=== PATIENT | male | born 1940 | race Caucasian/White ===

== ENCOUNTER 2016-11-13 12:13 | Inpatient (IN) | payer OTHER ==
[~2016-11-13] VITALS: Ht 175.3 cm; Wt 136.1 kg
[~2016-11-13 12:13] MED LIST: <VITAMIN> A + D1 APP TOP; ACETAMINOPHEN500 M4 PO; ACETAMINOPHEN650 M2 PO; ACIDOPHILU PO; ALLOPURINOL100 MG PO; ALLOPURINOL300 MG PO; AMIODARONE HCL200 MG PO; AMOX-CLAV 875-1 EACH PO; ANTIVERT 25 MG25 MG PO; ARICEPT10 MG PO; ASPIR 8181 MG PO; AZITHROMYCIN250 M1 PO; BACTRIM DS 8001 TAB PO; BELLADONNA/OPIU1 SU1 PR; BENTYL 10 MG CA10 MG PO; BISACODYL10 MG PR; CALCIUM500 MG PO; CIPRO 500MG TA500 MG PO; CIPRO500 M1 PO; CLOTRIMAZOLE AN TOP; DICYCLOMINE HYD10 MG PO; DIFLUCAN150 MG PO; DIOVAN 160 MG160 MG PO; DIVALPROEX SOD125 M1 PO; DONEPEZIL HYDROC5 MG PO; Ditropan PO; ESCITALOPRAM20 MG PO; Ecotrin PO; FLEET ENEMA 131 UNIT RC; FLORASTOR250 MG PO; GABAPENTIN100 M2 PO; GABAPENTIN100 MG PO; K-DUR 20MEQ TA20 MEQ PO; KEFLEX500 M1 PO; KEFLEX500 MG PO; LASIX20 MG PO; MASON NATURAL325 MG PO; MECLIZINE HCL25 M1 PO; MILK OF MAGNESI30 ML PO; MIRALAX17 GM PO; MIRTAZAPINE15 MG PO; MORPHINE SULFAT15 M1 PO; MORPHINE SULFAT15 MG PO; MORPHINE SULFAT30 M2 PO; MORPHINE SULFAT30 M6 PO; MS CONTIN15 MG PO; MS CONTIN30 MG PO; MSIR PO; MYCOSTATIN POWD15 GM TOP; NEURONTIN100 M1 PO; NORVASC 5MG TAB5 MG PO; NYSTATIN100000 U/2 TOP; NYSTATIN15 G1 TOP; OMEPRAZOLE40 MG PO; OXYBUTYNIN5 MG PO; PANTOPRAZOLE SO40 MG PO; PHOSLO667 M1 PO; SENNA8.6 M1 PO; SENOKOT8.6 MG PO; TRAMADOL HCL50 M1 PO; VIBRAMYCIN 100100 MG PO; VITAMIN D50000 IU PO
[2016-11-13 13:17] LABS: ABSOLUTE BASOPHIL COUNT 0 /CUMM (0.0-0.2); ABSOLUTE EOSINOPHIL COUNT 0.2 /CUMM (0.0-0.7); ABSOLUTE GRANULOCYTE CT 5.3 /CUMM (1.4-6.5); ABSOLUTE LYMPH COUNT 0.8 /CUMM (1.2-3.4); ABSOLUTE MONOCYTE COUNT 0.4 /CUMM (0.10-0.60); BASOPHIL % 0.2 % (0.0-2.0); EOSINOPHIL % 2.5 % (0-5); GRANULOCYTE % 78.3 % (42.2-75.2); MEAN CORPUSCULAR HGB 26.8 PG (27.0-31.0); MEAN CORPUSCULAR VOLUME 83.6 FL (80.0-94.0); MEAN PLATELET VOLUME 9.2 FL (7.4-10.4); PLATELET COUNT 205 /CUMM (130-400); RBC DISTRIBUTION WIDTH 17.1 % (11.5-14.5); RED BLOOD CELL CT 4.43 /CUMM (4.70-6.10); WHITE BLOOD CELL COUNT 6.7 /CUMM (4.8-10.8)
--- NOTE | 2016-11-13 13:20 | ED DYSPNEA/ASTHMA COMPLAINT ---
History of Present Illness General Chief Complaint: Dyspnea (COPD, CHF, Other) Stated Complaint: DIFFICULTY BREATHING Source: patient Exam Limitations: no limitations Vital Signs & Intake/Output Vital Signs & Intake/Output Vital Signs Date Time Temp Pulse Resp B/P Pulse O2 O2 Flow FiO2 Ox Delivery Rate 11/15 0802 97.7 90 20 154/90 96 11/15 0018 98.6 83 20 140/88 91 Room Air 11/14 1616 98.4 90 16 119/67 94 Nasal Cannula 11/14 1010 98 122/84 ED Intake and Output 11/15 0000 11/14 1200 Intake Total 500 420 Output Total 550 850 Balance -50 -430 Intake, IV 300 Intake, Oral 500 120 Number 1 Bowel Movements Output, Urine 550 850 Allergies Coded Allergies: NO KNOWN ALLERGIES (12/26/15) Triage Note: PT BIBA FROM HOME FOR DYSPNEA. PT WAS BEING SEEN BY OCCUPATIONAL THERAPY WHO SAID O2 SAT WAS IN 70'S. PT ARRIVES WITH NORMAL COLORING, NO ACUTE RESP DISTRESS NOTED, O2 SAT 90-94% ON RA. EMS PUT PT ON NRB AT 25% OXYGEN, HOWEVER, PT REFUSED AFTER COUPLE OF MINUTES. Triage Nurses Notes Reviewed? yes HPI: This patient is a 76-year-old female past medical history including atrial fibrillation, COPD, myocardial infarction, hearing loss presented to the emergency department today for evaluation of low oxygen saturation. The patient was brought in by ambulance from home at the request of his occupational therapist was visiting him and reported the patient to have an oxygen saturation in the 70s. The patient is a poor historian due to his hearing loss. When asked if the patient had any pain, he pointed to his chest. He was unable to qualify or quantify this pain. He denied any difficulty breathing. (NASIR ROSA,ROSALVA) Reconcile Medications Acetaminophen 500 MG TABLET 1,000 MG PO TID back pain Allopurinol 100 MG TABLET 1 TAB PO DAILY Gout (Reported) Amiodarone HCl 200 MG TABLET 1 TAB PO DAILY afib (Reported) Amlodipine Besylate 5 MG TABLET 1 TAB PO DAILY HTN (Reported) Betamethasone Dipropionate/C (Clotrimazole and Betamethasone Dipropionate 0) 1 CRE CRE 1 YOCASTA TOP UNKNOWN (Reported) Calcium Acetate 667 MG CAPSULE 1 CAP PO TID CALCIUM SUPPLEMENT (Reported) Donepezil HCl 10 MG TABLET 1 TAB PO DAILY DEMENTIA (Reported) Ergocalciferol (Vitamin D2) (Vitamin D2) 50,000 UNIT CAPSULE 1 CAP PO EVERY Calcium Supplementation (Reported) Furosemide (Lasix) 20 MG TABLET 1 TAB PO DAILY edema (Reported) Gabapentin (Neurontin) 100 MG CAPSULE 1 CAP PO TID neuropathy (Reported) Gabapentin 100 MG CAPSULE 200 MG PO TID neuropathy Nystatin 15 GM CREAM..G. 1 YOCASTA TOP TID PRN rash Tramadol HCl 50 MG TABLET 50 MG PO Q4 PRN PAIN SCALE 7-10 (SEVERE) (EMMANUEL TEAGUE,ORTIZ Llamas) Past History Travel History Traveled to [place] past 21 day No Medical History Any Pertinent Medical History? see below for history Neurological: migraine EENT: hearing loss Cardiovascular: AFIB, CHF (diastolic dysfunction), myocardial infarction Respiratory: COPD Gastrointestinal: GERD, C DIFF Hepatic: NONE Renal: benign prost hyperplasia, chronic kidney disease (h/o CARISA), RENAL FAILURE CKD ARF CHRONIC INDWELLING GARZA hematuria UTI (h/o CARISA episodes) Musculoskeletal: gout Psychiatric: anxiety Endocrine: obesity Blood Disorders: anemia Cancer(s): NONE APPLICATIONS SYSTEM ANALYST/Reproductive: UTI CHRONIC GARZA Other Medical Hx: shingles Paroxysmal atrial fibrillation, GI bleed, diastolic dysfunction, coronary artery disease, hypertension, labyrinthitis, chronic kidney disease, chronic indwelling Garza catheter, BPH, renal calculi, gout, arthritis, DJD, chronic bilateral lower extremity edema, anxiety, depression, iron deficiency anemia. History of MRSA: Yes History of VRE: Yes History of CDIFF: No Surgical History Surgical History: none, . Psychosocial History Who do you live with Spouse Services at Home Nursing What is your primary language Stateless Tobacco Use: Current Not Daily Daily Tobacco Use Amount/Type: Smokeless tobacco daily ETOH Use: 6 Illicit Drug Use: UTD Family History Family History, If Any: BROTHER (Brain tumor). FATHER Relation not specified for: FH: hypertension Hx Contributory? No (ROSALVA BEST PA-C) Review of Systems Review of Systems Constitutional: Reports: no symptoms. Respiratory: Reports: see HPI. Cardiovascular: Reports: see HPI. Comments Unable to obtain full review of systems due to this patient being a poor historian (ROSALVA BEST PA-C) Physical Exam Physical Exam Respiratory: chest non-tender, no respiratory distress, SCATTERED WHEEZES HEARD THROUGHOUT ALL LUNG GARCIA. nO RALES OR RHONCHI APPRECIATED. Comments: Well-developed well-nourished person in no acute distress HEENT: Normal EENT exam, head normocephalic, moist mucous membranes PERRLA bilaterally Pharynx normal. No swelling or edema. Neck: Supple, no lymphadenopathy Back: Normal inspection Cardiovascular: Regular rate and rhythm with no murmurs, rubs, or gallops Respiratory: Chest nontender. No respiratory distress. Breath sounds clear to auscultation bilaterally Abdomen: Obese. Soft. Nontender and nondistended Extremity: Normal and equal pulses. Bilateral, 1+ pitting edema with no weeping , erythema, or ecchymosis Neuro: Alert oriented x3, Cranial nerves II through XII grossly intact. Skin: No appreciable rash on exposed skin, skin is warm and dry. Psych: Mood and affect is normal Core Measures ACS in differential dx? Yes Severe Sepsis Present: No Septic Shock Present: No (NASIR ROSA,ROSALVA) Progress Differential Diagnosis: asthma, AMI, bronchitis, costochondritis, CHF, COPD, musculoskeletal pain, pericarditis, pulmonary embolism, pneumonia, pneumothorax, rib fracture, unstable angina Plan of Care: Orders Procedure Date/time Status BASIC ELECTROLYTES PLUS BUN&CR 11/15 0600 Complete MISSING MEDICATION FORM 11/15 UNK Active Garza, Insertion/Removal/Asses 11/14 1838 Active CULTURE,URINE 11/14 1833 Active BLOOD CULTURE 11/14 1833 Active Transfer patient to 11/14 UNK Active Current Medications Sig/Frandy Start time Last Medication Dose Stop Time Status Admin Ergocalciferol 50,000 IU We 11/19 1800 AC (Drisdol) Nystatin 1 YOCASTA TID PRN 11/13 2200 AC (Mycostatin) Acetaminophen 650 MG Q6P PRN 11/13 2100 AC (Tylenol) Laboratory Tests 11/15/16 0659: Anion Gap 13, Estimated GFR 26 L, BUN/Creatinine Ratio 22.9 Microbiology 11/145 URINE ROUT: Urine Culture - RES 11/14 2054 BLOOD: Blood Culture - RECD 11/14 2034 BLOOD: Blood Culture - RECD Diagnostic Imaging: Viewed by Me: Radiology Read. Discussed w/RAD: Radiology Read. CXR Impression: PATIENT: MARCY LOMELI PRESENT AGE: 76 PATIENT ACCOUNT NO: [id number] : 40 LOCATION: [facility] ORDERING PHYSICIAN: ROSALVA BEST PA-C SERVICE DATE: 11/13/16-8 EXAM TYPE: RAD - XRY- PORTABLE CHEST XRAY EXAMINATION: XR PORTABLE CHEST CLINICAL INFORMATION: Shortness of breath. COMPARISON: 07/03/2016. TECHNIQUE: Portable AP view of the chest was obtained. FINDINGS: The heart appears mildly enlarged. Increased density in the mediastinum inferiorly is likely previously identified tortuous thoracic aorta. Lung volumes are diminished. No focal infiltrate is identified although penetration at the left lung base is somewhat limited due to patient body habitus. There is elevation of the right hemidiaphragm with a moderately to markedly dilated air filled loop of bowel likely the hepatic flexure of the colon which was seen interposed between the liver and anterior abdominal wall interposed on previous CT. Clinical correlation for abdominal symptoms is recommended and follow-up abdominal imaging if indicated. IMPRESSION: Heart is mildly enlarged. Low lung volumes without definite infiltrate or pulmonary edema. There is a moderately to markedly dilated air-filled loop of probable colon under the right hemidiaphragm. Abdominal x-ray should be considered. DICTATED BY: MARY HOLLINGSWORTH MD DATE/TIME DICTATED:11/13/161310 INFORMATION SECURITY RISK ANALYST:EFREM DATE/TIME TRANSCRIBED:11/13/161310 CONFIDENTIAL, DO NOT COPY WITHOUT APPROPRIATE AUTHORIZATION. <Electronically signed in Other Vendor System> SIGNED BY: MARY HOLLINGSWORTH MD 11/13/16 1322 Initial ED EKG: AFIB, RBBB, nonspecific ST T wave chg, 106 BPM Comments: 11/13/2016 1:57:30 PM: I discussed this patient and his workup so far with Dr. Lr. He will be in to evaluate the patient momentarily. 11/13/2016 2:00:42 PM: Dr. Lr is currently at the patient's bedside for face-to -face evaluation. 11/13/2016 2:34:53 PM: This patient was signed out to Dr. Lr for telemetry admission. He will be speaking with on-call director of financial reporting and hospitalist for telemetry admission. (NASIR ROSA,ROSALVA) Comments: I've discussed this patient's case with Dr. Yi. (EMMANUEL TEAGUE,ORTIZ Llamas) Departure Departure Disposition: STILL A PATIENT Condition: Stable Clinical Impression Primary Impression: Elevated d-dimer Secondary Impressions: Acute kidney injury Chest pain Qualifiers: Chest pain type: unspecified Qualified Code: R07.9 - Chest pain, unspecified Hypoxia Referrals: TOMMIE TEAGUE,CARLOS A Andersen (PCP/Family) Departure Forms: Customer Survey General Discharge Information Admission Note Spoke With: JENI YI M.D Documentation of Exam: Documentation of any treatments & extenuating circumstances including Concerns Regarding Discharge (functional status, medication knowledge or non-compliance, living conditions, etc.) that warrant an admission rather than observation: [ This patient is a 76-year-old male with past medical history including chronic kidney disease, acute myocardial infarction, hypertension, and COPD who presented to the emergency department today for evaluation of low oxygen saturations at home. D-dimer is elevated. Troponin 0.06. Atrial fibrillation on EKG which was sinus on prior EKG. This patient is satting between 85 and 92% on room air. He will need to be admitted to telemetry for serial EKGs, serial troponin levels, cardiology consultation, VQ scan to rule out DVT, possible echocardiogram, trend labs, and close monitoring. Given this patient's significant cardiac medical history and history of the present illness, he is a poor candidate for outpatient treatment. Premature discharge could prove medically harmful.] (ROSALVA BEST PA-C) PA/WIDTH STRIPPER Co-Sign Statement Statement: ED Attending supervision documentation- [X] I saw and evaluated the patient. I have also reviewed all the pertinent lab results and diagnostic results. I agree with the findings and the plan of care as documented in the PA's/WIDTH STRIPPER's documentation. [] I have reviewed the ED Record and agree with the PA's/WIDTH STRIPPER's documentation. [] Additions or exceptions (if any) to the PAs/WIDTH STRIPPER's note and plan are summarized below: [] (EMMANUEL TEAGUE,ORTIZ Llamas) Critical Care Note Critical Care Note Critical Care Time: non-applicable (ROSALVA BEST PA-C) Current Medications Sig/Frandy Start time Last Medication Dose Stop Time Status Admin Ergocalciferol 50,000 IU We 11/19 1800 AC (Drisdol) Allopurinol 100 MG DAILY 11/14 1000 AC (Zyloprim) Amiodarone HCl 200 MG DAILY 11/14 1000 AC (Cordarone) Amlodipine Besylate 5 MG DAILY 11/14 1000 AC (Norvasc) Donepezil HCl 10 MG DAILY 11/14 1000 AC (Aricept) Nystatin 1 YOCASTA TID PRN 11/13 2200 AC (Mycostatin) Acetaminophen 650 MG Q6P PRN 11/13 2099 AC (Tylenol) Acetaminophen 1,000 MG Q6P PRN 11/13 2100 AC (Ofirmev) Laboratory Tests 11/14/16 0649: Anion Gap 13, Estimated GFR 21 L, BUN/Creatinine Ratio 21.0, CBC w Diff NO MAN DIFF REQ, RBC 3.80 L, MCV 83.0, MCH 26.9 L, RDW 17.6 H, MPV 9.2, Gran % 85.2 H, Lymphocytes % 10.3 L, Monocytes % 4.1, Eosinophils % 0.1, Basophils % 0.3, Absolute Granulocytes 4.1, Absolute Lymphocytes 0.5 L, Absolute Monocytes 0.2, Absolute Eosinophils 0, Absolute Basophils 0, PUBS MCHC 32.5 L 11/14/16 0250: Troponin I 0.05 11/13/16 2150: Urinalysis LIGHT H, Urine Color YEL, Urine Clarity CLEAR, Urine pH 6.0, Ur Specific [place] 1.025, Urine Protein 100 H, Urine Ketones NEG, Urine Nitrite NEG, Urine Bilirubin NEG, Urine Urobilinogen 0.2, Ur Leukocyte Esterase TRACE H , Ur Microscopic SEDIMENT EXAMINED, Urine RBC 1-3, Urine WBC 5-10 H, Ur Epithelial Cells FEW, Urine Mucus FEW, Urine Hemoglobin MOD H, Urine Glucose NEG 11/13/16 2035: Troponin I 0.05 11/13/16 1345: Anion Gap 16, Estimated GFR 17 L, BUN/Creatinine Ratio 19.1, Glucose 93, Calcium 7.8 L, Magnesium 2.3, Total Bilirubin 0.4, AST 23, ALT 25, Alkaline Phosphatase 91, Troponin I 0.06, Dpi-T-Khxuaqsplzn Pept 1460 H, Total Protein 6.9, Albumin 3.7, Globulin 3.2, Albumin/Globulin Ratio 1.2, D-Dimer 1026 H 11/13/16 1255: pH 7.31 L, pCO2 42, pO2 72 L, HCO3 20 L, ABG O2 Sat (Measured) 92.0 L, P-50 (Temp Corrected) N, Carboxyhemoglobin 1.1 L, O2 Concentration % .21, O2 Delivery Method RA, CBC w Diff NO MAN DIFF REQ, RBC 4.43 L, MCV 83.6, MCH 26.8 L, RDW 17.1 H, MPV 9.2, Gran % 78.3 H, Lymphocytes % 12.5 L, Monocytes % 6.5, Eosinophils % 2.5, Basophils % 0.2, Absolute Granulocytes 5.3, Absolute Lymphocytes 0.8 L, Absolute Monocytes 0.4, Absolute Eosinophils 0.2, Absolute Basophils 0, PUBS MCHC 32.0 L, Phlebotomy Draw Site RIGHT RADIAL Comments: I've discussed this patient's case with Dr. Yi. (EMMANUEL TEAGUE,ORTIZ Llamas) Departure Departure Disposition: STILL A PATIENT Condition: Stable Clinical Impression Primary Impression: Elevated d-dimer Secondary Impressions: Acute kidney injury Chest pain Qualifiers: Chest pain type: unspecified Qualified Code: R07.9 - Chest pain, unspecified Hypoxia Referrals: TOMMIE TEAGUE,CARLOS A Andersen (PCP/Family) Departure Forms: Customer Survey General Discharge Information Admission Note Spoke With: JENI YI M.D Documentation of Exam: Documentation of any treatments & extenuating circumstances including Concerns Regarding Discharge (functional status, medication knowledge or non-compliance, living conditions, etc.) that warrant an admission rather than observation: [ This patient is a 76-year-old male with past medical history including chronic kidney disease, acute myocardial infarction, hypertension, and COPD who presented to the emergency department today for evaluation of low oxygen saturations at home. D-dimer is elevated. Troponin 0.06. Atrial fibrillation on EKG which was sinus on prior EKG. This patient is satting between 85 and 92% on room air. He will need to be admitted to telemetry for serial EKGs, serial troponin levels, cardiology consultation, VQ scan to rule out DVT, possible echocardiogram, trend labs, and close monitoring. Given this patient's significant cardiac medical history and history of the present illness, he is a poor candidate for outpatient treatment. Premature discharge could prove medically harmful.] (NASIR ROSA,ROSALVA) PA/WIDTH STRIPPER Co-Sign Statement Statement: ED Attending supervision documentation- [X] I saw and evaluated the patient. I have also reviewed all the pertinent lab results and diagnostic results. I agree with the findings and the plan of care as documented in the PA's/WIDTH STRIPPER's documentation. [] I have reviewed the ED Record and agree with the PA's/WIDTH STRIPPER's documentation. [] Additions or exceptions (if any) to the PAs/WIDTH STRIPPER's note and plan are summarized below: [] (EMMANUEL TEAGUE,ORTIZ Llamas) Critical Care Note Critical Care Note Critical Care Time: non-applicable (NASIR ROSA,ROSALVA)
--- NOTE | 2016-11-13 16:14 | History & Physical ---
DELFINOMIGELMICHELLE VERDIN 11/13/16 1614: General Information and HPI MD Statement: I have seen and personally examined MARCY LOMELI and documented this H&P. The patient is a 76 year old M who presented with a patient stated chief complaint of Shortness of breath Source of Information: patient, old records Exam Limitations: unable to give history, clinical condition, confusion History of Present Illness: 76 year old morbidly obese gentleman with past medical history of Dementia, COPD not on oxygen, CKD, Paroxymal A.fib not on anticoagulation, BPH with chronic indwelling garza,changed about 2 months ago with past urine cultures growing Escherichia coli, ESBL, chronic anemia, gout, anxiety and depression, BIBA for low Oxygen saturation. On interview patient was not answering questions appropriately and history was taken from his who was at bedside. About a month ago he was admitted to [facility] for a nose bleed for which he was admitted for about 3 days and discharged to [facility] for three weeks. He has been home since the past two weeks. Two days prior to admission, stated that he slept all day and night. Yesterday the visiting nurse found him to have low O2 sats, pt refused to come to ED. Today stated that he was unusally talkative and acting out more and not himself. The O2 sat was again found to be low today. Per he did not complain of chest pain,shortness of breath, leg swelling, fever, abdominal pain or decreased PO intake. He has been have chronic diarrhea since the past 8 months and hisl lexapro was thought to be the culprit and was discontinued two months ago. Allergies/Medications Allergies: Coded Allergies: NO KNOWN ALLERGIES (12/26/15) Compliance With Home Meds: GOOD Past History Travel History Traveled to [place] past 21 day No Medical History Neurological: migraine EENT: hearing loss Cardiovascular: AFIB, CHF (diastolic dysfunction), myocardial infarction Respiratory: COPD Gastrointestinal: GERD, C DIFF Hepatic: NONE Renal: benign prost hyperplasia, chronic kidney disease (h/o CARISA), RENAL FAILURE CKD ARF CHRONIC INDWELLING GARZA hematuria UTI (h/o CARISA episodes) Musculoskeletal: gout Psychiatric: anxiety Endocrine: obesity Blood Disorders: anemia Cancer(s): NONE PUBLIC HEALTH STAFF NURSE/Reproductive: UTI CHRONIC GARZA Other Medical Hx: shingles Paroxysmal atrial fibrillation, GI bleed, diastolic dysfunction, coronary artery disease, hypertension, labyrinthitis, chronic kidney disease, chronic indwelling Garza catheter, BPH, renal calculi, gout, arthritis, DJD, chronic bilateral lower extremity edema, anxiety, depression, iron deficiency anemia. History of MRSA: Yes History of VRE: Yes History of CDIFF: No Surgical History Surgical History: none, . Past Family/Social History Family History Relations & Conditions if any BROTHER (Brain tumor). FATHER Relation not specified for: FH: hypertension Psychosocial History Who Do You Live With? spouse Services at Home: Nursing ETOH Use: 6 Illicit Drug Use: UTD Functional Ability ADLs Needs Assist: dressing, eating, toileting, bathing. Ambulation: OFTEN USES WHEELCHAIR Review of Systems Review of Systems Constitutional: Reports: see HPI. Exam & Diagnostic Data Last 24 Hrs of Vital Signs/I&O Vital Signs Date Time Temp Pulse Resp B/P Pulse O2 O2 Flow FiO2 Ox Delivery Rate 11/13 1915 98.7 92 22 150/87 92 Room Air 11/13 1825 99.9 92 20 97 Room Air Room Air 11/13 1623 99.6 84 20 118/76 100 Nasal 2.0L Cannula 11/13 1459 98.6 84 18 136/94 91 Room Air 11/13 1327 92 11/13 1315 93 Room Air Room Air 11/13 1225 99.1 101 20 136/91 93 Room Air Room Air Intake & Output 11/13 1600 11/13 0800 11/13 0000 Intake Total 0 Output Total Balance 0 Intake, Oral 0 Patient 300 lb Weight Physical Exam General Appearance orient to place, beligerent and tangent speech HEENT PERRLA, dry mucous membranes Cardiovascular Normal S1, Normal S2 Lungs b/l decreased breath sounds Abdomen No Tenderness, distended Extremities venous skin stasis changes Last 24 Hrs of Labs/Aurelio: Laboratory Tests 11/13/16 2035: Troponin I Pending 11/13/16 1345: Anion Gap 16, Estimated GFR 17 L, BUN/Creatinine Ratio 19.1, Glucose 93, Calcium 7.8 L, Magnesium 2.3, Total Bilirubin 0.4, AST 23, ALT 25, Alkaline Phosphatase 91, Troponin I 0.06, Wyd-F-Bbhcxdvnmwf Pept 1460 H, Total Protein 6.9, Albumin 3.7, Globulin 3.2, Albumin/Globulin Ratio 1.2, D-Dimer 1026 H 11/13/16 1255: pH 7.31 L, pCO2 42, pO2 72 L, HCO3 20 L, ABG O2 Sat (Measured) 92.0 L, P-50 (Temp Corrected) N, Carboxyhemoglobin 1.1 L, O2 Concentration % .21, O2 Delivery Method RA, CBC w Diff NO MAN DIFF REQ, RBC 4.43 L, MCV 83.6, MCH 26.8 L, RDW 17.1 H, MPV 9.2, Gran % 78.3 H, Lymphocytes % 12.5 L, Monocytes % 6.5, Eosinophils % 2.5, Basophils % 0.2, Absolute Granulocytes 5.3, Absolute Lymphocytes 0.8 L, Absolute Monocytes 0.4, Absolute Eosinophils 0.2, Absolute Basophils 0, PUBS MCHC 32.0 L, Phlebotomy Draw Site RIGHT RADIAL Diagnostic Data EKG Results afib/aflutter, rate 102 CXR Results IMPRESSION: Heart is mildly enlarged. Low lung volumes without definite infiltrate or pulmonary edema. There is a moderately to markedly dilated air-filled loop of probable colon under the right hemidiaphragm. Abdominal x-ray should be considered. Other Results FINDINGS: The supervisor warping department view demonstrates increasing gaseous distention of the transverse colon. This was noted on the previous exam. In addition, there is interposition of the colon between the liver and anterior abdominal wall, also unchanged. The burden of formed stool is less than before. LUNG BASES: There is mild subsegmental dependent atelectasis of both lower lobes. The heart is enlarged. Coronary artery calcifications are seen. LIVER, GALLBLADDER, AND BILIARY TREE: The liver is normal in size and attenuation. Bile ducts are normal. Numerous small gallstones are present within the otherwise normal-appearing gallbladder. PANCREAS: Normal for age. SPLEEN: Unremarkable. ADRENAL GLANDS: Unremarkable. KIDNEYS AND URETERS: Both kidneys measure 10 cm in length. However, there is cortical atrophy as was previously noted. The renal sinus fat is increased. The small exophytic nodule arises from the upper pole of the right kidney is stable in size when compared to a study done in 2011. BLADDER: Empty via a Garza catheter. GASTROINTESTINAL TRACT: The stomach and small bowel are normal. There is a moderate burden of formed stool in the right colon and left colon. There is mild stool impaction rectosigmoid colon. The transverse colon is partially interposed between the liver and anterior abdominal wall and is gas filled and distended. No obstruction is suspected. No pericecal inflammatory reaction. No free fluid. ABDOMINAL WALL: Small fat-containing right inguinal hernia is seen. LYMPH NODES: Normal. VASCULAR: Unremarkable. PELVIC VISCERA: The prostate gland is small. OSSEOUS STRUCTURES: All visualized discs from the lower cervical spine and throughout the LS-spine show degeneration. Vertebral height is preserved. Again there is Paget's disease involving the left hemipelvis. Heterotopic bone formation is seen in the soft tissues anterior to the proximal right femur. IMPRESSION: 1. Chilaiditi's syndrome. Dilated transverse colon. No intestinal obstruction. 2. Cholelithiasis without cholecystitis. (Gallstones too numerous to count). CT HEAD WO IV CONTRAST FINDINGS: There is no evidence of acute intracranial hemorrhage or territorial infarction. No abnormal mass effect or midline shift is seen. Betts to white matter differentiation is well preserved. No extra-axial fluid collections are identified. There is atrophy with prominence of the ventricles and the sulci and hypodensity of the periventricular white matter due to chronic small vessel ischemic disease. There is vascular calcifications of the internal carotid arteries bilaterally.. The osseous structures and soft tissues are normal. 2.4 cm retention cyst at the left maxillary sinus. Underpneumatized mastoid air cells. Normal aeration of the middle ear cavities. IMPRESSION: No acute intracranial pathology. Assessment/Plan Assessment: 76 year old morbidly obese gentleman with past medical history of Dementia, COPD not on oxygen, CKD, Paroxymal A.fib not on anticoagulation, BPH with chronic indwelling garza,changed about 2 months ago with past urine cultures growing Escherichia coli, ESBL, chronic anemia, gout, anxiety and depression, BIBA for low Oxygen saturation. In ED O2 sats were in low 90's, labs signficant for increased bun/cr, elevated d-dimier and ABG showed mild respiratory acidosis. As Ranked By This Provider Problem List: 1. Altered mental status Assessment/Plan CT scan r/o acute pathology possible delirum triggers: hypoxia vs UTI vs dehydration will montor and if no improvement after management noted will involve psych. 2. Elevated d-dimer Assessment/Plan will obtain V/Q scan to r/o PE 3. Paroxysmal atrial fibrillation Assessment/Plan continue amiodarone, norvasc 4. Acute on CKD Assessment/Plan most likely pre-renal azotemia will give a bolus of 500 ml, followed by maintence fluids 5. DVT prophylaxis Assessment/Plan sc heparin 6. Full code status Core Measures/Miscellaneous Acute Coronary Syndrome ACS Diagnosis: No Cerebrovascular Accident CVA/TIA Diagnosis: No Congestive Heart Failure CHF Diagnosis: No Venous Thromboembolism VTE Risk Factors: Age > 40, Obesity VTE Prophylaxis Ordered Inpt: Pharm- Heparin No Mech VTE prophylaxis d/t: LE Edema No VTE Pharm Prophylaxis d/t: No contraindications VTE Diagnosis: No VTE Type: NONE VTE Confirmed by (Test): NONE Severe Sepsis Severe Sepsis Present: No Septic Shock Septic Shock Present: No Miscellaneous Documentation Attending Case Discussed With: JENI HENDRICKS M.D, JAMES 11/13/16 1615: General Information and HPI Allergies/Medications Home Med list Acetaminophen 500 MG TABLET 1,000 MG PO TID back pain Allopurinol 100 MG TABLET 1 TAB PO DAILY Gout (Reported) Amiodarone HCl 200 MG TABLET 1 TAB PO DAILY afib (Reported) Amlodipine Besylate 5 MG TABLET 1 TAB PO DAILY HTN (Reported) Betamethasone Dipropionate/C (Clotrimazole and Betamethasone Dipropionate 0) 1 CRE CRE 1 YOCASTA TOP UNKNOWN (Reported) Calcium Acetate 667 MG CAPSULE 1 CAP PO TID CALCIUM SUPPLEMENT (Reported) Donepezil HCl 10 MG TABLET 1 TAB PO DAILY DEMENTIA (Reported) Ergocalciferol (Vitamin D2) (Vitamin D2) 50,000 UNIT CAPSULE 1 CAP PO EVERY Calcium Supplementation (Reported) Furosemide (Lasix) 20 MG TABLET 1 TAB PO DAILY edema (Reported) Gabapentin (Neurontin) 100 MG CAPSULE 1 CAP PO TID neuropathy (Reported) Gabapentin 100 MG CAPSULE 200 MG PO TID neuropathy Nystatin 15 GM CREAM..G. 1 YOCASTA TOP TID PRN rash Tramadol HCl 50 MG TABLET 50 MG PO Q4 PRN PAIN SCALE 7-10 (SEVERE) Core Measures/Miscellaneous Miscellaneous Documentation Primary Care Physician: TOMMIE TEAGUE,CARLOS A Andersen Patient sees these Specialists Perianesthesia Rn Level of Patient Care: Telemetry Resident Review Statement Resident Statement: examined this patient, discussed with legal summer intern, agreed with legal summer intern, discussed with family, reviewed EMR data (avail), reviewed images Other Findings: 76 YO man with past medical history of Dementia, COPD not on oxygen, CKD, A.fib not on anticoagulation, BPH with chronic indwelling garza, chronic anemia, gout, anxiety, depression who was last admitted to [facility] in June 2016 and presenting with one-day history of altered mental status predominantly excessive talking and an incidence of hypoxia by visiting nurse with oxygen saturation of 85%. The patient was by bedside and volunteers most of the history as the patient himself is very hard of hearing. He has no history of cough, runny nose, shortness of breath and also denies chest pain though he reported the symptoms to the ER physician. Per the patient has been in his normal state of health with normal appetite no nausea or vomiting he has a chronic indwelling catheter for which she follows with Dr. Chatman and has been on schedule for his catheter changes. He has not had any fevers or chills. On arrival the patient was afebrile MAXIMUM TEMPERATURE 99.1, tachycardic heart rate of 101 respiration of 20 blood pressure 136/91 and saturating 93% on room air, during examination the patient was not on oxygen and was saturating at 94- 96%. Physical examination: obese gentleman not in acute distress, oriented to person and place patient is very vocal strongly insisting to get water to drink before talking or being examined. He has dry mucous membranes with thick mucoid saliva HEENT: no distended neck vessels Respiratory system: decreased breath sounds bilaterally no crackles or crepitations. Abdomen: obese abdomen uniform no palpable mass nor tenderness elicited Extremities: venous stasis skin changes but no any open wounds no edema or cyanosis. Labs: patient has anemia with H&H of 11.8 and 37.5, normal lymphocytes 6700, but area nitrogen of 67 with creatinine of 3.5 and GFR of 17 this is significant deterioration from September 12 when he had creatinine of 1.9 and a GFR of 55 ABG: pH of 7.1 and by mouth oxygen of 72 Imaging: CXR: Low lung volumes without definite infiltrate or pulmonary edema Abdominal CT: Chilaiditi's syndrome. Dilated transverse colon. No intestinal obstruction. Cholelithiasis without cholecystitis. (Gallstones too numerous to count). Assessment and plan: This is a 76 years old gentleman presenting with one-day history of after mental status mainly hyperactivity was found in the field to be hypoxic but on presentation patient had normal oxygen saturation and is saturating well on room air. On examination the patient appears dry with very dry mucous membrane and mucoid saliva, he has ranged renal function with significant increasing creatinine and blood urea nitrogen. Problem list CARISA on CKD Altered mental status A. fib COPD Dementia We will admit the patient to the telemetry floor, keep the patient on auto body repair teacher continue to monitor vital signs every shift and manage different conditions as outlined below. CARISA on CKD Patient appears dry and has a significant change in renal parameters. Will give the patient 500 mL of half normal saline and then continue with half normal saline at 100 mL/h. Repeat renal function tomorrow and if there is no improvement consider nephrology consult. Patient started on heart health diet encourage fluid intake and monitor I and O's. will hold Lasix and consider restarting pending improvement of renal function. Altered mental status Patient reported to be hypoactive more than usual, can be a manifestation of hyperuricemia. Will get a stat head CT scan to rule out any acute brain insult. Chest discomfort Patient reported chest discomfort but in questioning during admission denies any chest pain or palpitations. He has history of coronary artery disease in the past. Will do serial troponin and EKG to rule out ACS. Paroxysmal A. fib Shunt has history of A. fib and is on amiodarone 200 mg daily. Not on anticoagulation February 27 GI bleeding and patient not following up with Coumadin clinic. I have restarted his amiodarone. We'll continue to monitor closely. Dementia Patient has history of dementia and is on Aricept 10 mg daily. Will continue the medication and avoid delirium inducing medications. Hypertension: Continue with home antihypertensive medication amlodipine 5 mg daily, continue to monitor blood pressure. JNEI HENDRICKS MD 11/13/16 9655: Attending MD Review Statement Attending Statement Attending Statement: examined this patient, discuss w/resident/PA/AGRICULTURAL TECHNICAL OFFICER, agreed w/resident/PA/AGRICULTURAL TECHNICAL OFFICER, reviewed EMR data (avail), discussed with nursing, discussed with case mgmt, amended to note Attending Assessment/Plan: Patient seen and examined. I have reviewed and agree with resident's notes. He is a 76-year-old male with history of known oxygen-dependent COPD and atrial fibrillation not on Coumadin. He was brought to the emergency room after visiting nurses reported the patient was hypoxic. He reported similar findings yesterday outpatient mechanical ER. Upon arrival emergency room she was hemodynamically stable. Initially pulse oximetry could not be obtained due to cold extremities entry was saturating 96 room air. Patient is a poor historian responsibly very talkative which his reports is new for him. He however was coherent and oriented 3. He had no focal deficits on examination. He had dry oral mucosa. Lungs are clear bilaterally he has no peripheral edema. Laboratory workup revealed acute on chronic kidney disease and markedly elevated d-dimer. Chest x-ray showed no infectious process. Dilated loops of bowel noted on the x-ray and CT abdomen was obtained pressure dilated loops of bowel patient appeared to be chronic for the patient. Head CT was also obtained which showed no acute intracranial process. Patient offers no respiratory complaints. denies any respiratory complaints at home. ER reports that initially mention patient be dyspneic and complained of chest pain are patient and deny this. Plan: -Monitor on telemetry service for 24 hours to rule out arrhythmia and trend troponins. -VQ scan in to rule out pulmonary embolism although this appears less likely given his lack of pulmonary symptoms and the fact that he is actually not hypoxic. -His acute kidney injury appears to be prerenal. No evidence of obstructive disease noted on abdominal CT. We'll hydrate with IV fluids overnight. Hold his lasix. -Continue patient on his routine home regimen.
--- NOTE | 2016-11-13 16:23 | CT SCAN REPORT ---
EXAMINATION: CT ABDOMEN AND PELVIS WITHOUT CONTRAST CLINICAL INFORMATION: Air-filled dilated hepatic flexure of the colon beneath the right hemidiaphragm on a chest x-ray done today. COMPARISON: Chest x-ray done earlier this afternoon. CT of the abdomen and pelvis on 12/26/2015. TECHNIQUE: Multidetector volumetric imaging was performed from the superior aspect of the liver through the pubic symphysis. Sagittal and coronal reformatted images were obtained on the technologist's workstation. DLP: 2075 mGy-cm FINDINGS: The hydraulic hammer operator view demonstrates increasing gaseous distention of the transverse colon. This was noted on the previous exam. In addition, there is interposition of the colon between the liver and anterior abdominal wall, also unchanged. The burden of formed stool is less than before. LUNG BASES: There is mild subsegmental dependent atelectasis of both lower lobes. The heart is enlarged. Coronary artery calcifications are seen. LIVER, GALLBLADDER, AND BILIARY TREE: The liver is normal in size and attenuation. Bile ducts are normal. Numerous small gallstones are present within the otherwise normal-appearing gallbladder. PANCREAS: Normal for age. SPLEEN: Unremarkable. ADRENAL GLANDS: Unremarkable. KIDNEYS AND URETERS: Both kidneys measure 10 cm in length. However, there is cortical atrophy as was previously noted. The renal sinus fat is increased. The small exophytic nodule arises from the upper pole of the right kidney is stable in size when compared to a study done in 2011. BLADDER: Empty via a Fleming catheter. GASTROINTESTINAL TRACT: The stomach and small bowel are normal. There is a moderate burden of formed stool in the right colon and left colon. There is mild stool impaction rectosigmoid colon. The transverse colon is partially interposed between the liver and anterior abdominal wall and is gas filled and distended. No obstruction is suspected. No pericecal inflammatory reaction. No free fluid. ABDOMINAL WALL: Small fat-containing right inguinal hernia is seen. LYMPH NODES: Normal. VASCULAR: Unremarkable. PELVIC VISCERA: The prostate gland is small. OSSEOUS STRUCTURES: All visualized discs from the lower cervical spine and throughout the LS-spine show degeneration. Vertebral height is preserved. Again there is Paget's disease involving the left hemipelvis. Heterotopic bone formation is seen in the soft tissues anterior to the proximal right femur. IMPRESSION: 1. Chilaiditi's syndrome. Dilated transverse colon. No intestinal obstruction. 2. Cholelithiasis without cholecystitis. (Gallstones too numerous to count).
--- NOTE | 2016-11-13 18:27 | CT SCAN REPORT ---
EXAMINATION: CT HEAD WITHOUT CONTRAST CLINICAL INFORMATION: Acute agitation. COMPARISON: CT head 12/26/2015 TECHNIQUE: Contiguous axial imaging was performed from the skull base to vertex without intravenous administration of contrast. DLP: 1201.41 mGy-cm FINDINGS: There is no evidence of acute intracranial hemorrhage or territorial infarction. No abnormal mass effect or midline shift is seen. Betts to white matter differentiation is well preserved. No extra-axial fluid collections are identified. There is atrophy with prominence of the ventricles and the sulci and hypodensity of the periventricular white matter due to chronic small vessel ischemic disease. There is vascular calcifications of the internal carotid arteries bilaterally.. The osseous structures and soft tissues are normal. 2.4 cm retention cyst at the left maxillary sinus. Underpneumatized mastoid air cells. Normal aeration of the middle ear cavities. IMPRESSION: No acute intracranial pathology.
[2016-11-13 19:15] VITALS: BP 150/87
[2016-11-13 23:35] VITALS: BP 148/86
[2016-11-14 07:48] LABS: ABSOLUTE BASOPHIL COUNT 0 /CUMM (0.0-0.2); ABSOLUTE EOSINOPHIL COUNT 0 /CUMM (0.0-0.7); ABSOLUTE GRANULOCYTE CT 4.1 /CUMM (1.4-6.5); ABSOLUTE LYMPH COUNT 0.5 /CUMM (1.2-3.4); ABSOLUTE MONOCYTE COUNT 0.2 /CUMM (0.10-0.60); MEAN CORPUSCULAR HGB CONC 32.5 G/DL (33.0-37.0)
[2016-11-14 08:16] LABS: BASOPHIL % 0.3 % (0.0-2.0); EOSINOPHIL % 0.1 % (0-5); MEAN CORPUSCULAR HGB 26.9 PG (27.0-31.0); MEAN PLATELET VOLUME 9.2 FL (7.4-10.4); PLATELET COUNT 182 /CUMM (130-400); RBC DISTRIBUTION WIDTH 17.6 % (11.5-14.5); WHITE BLOOD CELL COUNT 4.9 /CUMM (4.8-10.8)
[2016-11-14 08:19] LABS: HEMATOCRIT 31.5 % (42-52)
[2016-11-14 08:20] VITALS: BP 136/60
[2016-11-14 08:39] LABS: GRANULOCYTE % 85.2 % (42.2-75.2)
[2016-11-14] MEDS ORDERED: AMIODARONE HCL200 M1 PO (11:34)
[2016-11-14] MEDS ORDERED: ALLOPURINOL100 M1 PO (11:34)
[2016-11-14] MEDS ORDERED: AMLODIPINE BESYL5 M1 PO (11:35)
[2016-11-14] MEDS ORDERED: CALCIUM ACETAT667 M3 PO (11:36)
[2016-11-14] MEDS ORDERED: DONEPEZIL HCL10 M1 PO (11:36)
[2016-11-14] MEDS ORDERED: VITAMIN D250000 UNIT PO (11:39)
[2016-11-14] MEDS ORDERED: LASIX20 M1 PO (11:40)
--- NOTE | 2016-11-14 13:05 | PN- Housestaff ---
See Addendum Subjective Follow-up For: Mental status CARISA on CKD Tele-Events Since Last Visit: Sinus rhythm first-degree heart block SC interval 0.2 to heart rate 88-93 Subjective: Seen and examined patient, sitting in bed eating breakfast. Did not seem to be in any distress, denied difficulty breathing, chest pain Review of Systems Constitutional: Denies: chills, diaphoresis, fever, malaise, weakness, unexplained weight loss. Cardiovascular: Denies: chest pain, edema, orthopena, palpitations, peripheral edema, syncope. Respiratory: Denies: cough, hemoptysis, orthopnea, short of breath, sputum production, stridor, wheezing. Objective Last 24 Hrs of Vital Signs/I&O Vital Signs Date Time Temp Pulse Resp B/P Pulse O2 O2 Flow FiO2 Ox Delivery Rate 11/14 1010 98 122/84 11/14 0820 98.2 72 17 136/60 95 Nasal Cannula 11/14 0000 Room Air 11/13 2335 98.4 90 22 148/86 92 11/13 2313 Room Air Room Air 11/13 1915 98.7 92 22 150/87 92 Room Air 11/13 1900 94 Room Air 11/13 1825 99.9 92 20 97 Room Air Room Air 11/13 1623 99.6 84 20 118/76 100 Nasal 2.0L Cannula 11/13 1459 98.6 84 18 136/94 91 Room Air Intake & Output 11/14 1600 11/14 0800 11/14 0000 Intake Total 420 600 Output Total 850 540 Balance -430 60 Intake, IV 300 Intake, Oral 120 600 Number 1 Bowel Movements Output, Urine 850 540 Physical Exam General Appearance: Alert, No Acute Distress Cardiovascular: Normal S1, Normal S2 Lungs: Normal Air Movement Current Medications: Current Medications Sig/Frandy Start time Last Medication Dose Route Stop Time Status Admin Acetaminophen 650 MG Q6P PRN 11/13 2100 AC PO Acetaminophen 1,000 MG Q6P PRN 11/13 2100 AC 11/14 IV 1010 Allopurinol 100 MG DAILY 11/14 1000 AC 11/14 PO 1009 Amiodarone HCl 200 MG DAILY 11/14 1000 AC 11/14 PO 1010 Amlodipine Besylate 5 MG DAILY 11/14 1000 AC 11/14 PO 1010 Calcium Acetate 667 MG TID 11/13 2200 AC 11/14 PO 1009 Donepezil HCl 10 MG DAILY 11/14 1000 AC 11/14 PO 1010 Ergocalciferol 50,000 IU We 11/19 1800 AC PO Gabapentin 100 MG TID 11/13 220 AC 11/14 PO 1010 Heparin Sodium 5,000 UNIT Q8 11/13 220 AC 11/14 (Porcine) SC 0518 Nystatin 1 YOCASTA TID PRN 11/13 2200 AC TOP Sodium Chloride 1,000 ML .Q10H 11/13 1830 DC 11/14 IV 11/14 1000 0518 Sodium Chloride 500 ML .Q1H 11/13 1745 DC 11/13 IV 11/13 1844 1756 Tramadol HCl 50 MG Q6 PRN 11/13 2100 AC 11/14 PO 1302 Last 24 Hrs of Lab/Aurelio Results Last 24 Hrs of Labs/Mics: Laboratory Tests 11/14/16 0649: Anion Gap 13, Estimated GFR 21 L, BUN/Creatinine Ratio 21.0, CBC w Diff NO MAN DIFF REQ, RBC 3.80 L, MCV 83.0, MCH 26.9 L, RDW 17.6 H, MPV 9.2, Gran % 85.2 H, Lymphocytes % 10.3 L, Monocytes % 4.1, Eosinophils % 0.1, Basophils % 0.3, Absolute Granulocytes 4.1, Absolute Lymphocytes 0.5 L, Absolute Monocytes 0.2, Absolute Eosinophils 0, Absolute Basophils 0, PUBS MCHC 32.5 L 11/14/16 0250: Troponin I 0.05 11/13/16 2150: Urinalysis LIGHT H, Urine Color YEL, Urine Clarity CLEAR, Urine pH 6.0, Ur Specific [place] 1.025, Urine Protein 100 H, Urine Ketones NEG, Urine Nitrite NEG, Urine Bilirubin NEG, Urine Urobilinogen 0.2, Ur Leukocyte Esterase TRACE H , Ur Microscopic SEDIMENT EXAMINED, Urine RBC 1-3, Urine WBC 5-10 H, Ur Epithelial Cells FEW, Urine Mucus FEW, Urine Hemoglobin MOD H, Urine Glucose NEG 11/13/16 2035: Troponin I 0.05 11/13/16 1345: Anion Gap 16, Estimated GFR 17 L, BUN/Creatinine Ratio 19.1, Glucose 93, Calcium 7.8 L, Magnesium 2.3, Total Bilirubin 0.4, AST 23, ALT 25, Alkaline Phosphatase 91, Troponin I 0.06, Jzd-A-Anxiyqlimzv Pept 1460 H, Total Protein 6.9, Albumin 3.7, Globulin 3.2, Albumin/Globulin Ratio 1.2, D-Dimer 1026 H Assessment/Plan Assessment: 76 year old morbidly obese gentleman with past medical history of Dementia, COPD not on oxygen, CKD, Paroxymal A.fib not on anticoagulation, BPH with chronic indwelling hoang,changed about 2 months ago with past urine cultures growing Escherichia coli, ESBL, chronic anemia, gout, anxiety and depression, BIBA for low Oxygen saturation. Currently saturating low 90s on room air. No overnight events noted on telemetry. Continues to be easily agitated. 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 Dilated transverse colon, no intestinal obstruction and Cholelithiasis without cholecystitis. Problem list: Hypoxia-resolved COPD Hypertension Acute on chronic kidney disease Indwelling Hoang catheter Chronic anemia Dementia Gout Chilaiditi's syndrome Plan: -Will discontinue telemetry monitoring and transfer to [facility] floor when bed available -Patient declined VQ scan after being taken down for it. -Creatinine improved with IV hydration to 2.9, he most likely has underlying chronic renal insufficiency secondary to hypertension, nephrology consult requested. -Continue home meds of Aricept, Norvasc, amiodarone, allopurinol, gabapentin -On heart healthy diet DVT prophylaxis with subcutaneous heparin Patient is full code Problem List: 1. Acute on CKD 2. Benign hypertension 3. Depression 4. Hoang catheter half-way use Pain Ratin Pain Location: na Pain Goal: Pain 4 or less Pain Plan: current regimen Tomorrow's Labs & Rationales: carisa= bep
--- NOTE | 2016-11-14 15:32 | Cons- Nephrology ---
General Information and HPI Consulting Request Date of Consult: 11/14/16 Requested By: JENI HENDRICKS M.D Reason for Consult: CKD/CARISA Source of Information: patient, old records History of Present Illness: The patient is a 76-year-old man with a multitude of comorbidities including CKD stage III with serum creatinine levels have generally been abnormal for the past 7 or 8 years with creatinine levels that have generally been in the mid 1's to mid 2's, occasionally as high as the low-mid 4's in October and December of 2015. His underlying kidney disease is thought to be related to long-standing hypertension, perhaps with an element of obstructive disease (he has a chronic Garza), and perhaps also related to renal damage from several bouts of acute tubular necrosis in the setting of sepsis. In addition to hypertension, CKD stage III, urosepsis with bouts of acute tubular necrosis, and the need for chronic Garza drainage, there is also a history of morbid obesity, dementia, coronary artery disease with history of VA, COPD, gout, anemia, recurrent UTIs and depression. He is now admitted because of mild alteration in mental status and low O2 saturation. According to his , there were no complaints of chest pain, shortness of breath, cough, fever, nausea, vomiting or abdominal pain. He has had chronic diarrhea over the past 6-8 months. On admission yesterday his serum creatinine was 3.5 falling to 2.9 today. His most recent baseline creatinine was 1.9 on 09/12/16. He has been no recent exposure to NSAIDs, aminoglycosides or parenteral contrast. Past medical history is as noted above Medications: See below Allergies: No known drug allergies Family history: Brother with brain tumor; positive family history for hypertension but negative for kidney disease Social history lives with spouse, no history of alcohol or drug abuse and no history of cigarette smoking. Allergies/Medications Allergies: Coded Allergies: NO KNOWN ALLERGIES (12/26/15) Home Med List: Acetaminophen 500 MG TABLET 1,000 MG PO TID back pain Allopurinol 100 MG TABLET 1 TAB PO DAILY Gout (Reported) Amiodarone HCl 200 MG TABLET 1 TAB PO DAILY afib (Reported) Amlodipine Besylate 5 MG TABLET 1 TAB PO DAILY HTN (Reported) Betamethasone Dipropionate/C (Clotrimazole and Betamethasone Dipropionate 0) 1 CRE CRE 1 YOCASTA TOP UNKNOWN (Reported) Calcium Acetate 667 MG CAPSULE 1 CAP PO TID CALCIUM SUPPLEMENT (Reported) Donepezil HCl 10 MG TABLET 1 TAB PO DAILY DEMENTIA (Reported) Ergocalciferol (Vitamin D2) (Vitamin D2) 50,000 UNIT CAPSULE 1 CAP PO EVERY WED Calcium Supplementation (Reported) Furosemide (Lasix) 20 MG TABLET 1 TAB PO DAILY edema (Reported) Gabapentin (Neurontin) 100 MG CAPSULE 1 CAP PO TID neuropathy (Reported) Gabapentin 100 MG CAPSULE 200 MG PO TID neuropathy Nystatin 15 GM CREAM..G. 1 YOCASTA TOP TID PRN rash Tramadol HCl 50 MG TABLET 50 MG PO Q4 PRN PAIN SCALE 7-10 (SEVERE) Review of Systems Review of Systems: Review of Systems: Gen: negfever/chills. +confusion Skin: neg rash, pruritus Eye: neg visual changes, diplopia ENT: poor hearing changes, no rhinitus CV: neg CP, SOB, LOZANO, PND, orthopnea Pulm: neg cough, sputum, hemoptysis GI: neg nausea, vomiting, diarrhea, abdominal pain, hematemesis, BRBPR : chronic garza cath b/c urethral stricture Musculoskeletal: neg myalgias, arthralgias Neuro: neg weakness, numbness Psych: +confusion/mental status changes Heme: neg bruising, easy bleeding, clots Past History Travel History Traveled to [place] past 21 day No Medical History Blood Transfusion Hx: No Neurological: migraine EENT: hearing loss Cardiovascular: AFIB, CHF (diastolic dysfunction), myocardial infarction Respiratory: COPD Gastrointestinal: GERD, C DIFF Hepatic: NONE Renal: benign prost hyperplasia, chronic kidney disease (h/o CARISA), RENAL FAILURE CKD ARF CHRONIC INDWELLING GARZA hematuria UTI (h/o CARISA episodes) Musculoskeletal: gout Psychiatric: anxiety Endocrine: obesity Blood Disorders: anemia Cancer(s): NONE EHS ENGINEER/Reproductive: UTI CHRONIC GARZA Other Medical Hx: shingles Paroxysmal atrial fibrillation, GI bleed, diastolic dysfunction, coronary artery disease, hypertension, labyrinthitis, chronic kidney disease, chronic indwelling Garza catheter, BPH, renal calculi, gout, arthritis, DJD, chronic bilateral lower extremity edema, anxiety, depression, iron deficiency anemia. Surgical History Surgical History: 1 . Family History Relations & Conditions If Any: BROTHER (Brain tumor). FATHER Relation not specified for: FH: hypertension Psychosocial History Where Do You Live? Home Who Do You Live With? spouse Services at Home: Nursing Smoking Status: Former Smoker ETOH Use: 6 Illicit Drug Use: UTD Functional Ability ADLs Needs Assist: dressing, eating, toileting, bathing. Ambulation: OFTEN USES WHEELCHAIR Exam & Diagnostic Data Vital Signs and I&O Vital Signs Date Time Temp Pulse Resp B/P Pulse O2 O2 Flow FiO2 Ox Delivery Rate 11/14 1010 98 122/84 11/14 0820 98.2 72 17 136/60 95 Nasal Cannula 11/14 0000 Room Air 11/13 2335 98.4 90 22 148/86 92 11/13 2313 Room Air Room Air 11/13 1915 98.7 92 22 150/87 92 Room Air 11/13 1900 94 Room Air 11/13 1825 99.9 92 20 97 Room Air Room Air 11/13 1623 99.6 84 20 118/76 100 Nasal 2.0L Cannula Intake & Output 11/14 1600 11/14 0400 11/13 1600 11/13 0400 11/12 1600 11/12 0400 Intake Total 420 600 0 Output Total 850 540 Balance -430 60 0 Intake, IV 300 Intake, Oral 120 600 0 Number 1 Bowel Movements Output, Urine 850 540 Patient 300 lb Weight Physical Exam: General: Morbidly obese, pleasant but confused white male in NAD Skin: No rash or jaundice HEENT: Conjunctivae pink, sclerae anicteric, mucous membranes moist, hearing poor bilaterally Neck: Without masses or thyromegaly, no supraclavicular or cervical adenopathy Chest: No rales or rhonchi, decreased breath sounds at bases Heart: Regular rate and rhythm without S3 or rub Abdomen: Morbidly obese, soft and nontender without palpable masses or organomegaly Extremities: Without cyanosis or edema Neuro: Pleasantly confused ,no focal findings, no asterixis or myoclonus Assessment/Plan Assessment/Recommendations Assessment: 76-year-old man with a multitude of comorbidities as detailed above including chronic kidney disease stage III secondary to hypertension, recurrent bouts of acute tubular necrosis due to sepsis and possibly an element of previous obstructive disease with a chronic Garza catheter in place, now comes in with mild alteration in mental status and decreased O2 sat. Renal function worsened from recent baseline but already improving, perhaps related to IV fluid administration. Chest x-ray does not show any evidence for CHF or pneumonia and imaging studies of the head and abdomen are unrevealing. There is no hydronephrosis. Nevertheless, given his history and infectious process needs to be considered. Recommendations: 1. Cultures of blood and urine 2. Gentle hydration with IV normal saline at 50 mL per hour 1-2 L 3. Monitor intake and output, chemistries daily Thank you. We will follow up.
[2016-11-14 16:16] VITALS: BP 119/67
[2016-11-15 00:18] VITALS: BP 140/88
[2016-11-15 08:02] VITALS: BP 154/90
--- NOTE | 2016-11-15 15:58 | PN- Att Addend ---
Attending Addendum Attending Brief Note 76M PMH Dementia, COPD not on oxygen, CKD, Paroxymal A.fib not on anticoagulation, BPH with chronic indwelling hoang admitted with altered mental status, dehydration, and CARISA. Reports of hypoxia as outpatient but has had normal saturation here. Patient is awake and alert x3, oriented, but sometimes engages in inappropriate or tangential speech. Neurological exam grossly normal. AFVSS NAD NCAT Supple RRR CTAB Soft, NTND No c/c/e Pulses intact A&Ox3 no focal deficits Current Medications Sig/Frandy Start time Last Medication Dose Route Stop Time Status Admin Acetaminophen 650 MG Q6P PRN 11/13 2100 AC PO Acetaminophen 1,000 MG Q6P PRN 11/13 2100 AC 11/14 IV 1010 Allopurinol 100 MG DAILY 11/14 1000 AC 11/15 PO 1115 Amiodarone HCl 200 MG DAILY 11/14 1000 AC 11/15 PO 1117 Amlodipine Besylate 5 MG DAILY 11/14 1000 AC 11/15 PO 1116 Calcium Acetate 667 MG TID 11/13 2200 AC 11/15 PO 1114 Donepezil HCl 10 MG DAILY 11/14 1000 AC 11/15 PO 1115 Ergocalciferol 50,000 IU We 11/19 1800 AC PO Gabapentin 100 MG TID 11/13 2200 AC 11/15 PO 1115 Heparin Sodium 5,000 UNIT Q8 11/13 2200 AC 11/15 (Porcine) SC 0532 Nystatin 1 YOCASTA TID PRN 11/13 2200 AC TOP Sodium Chloride 1,000 ML Q20H 11/14 1845 AC 11/14 IV 11/16 1044 2052 Tramadol HCl 50 MG Q6 PRN 11/13 2100 AC 11/15 PO 1115 Laboratory Tests 11/15 0659 Chemistry Sodium (137 - 145 mmol/L) 142 Potassium (3.5 - 5.1 mmol/L) 4.2 Chloride (98 - 107 mmol/L) 107 Carbon Dioxide (22 - 30 mmol/L) 21 L Anion Gap (5 - 16) 13 BUN (9 - 20 mg/dL) 55 H Creatinine (0.7 - 1.2 mg/dL) 2.4 H Estimated GFR (>60 ml/min) 26 L BUN/Creatinine Ratio (7 - 25 %) 22.9 Vital Signs Date Time Temp Pulse Resp B/P Pulse O2 O2 Flow FiO2 Ox Delivery Rate 02/18 1116 74 148/90 11/15 0802 97.7 90 20 154/90 96 11/15 0018 98.6 83 20 140/88 91 Room Air 11/14 1616 98.4 90 16 119/67 94 Nasal Cannula Intake & Output 11/15 1600 11/15 0800 11/15 0000 Intake Total 900 500 Output Total 650 300 Balance 250 200 Intake, Oral 900 500 Output, Urine 650 300 Plan - IV hydration - Nephrology consult - Urinalysis, blood and urine cultures - Continuehome medications - Daily BEP - DVT PPx
[2016-11-15 16:36] VITALS: BP 104/75
[2016-11-16 08:04] VITALS: BP 124/70
--- NOTE | 2016-11-16 08:12 | PN- Housestaff ---
Subjective Follow-up For: - CARISA on CKD Review of Systems Constitutional: Reports: see HPI. Objective Last 24 Hrs of Vital Signs/I&O Vital Signs Date Time Temp Pulse Resp B/P Pulse O2 O2 Flow FiO2 Ox Delivery Rate 11/16 0804 97.8 75 18 124/70 96 Room Air 11/16 0000 Room Air 11/15 1636 98.7 84 17 104/75 01 Room Air 11/15 1116 74 148/90 Intake & Output 11/16 1600 11/16 0800 11/16 0000 Intake Total 200 100 Output Total 900 Balance -700 100 Intake, Oral 200 100 Number 2 1 Bowel Movements Output, Urine 900 Physical Exam General Appearance: No Acute Distress Current Medications: Current Medications Sig/Frandy Start time Last Medication Dose Route Stop Time Status Admin Acetaminophen 650 MG Q6P PRN 11/13 2100 AC PO Acetaminophen 1,000 MG Q6P PRN 11/13 2100 AC 11/16 IV 0241 Allopurinol 100 MG DAILY 11/14 1000 AC 11/15 PO 1115 Amiodarone HCl 200 MG DAILY 11/14 1000 AC 11/15 PO 1117 Amlodipine Besylate 5 MG DAILY 11/14 1000 AC 11/15 PO 1116 Calcium Acetate 667 MG TID 11/13 2200 AC 11/15 PO 2238 Donepezil HCl 10 MG DAILY 11/14 1000 AC 11/15 PO 1115 Ergocalciferol 50,000 IU We 11/19 1800 AC PO Gabapentin 100 MG TID 11/13 2200 AC 11/15 PO 2240 Heparin Sodium 5,000 UNIT Q8 11/13 2200 AC 11/16 (Porcine) SC 0530 Nystatin 1 YOCASTA TID PRN 11/13 2200 AC TOP Sodium Chloride 1,000 ML Q20H 11/14 1845 AC 11/14 IV 11/16 1044 2052 Tramadol HCl 50 MG Q6 PRN 11/13 2100 AC 11/16 PO 0230 Last 24 Hrs of Lab/Aurelio Results Last 24 Hrs of Labs/Mics: Laboratory Tests 11/16/16 0710: Sodium Pending, Potassium Pending, Chloride Pending, Carbon Dioxide Pending, Anion Gap Pending, BUN Pending, Creatinine Pending, BUN/Creatinine Ratio Pending , CBC w Diff Pending, WBC Pending, RBC Pending, Hgb Pending, Hct Pending, MCV Pending, MCH Pending, RDW Pending, Plt Count Pending, MPV Pending, PUBS MCHC Pending Assessment/Plan Assessment: 76 year old morbidly obese gentleman with past medical history of Dementia, COPD not on oxygen, CKD, Paroxymal A.fib not on anticoagulation, BPH with chronic indwelling hoang,changed about 2 months ago with past urine cultures growing Escherichia coli, ESBL, chronic anemia, gout, anxiety and depression, BIBA for low Oxygen saturation. Currently saturating low 90s on room air. No overnight events noted on telemetry. Continues to be easily agitated. 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 Dilated transverse colon, no intestinal obstruction and Cholelithiasis without cholecystitis. Problem list: Hypoxia-resolved COPD Hypertension Acute on chronic kidney disease Indwelling Hoang catheter Chronic anemia Dementia Gout Chilaiditi's syndrome Plan: -Will discontinue telemetry monitoring and transfer to [facility] floor when bed available -Patient declined VQ scan after being taken down for it. -Creatinine improved with IV hydration to 2.9, he most likely has underlying chronic renal insufficiency secondary to hypertension, nephrology consult requested. -Continue home meds of Aricept, Norvasc, amiodarone, allopurinol, gabapentin -On heart healthy diet DVT prophylaxis with subcutaneous heparin Patient is full code
[2016-11-16 08:43] LABS: ABSOLUTE BASOPHIL COUNT 0 /CUMM (0.0-0.2); ABSOLUTE EOSINOPHIL COUNT 0.2 /CUMM (0.0-0.7); ABSOLUTE GRANULOCYTE CT 3.5 /CUMM (1.4-6.5); ABSOLUTE LYMPH COUNT 1.1 /CUMM (1.2-3.4); ABSOLUTE MONOCYTE COUNT 0.4 /CUMM (0.10-0.60); BASOPHIL % 0.6 % (0.0-2.0); EOSINOPHIL % 4.2 % (0-5); GRANULOCYTE % 66.5 % (42.2-75.2); HEMATOCRIT 31.5 % (42-52); MEAN CORPUSCULAR HGB 26.7 PG (27.0-31.0); MEAN CORPUSCULAR HGB CONC 32.3 G/DL (33.0-37.0); MEAN CORPUSCULAR VOLUME 82.7 FL (80.0-94.0); MEAN PLATELET VOLUME 8.9 FL (7.4-10.4); PLATELET COUNT 174 /CUMM (130-400); RBC DISTRIBUTION WIDTH 17.4 % (11.5-14.5); RED BLOOD CELL CT 3.82 /CUMM (4.70-6.10); WHITE BLOOD CELL COUNT 5.2 /CUMM (4.8-10.8)
--- NOTE | 2016-11-16 13:22 | PN- Att Addend ---
Attending Addendum Attending Brief Note 76M PMH Dementia, COPD not on oxygen, CKD, Paroxymal A.fib not on anticoagulation, BPH with chronic indwelling hoang admitted with altered mental status, dehydration, and CARISA. Reports of hypoxia as outpatient but has had normal saturation here. Neurological exam grossly normal. Patient more sleepy today. He is less conversant. Still A&Ox3. Appears to be mildly delirious. Stable vitals, creatinine improving, no acute events. AFVSS NAD NCAT Supple RRR CTAB Soft, NTND No c/c/e Pulses intact A&Ox3 no focal deficits Current Medications Sig/Frandy Start time Last Medication Dose Route Stop Time Status Admin Acetaminophen 1,000 MG .STK-MED ONE 11/16 0238 DC IV 11/16 0239 Acetaminophen 650 MG Q6P PRN 11/13 2100 AC PO Acetaminophen 1,000 MG Q6P PRN 11/13 2100 AC 11/16 IV 1020 Allopurinol 100 MG DAILY 11/14 1000 AC 11/16 PO 1020 Amiodarone HCl 200 MG DAILY 11/14 1000 AC 11/16 PO 1020 Amlodipine Besylate 5 MG DAILY 11/14 1000 AC 11/16 PO 1020 Calcium Acetate 667 MG TID 11/13 2200 AC 11/16 PO 1020 Donepezil HCl 10 MG DAILY 11/14 1000 AC 11/16 PO 1020 Ergocalciferol 50,000 IU We 11/19 1800 AC PO Gabapentin 100 MG TID 11/13 2200 AC 11/16 PO 1020 Heparin Sodium 5,000 UNIT Q8 11/13 2200 AC 11/16 (Porcine) SC 1235 Nystatin 1 YOCASTA TID PRN 11/13 2200 AC TOP Sodium Chloride 1,000 ML Q20H 11/14 1845 DC 11/14 IV 11/16 1044 2052 Tramadol HCl 50 MG Q6 PRN 11/13 2100 AC 11/16 PO 1239 Laboratory Tests 11/16 0710 Chemistry Sodium (137 - 145 mmol/L) 140 Potassium (3.5 - 5.1 mmol/L) 4.3 Chloride (98 - 107 mmol/L) 108 H Carbon Dioxide (22 - 30 mmol/L) 21 L Anion Gap (5 - 16) 12 BUN (9 - 20 mg/dL) 47 H Creatinine (0.7 - 1.2 mg/dL) 2.2 H Estimated GFR (>60 ml/min) 29 L BUN/Creatinine Ratio (7 - 25 %) 21.4 Hematology CBC w Diff NO MAN DIFF REQ WBC (4.8 - 10.8 /CUMM) 5.2 RBC (4.70 - 6.10 /CUMM) 3.82 L Hgb (14.0 - 18.0 G/DL) 10.2 L Hct (42 - 52 %) 31.5 L MCV (80.0 - 94.0 FL) 82.7 MCH (27.0 - 31.0 PG) 26.7 L RDW (11.5 - 14.5 %) 17.4 H Plt Count (130 - 400 /CUMM) 174 MPV (7.4 - 10.4 FL) 8.9 Gran % (42.2 - 75.2 %) 66.5 Lymphocytes % (20.5 - 51.1 %) 21.0 Monocytes % (1.7 - 9.3 %) 7.7 Eosinophils % (0 - 5 %) 4.2 Basophils % (0.0 - 2.0 %) 0.6 Absolute Granulocytes (1.4 - 6.5 /CUMM) 3.5 Absolute Lymphocytes (1.2 - 3.4 /CUMM) 1.1 L Absolute Monocytes (0.10 - 0.60 /CUMM) 0.4 Absolute Eosinophils (0.0 - 0.7 /CUMM) 0.2 Absolute Basophils (0.0 - 0.2 /CUMM) 0 PUBS MCHC (33.0 - 37.0 G/DL) 32.3 L 1. Delirium 2. CARISA 3. Dehydration Plan - IV hydration - Nephrology consult - Urinalysis, blood and urine cultures - Continuehome medications - Daily BEP - DVT PPx - Check B12, TSH - Consider neurology consult if no improvement by tomorrow
[2016-11-16 15:46] VITALS: BP 170/108
[2016-11-16 15:49] VITALS: BP 152/100
[2016-11-16 17:10] VITALS: BP 110/70
[2016-11-16 23:33] VITALS: BP 118/68
[2016-11-17 08:17] VITALS: BP 120/70
--- NOTE | 2016-11-17 10:44 | PN- Nephrology ---
Assessment/Plan Assessment: 1. CARISA: improved 2. CKD: mod, stage 3B; back to baseline Suggestion: OK for discharge from renal perspective Will follow prn Subjective Subjective: Awake C/o back pain No SOB Nonoliguric Objective Vital Signs and I&Os Vital Signs Date Time Temp Pulse Resp B/P Pulse O2 O2 Flow FiO2 Ox Delivery Rate 11/17 0817 98.1 84 20 120/70 94 Room Air 11/17 0000 Room Air 11/16 2333 97.8 80 20 118/68 95 11/16 1710 110/70 11/16 1600 96 Room Air 11/16 1549 152/100 11/16 1546 98.3 88 22 170/108 96 Intake & Output 11/17 1600 11/17 0400 11/16 1600 11/16 0400 11/15 1600 11/15 0400 Intake Total 300 1100 1100 100 900 500 Output Total 950 1125 1750 950 300 Balance -650 -25 -650 100 -50 200 Intake, IV 300 300 Intake, Oral 300 800 800 100 900 500 Number 1 2 1 Bowel Movements Output, Urine 950 1125 1750 950 300 Physical Exam General Appearance: no apparent distress, obese Head: atraumatic Ears, Nose, Throat: hearing aids Neck: normal inspection Respiratory: normal breath sounds, lungs clear Cardiovascular: regular rate/rhythm Abdomen: soft Extremities: no edema Neurologic/Psychiatric: awake, oriented x 3 Current Medications: Current Medications Sig/Frandy Start time Last Medication Dose Route Stop Time Status Admin Acetaminophen 650 MG Q6P PRN 11/13 2100 AC PO Acetaminophen 1,000 MG Q6P PRN 11/13 2100 AC 11/17 IV 0522 Allopurinol 100 MG DAILY 11/14 1000 AC 11/16 PO 1020 Amiodarone HCl 200 MG DAILY 11/14 1000 AC 11/16 PO 1020 Amlodipine Besylate 5 MG DAILY 11/14 1000 AC 11/16 PO 1020 Calcium Acetate 667 MG TID 11/13 2200 AC 11/16 PO 2125 Donepezil HCl 10 MG DAILY 11/14 1000 AC 11/16 PO 1020 Ergocalciferol 50,000 IU We 11/19 1800 AC PO Gabapentin 100 MG TID 11/13 2200 AC 11/16 PO 2125 Heparin Sodium 5,000 UNIT Q8 11/13 2199 AC 11/17 (Porcine) SC 0522 Nystatin 1 YOCASTA TID PRN 02/16 2200 AC TOP Sodium Chloride 1,000 ML Q20H 11/17 0345 AC IV 11/17 2344 Sodium Chloride 1,000 ML Q20H 11/14 1845 DC 11/16 IV 11/16 1044 1708 Tramadol HCl 50 MG Q6 PRN 11/13 2100 AC 11/17 PO 0144 Results Pertinent Lab Results: Laboratory Tests 11/17 11/17 0622 0550 Chemistry Sodium (137 - 145 mmol/L) 139 Potassium (3.5 - 5.1 mmol/L) 4.4 Chloride (98 - 107 mmol/L) 107 Carbon Dioxide (22 - 30 mmol/L) 22 Anion Gap (5 - 16) 10 BUN (9 - 20 mg/dL) 37 H Creatinine (0.7 - 1.2 mg/dL) 1.8 H Estimated GFR (>60 ml/min) 37 L BUN/Creatinine Ratio (7 - 25 %) 20.6 Vitamin B12 (239 - 931 pg/mL) 410 TSH (0.270 - 4.200 uIU/mL) 1.110 Urines Urinalysis LIGHT H Urine Color (YEL,AMB,STR) YEL Urine Clarity (CLEAR) HAZY H Urine pH (5.0 - 8.0) 6.0 Ur Specific [place] (1.001 - 1.035) 1.015 Urine Protein (NEG,<30 MG/DL) 100 H Urine Ketones (NEG) NEG Urine Nitrite (NEG) POS H Urine Bilirubin (NEG) NEG Urine Urobilinogen (0.1 - 1.0 EU/dl) 0.2 Ur Leukocyte Esterase (NEG) MOD H Ur Microscopic SEDIMENT EXAMINED Urine RBC (0 - 5 /HPF) 10-15 H Urine WBC (0 - 2 /HPF) 25-50 H Ur Epithelial Cells (NONE,FEW) FEW Urine Hemoglobin (NEG) LARGE H Urine Glucose (N MG/DL) NEG 11/16 11/15 0710 0659 Chemistry Sodium (137 - 145 mmol/L) 140 142 Potassium (3.5 - 5.1 mmol/L) 4.3 4.2 Chloride (98 - 107 mmol/L) 108 H 107 Carbon Dioxide (22 - 30 mmol/L) 21 L 21 L Anion Gap (5 - 16) 12 13 BUN (9 - 20 mg/dL) 47 H 55 H Creatinine (0.7 - 1.2 mg/dL) 2.2 H 2.4 H Estimated GFR (>60 ml/min) 29 L 26 L BUN/Creatinine Ratio (7 - 25 %) 21.4 22.9 Hematology CBC w Diff NO MAN DIFF REQ WBC (4.8 - 10.8 /CUMM) 5.2 RBC (4.70 - 6.10 /CUMM) 3.82 L Hgb (14.0 - 18.0 G/DL) 10.2 L Hct (42 - 52 %) 31.5 L MCV (80.0 - 94.0 FL) 82.7 MCH (27.0 - 31.0 PG) 26.7 L RDW (11.5 - 14.5 %) 17.4 H Plt Count (130 - 400 /CUMM) 174 MPV (7.4 - 10.4 FL) 8.9 Gran % (42.2 - 75.2 %) 66.5 Lymphocytes % (20.5 - 51.1 %) 21.0 Monocytes % (1.7 - 9.3 %) 7.7 Eosinophils % (0 - 5 %) 4.2 Basophils % (0.0 - 2.0 %) 0.6 Absolute Granulocytes (1.4 - 6.5 /CUMM) 3.5 Absolute Lymphocytes (1.2 - 3.4 /CUMM) 1.1 L Absolute Monocytes (0.10 - 0.60 /CUMM) 0.4 Absolute Eosinophils (0.0 - 0.7 /CUMM) 0.2 Absolute Basophils (0.0 - 0.2 /CUMM) 0 PUBS MCHC (33.0 - 37.0 G/DL) 32.3 L Imaging/Other Studies: CT: KIDNEYS AND URETERS: Both kidneys measure 10 cm in length. However, there is cortical atrophy as was previously noted. The renal sinus fat is increased. The small exophytic nodule arises from the upper pole of the right kidney is stable in size when compared to a study done in 2011. BLADDER: Empty via a Fleming catheter.
--- NOTE | 2016-11-17 13:48 | PN- Housestaff ---
Subjective Follow-up For: Altered mental status Subjective: Patient seen and examined at bedside. Patient is still endorsing back pain which she describes as muscle spasm and notes that he has a history of this problem. He does not endorse any other acute complaints including chest pain, palpitation, fever, chills, nausea, vomiting, abdominal pain or dysuria. Patient mentation is noted to have significantly improved and is alert oriented and is able to sustain a logical conversation Review of Systems Constitutional: Reports: see HPI. Objective Last 24 Hrs of Vital Signs/I&O Vital Signs Date Time Temp Pulse Resp B/P Pulse O2 O2 Flow FiO2 Ox Delivery Rate 11/17 1600 97.9 84 20 140/90 93 11/17 1054 84 132/78 11/17 1054 84 132/78 11/17 0817 98.1 84 20 120/70 94 Room Air 11/17 0000 Room Air 11/16 2333 97.8 80 20 118/68 95 Physical Exam General Appearance: Alert, Oriented X3, Cooperative, obese Skin: No Significant Lesion Neck: Supple Cardiovascular: Regular Rate, Normal S1, Normal S2 Lungs: Clear to Auscultation, Normal Air Movement Abdomen: Normal Bowel Sounds, Soft, No Tenderness Neurological: Normal Tone, Sensation Intact Assessment/Plan Assessment: 76 year old morbidly obese gentleman with past medical history of Dementia, COPD not on oxygen, CKD, Paroxymal A.fib not on anticoagulation, BPH with chronic indwelling hoang,changed about 2 months ago with past urine cultures growing Escherichia coli, ESBL, chronic anemia, gout, anxiety and depression, BIBA for low Oxygen saturation. Currently saturating low 90s on room air. No overnight events noted on telemetry. Continues to be easily agitated. 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 Dilated transverse colon, no intestinal obstruction and Cholelithiasis without cholecystitis. Problem list: Back pain with muscle spasm Altered mental status: Significantly improved and resolving. Hypoxia-resolved COPD Hypertension Acute on chronic kidney disease Indwelling Hoang catheter Chronic anemia Dementia Gout Chilaiditi's syndrome Plan: -We'll start cyclobenzaprine 5 mg 3 times a day for patient's back pain and muscle spasm -Creatinine improved with IV hydration he most likely has underlying chronic renal insufficiency secondary to hypertension, nephrology consult requested. -Continue home meds of Aricept, Norvasc, amiodarone, allopurinol, gabapentin -On heart healthy diet -Disposition: Awaiting STR placement DVT prophylaxis with subcutaneous heparin Patient is full code Problem List: 1. ACUTE RENAL FAILURE 2. Altered mental status Pain Ratin Pain Location: Back pain Pain Goal: Pain 4 or less Pain Plan: Added cyclobenzaprine 5 mg 3 times a day Tomorrow's Labs & Rationales: BEP
[2016-11-17 16:00] VITALS: BP 140/90
--- NOTE | 2016-11-17 17:17 | PN- Att Addend ---
Attending MD Review Statement Attending Statement Attending MD Statement: examined this patient, discuss w/resident/PA/CHUCK WAGON DRIVER, agreed w/resident/PA/CHUCK WAGON DRIVER, reviewed EMR data (avail), discussed w/nursing Attending Assessment/Plan: Laboratory Tests 11/17/16 0622: Anion Gap 10, Estimated GFR 37 L, BUN/Creatinine Ratio 20.6, Vitamin B12 410, TSH 1.110 11/17/16 0550: Urine Opiates Screen 528.00, Methadone Screen 53, Barbiturate Screen < 60, Ur Phencyclidine Scrn < 6.00, Amphetamines Screen < 100, U Benzodiazepines Scrn < 85, Urine Cocaine Screen < 50, Urine Cannabis Screen < 5.00, Urinalysis LIGHT H , Urine Color YEL, Urine Clarity HAZY H, Urine pH 6.0, Ur Specific [place] 1.015, Urine Protein 100 H, Urine Ketones NEG, Urine Nitrite POS H, Urine Bilirubin NEG, Urine Urobilinogen 0.2, Ur Leukocyte Esterase MOD H, Ur Microscopic SEDIMENT EXAMINED, Urine RBC 10-15 H, Urine WBC 25-50 H, Ur Epithelial Cells FEW, Urine Hemoglobin LARGE H, Urine Glucose NEG Vital Signs Date Time Temp Pulse Resp B/P Pulse O2 O2 Flow FiO2 Ox Delivery Rate 11/17 1600 97.9 84 20 140/90 93 11/17 1054 84 132/78 11/17 1054 84 132/78 11/17 0817 98.1 84 20 120/70 94 Room Air 11/17 0000 Room Air 11/16 2333 97.8 80 20 118/68 95 Admitted with bryan on ckd- creatinine improving and is down to 1.8 from 3.5 at admission. Nephrology consult. AMS- improved. BPH- has chronic hoang which is changed every 2 months. COPD stable- not on home home oxygen. Chronic back pain- pt still complaining of pain. Added flexeril for pain as he is having spasms. d/w pt the care plan.
--- NOTE | 2016-11-17 18:17 | Discharge Summary ---
Visit Information Visit Dates Admission Date: 11/13/16 Discharge Date: 11/19/2016 Hospital Course Course Attending Physician: JENI HEDNRICKS M.D Primary Care Physician: CARLOS A REILLY MD Hospital Course: 76-year-old gentleman with a PMH of dementia, COPD not on home oxygen, CKD, paroxysmal A. fib not on anticoagulation, BPH, chronic back pain, chronic indwelling catheter changed Q 2 months, anemia, gout, anxiety, depression, hearing impairment and morbid obesity who was brought in to [place] from his facility due to low oxygen saturation. He did have a visit to [facility] approximately one month ago for nosebleed, discharged to [facility] for 3 weeks and has since been residing at home. The visiting nurse noted a low oxygen saturation in the 80s. No reports of cough, runny nose, shortness of breath or chest pain prior to admission. VS on admission: BP 136/91, HR 101, RR 20, SPO2 93% on RA, T 99.1 Physical exam: Oriented to person and place, patient noted to have dry mucous membranes and thick mucoid saliva requesting water, decreased breath sounds bilaterally, obese abdomen, venous stasis changes in bilateral lower extremities. Pertinent labs: H&H 11.8/77.5, WBC 6.7, BUN/CR 67/3.5, glucose 205 CXR: Moderately enlarged heart. Low lung volumes without definitive infiltrate or pulmonary edema. There is a moderately to markedly dilated air-filled loop of probable colon under the right hemidiaphragm. Abdominal x-ray should be considered. CT abdomen pelvis without contrast: 1. Chilaiditi's syndrome. Dilated transverse colon. No intestinal obstruction. 2. Cholelithiasis without cholecystitis. ( Gallstones too numerous to count). Head CT: No acute intracranial pathology. Patient was admitted to general medicine managed for the following problems: 1. Altered mental status 2. Acute on chronic kidney disease 3. Chest discomfort 4. Paroxysmal atrial fibrillation 5. Chronic back pain 6. Hypertension Hospital course: 1. Altered mental status * Patient is on gabapentin and in the setting of worsening renal function is likely could have conch beaded tip is altered mentation * Gabapentin dose was decreased to 100 mg TID with noticeable improvement in mentation over the next 2 days * We will plan to discharge the patient with instructions to have a repeat renal function follow-up in one week and CC results to his PCP 2. Acute on chronic kidney disease * Patient's baseline creatinine is 1.7. On admission creatinine of 3.5 for which she received fluid hydration with normal saline and resolution of CARISA back to baseline over the next 4 days 3. Chest discomfort * Patient was initially admitted to telemetry for continuous cardiac monitoring * Sinus rhythm, first-degree heart block, with a AK interval of 0.2, HR 88 through 93 bpm * Serial troponins remain negative 4. Paroxysmal atrial fibrillation * Telemetry monitoring unremarkable 5. Chronic back pain * We started on patient on cymbalta 30mg daily, lidocaine patch and votaren gel to back PRN. Patient has a long standing history of narcotic associated hypoxic episodes. We have continued him on his previous dose of gabapentin 300mg TID. Please have BEP done in 1 week to assess renal function for possible dose adjustment of gabapentin. 6. Hypertension * BP and heart rate remained stable throughout hospital course Allergies: Coded Allergies: NO KNOWN ALLERGIES (12/26/15) Disposition Summary Disposition Principal Diagnosis: Acute on chronic kidney injury Additional Diagnosis: Altered mental status Chronic Back pain Discharge Disposition: SNF Discharge Instructions General Discharge Information Code Status: Full Code Patient's Diet: Heart healthy Patient's Activity: As tolerated Follow-Up Instructions/Appts: Please follow-up with the PCP within one week after discharge Please have the following blood work done within one week and sent to PCP: CBC, BEP Please take all medications as directed Medications at Discharge Discharge Medications: Stop taking the following medications: Gabapentin (Neurontin) 100 MG CAPSULE ORAL THREE TIMES DAILY Gabapentin (Gabapentin) 100 MG CAPSULE ORAL THREE TIMES DAILY Qty = 30 Continue taking these medications: Betamethasone Dipropionate/C (Clotrimazole and Betamethasone Dipropionate 0) 1 CRE CRE 1 Application On the skin Comments: NOT USED WHILE IN HOSPITAL Nystatin (Nystatin) 15 GM CREAM..G. 1 Application On the skin THREE TIMES DAILY as needed for rash Qty = 1 Acetaminophen (Acetaminophen) 500 MG TABLET 1,000 Milligram ORAL THREE TIMES DAILY Qty = 30 Tramadol HCl (Tramadol HCl) 50 MG TABLET 50 Milligram ORAL Every 4 hours as needed for PAIN SCALE 7-10 (SEVERE) Qty = 30 Allopurinol (Allopurinol) 100 MG TABLET 1 Tablet ORAL DAILY Amiodarone HCl (Amiodarone HCl) 200 MG TABLET 1 Tablet ORAL DAILY Amlodipine Besylate (Amlodipine Besylate) 5 MG TABLET 1 Tablet ORAL DAILY Calcium Acetate (Calcium Acetate) 667 MG CAPSULE 1 Capsule ORAL THREE TIMES DAILY Donepezil HCl (Donepezil HCl) 10 MG TABLET 1 Tablet ORAL DAILY Ergocalciferol (Vitamin D2) (Vitamin D2) 50,000 UNIT CAPSULE 1 Capsule ORAL EVERY Start taking the following new medications: Duloxetine Hydrochloride (Cymbalta) 30 MG CAPSULE.DR 30 Milligram ORAL DAILY Qty = 30 No Refills Lidocaine (Lidoderm) 5 % ADH..PATCH 1 Patch ON SKIN DAILY Qty = 30 No Refills Instructions: apply 12 hours on and 12 hours off Gabapentin (Gabapentin) 300 MG CAPSULE 1 Capsule ORAL THREE TIMES DAILY Qty = 90 No Refills Diclofenac Sodium (Voltaren) 1 % GEL..GRAM. 1 Gram On the skin 4 TIMES A DAY as needed for CHronic back pain Qty = 1 No Refills Instructions: apply to back areas alternating with lidocaine Copies To: ILEANA TEAGUE,NOLAN Chavez Attending MD Review Statement Documenting Attending: LIZETH CAMACHO MD Other Findings: Agree with the above discharge plan.
--- NOTE | 2016-11-17 18:23 | Patient Discharge Instructions ---
Discharge Instructions General Discharge Information You were seen/treated for: Low oxygen saturation. Worsening kidney function. Watch for these problems: Decreased urine output. Confusion, difficulty breathing, cough, fevers or chills. Special Instructions: Please take all medications as directed. Please follow-up with her PCP within one week after discharge. Diet Continue normal diet: No Recommended Diet: Heart Healthy Activity Activity Self Limited: Yes Acute Coronary Syndrome Inclusion Criteria At DC or during hospital stay patient has or had the following: ACS DIAGNOSIS No Discharge Core Measures Meds if any: Prescribed or Continued at Discharge Meds if any: NOT Prescribed or Continued at Discharge Congestive Heart Failure Inclusion Criteria At DC or during hospital stay patient has or had the following: CHF DIAGNOSIS No Discharge Core Measures Meds if any: Prescribed or Continued at Discharge Meds if any: NOT Prescribed or Continued at Discharge Cerebrovascular accident Inclusion Criteria At DC or during hospital stay patient has or had the following: CVA/TIA Diagnosis No Discharge Core Measures Meds if any: Prescribed or Continued at Discharge Meds if any: NOT Prescribed or Continued at Discharge Venous thromboembolism Inclusion Criteria VTE Diagnosis No VTE Type NONE VTE Confirmed by (Test) NONE Discharge Core Measures - Per Current guidelines, there needs to be overlap - treatment for the first 5 days of Warfarin therapy. - If discharged on Warfarin prior to 5 days of - overlap therapy, the patient will need to be - assessed for post discharge needs including - *Post discharge parental anticoagulation - *Warfarin and/or parental anticoagulation education - *Follow up date to check INR post discharge At least 5 days overlap therapy as Inpatient No Meds if any: Prescribed or Continued at Discharge Note: Overlap Therapy is Warfarin and Anticoagulant Meds if any: NOT Prescribed or Continued at Discharge
[2016-11-18 07:10] VITALS: BP 140/80
--- NOTE | 2016-11-18 08:49 | PN- Housestaff ---
Subjective Follow-up For: Altered Mental status Subjective: Patient seen and examined at bedside. Patient is still endorsing back pain which she describes as muscle spasm and notes that he has a history of this problem. He does not endorse any other acute complaints including chest pain, palpitation, fever, chills, nausea, vomiting, abdominal pain or dysuria. Patient mentation is noted to have significantly improved and is alert oriented and is able to sustain a logical conversation Review of Systems Constitutional: Reports: see HPI. Objective Last 24 Hrs of Vital Signs/I&O Vital Signs Date Time Temp Pulse Resp B/P Pulse O2 O2 Flow FiO2 Ox Delivery Rate 11/18 1636 98.0 81 20 146/90 96 11/18 1503 Room Air 2.0L 11/18 0805 73 138/88 11/18 0805 73 138/88 11/18 0710 97.6 73 21 140/80 96 Room Air Intake & Output 11/18 1600 11/18 0800 11/18 0000 Intake Total 400 880 Output Total 1000 1700 2703 Balance -1000 -1300 -1823 Intake, IV 400 400 Intake, Oral 480 Number 4 Bowel Movements Output, Stool 3 Output, Urine 1000 1700 2700 Patient 136.078 kg Weight Physical Exam General Appearance: Alert, Oriented X3, Cooperative, obese Other Physical Findings: Skin: No Significant Lesion Neck: Supple Cardiovascular: Regular Rate, Normal S1, Normal S2 Lungs: Clear to Auscultation, Normal Air Movement Abdomen: Normal Bowel Sounds, Soft, No Tenderness Neurological: Normal Tone, Sensation Intact Current Medications: Current Medications Sig/Frandy Start time Last Medication Dose Route Stop Time Status Admin Acetaminophen 1,000 MG .STK-MED ONE 11/18 0108 DC IV 11/18 0109 Acetaminophen 650 MG Q6P PRN 11/13 2100 AC PO Acetaminophen 1,000 MG Q6P PRN 11/13 2100 AC 11/18 IV 0805 Allopurinol 100 MG DAILY 11/14 1000 AC 11/18 PO 0804 Amiodarone HCl 200 MG DAILY 11/14 1000 AC 11/18 PO 0805 Amlodipine Besylate 5 MG DAILY 11/14 1000 AC 11/18 PO 0805 Calcium Acetate 667 MG TID 11/13 2200 AC 11/18 PO 1606 Cyclobenzaprine HCl 5 MG TID 11/17 1148 AC 11/18 PO 1606 Donepezil HCl 10 MG DAILY 11/14 1000 AC 11/18 PO 0804 Ergocalciferol 50,000 IU We 11/19 1800 AC PO Gabapentin 100 MG TID 11/13 2199 AC 11/18 PO 1606 Heparin Sodium 5,000 UNIT Q8 11/13 220 AC 11/18 (Porcine) SC 1323 Nystatin 1 YOCASTA TID PRN 11/13 220 DC 11/17 TOP 1054 Sodium Chloride 1,000 ML Q20H 11/17 0345 DC 11/17 IV 11/17 2344 1448 Tramadol HCl 50 MG Q6 PRN 11/13 2100 AC 11/18 PO 1432 Last 24 Hrs of Lab/Aurelio Results Last 24 Hrs of Labs/Mics: Laboratory Tests 11/18/16 0605: Anion Gap 9, Estimated GFR 37 L, BUN/Creatinine Ratio 18.3 Assessment/Plan Assessment: 76 year old morbidly obese gentleman with past medical history of Dementia, COPD not on oxygen, CKD, Paroxymal A.fib not on anticoagulation, BPH with chronic indwelling hoang,changed about 2 months ago with past urine cultures growing Escherichia coli, ESBL, chronic anemia, gout, anxiety and depression, BIBA for low Oxygen saturation. Currently saturating low 90s on room air. No overnight events noted on telemetry. Continues to be easily agitated. 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 Dilated transverse colon, no intestinal obstruction and Cholelithiasis without cholecystitis. Problem list: Back pain with muscle spasm Altered mental status: Significantly improved and resolving. Hypoxia-resolved COPD Hypertension Acute on chronic kidney disease Indwelling Hoang catheter Chronic anemia Dementia Gout Chilaiditi's syndrome Plan: -We'll start cyclobenzaprine 5 mg 3 times a day for patient's back pain and muscle spasm -Creatinine improved with IV hydration, he most likely has underlying chronic renal insufficiency secondary to hypertension, nephrology consult requested. Regarding his back pain, personally called Dr. Iraheta office to verify his pain regimen verified that patient should be on gabapentin 300 mg 3 times a day and tramadol 50 mg every 50mg q 4. -Continue home meds of Aricept, Norvasc, amiodarone, allopurinol, gabapentin -On heart healthy diet -Disposition: Awaiting STR placement DVT prophylaxis with subcutaneous heparin Patient is full code Problem List: 1. Altered mental status Pain Ratin Pain Location: Back pain Pain Goal: Pain 4 or less Pain Plan: Tramadol for moderate pain Cyclobenzaprine 5 mg 3 times a day for spasmic pain Tomorrow's Labs & Rationales: None-pt scheduled for discharge
[2016-11-18] MEDS ORDERED: GABAPENTIN300 M2 PO (13:39)
--- NOTE | 2016-11-18 14:50 | PN- Att Addend ---
Attending MD Review Statement Attending Statement Attending MD Statement: examined this patient, discuss w/resident/PA/RN TESTING, agreed w/resident/PA/RN TESTING, reviewed EMR data (avail), discussed w/nursing, discussed w/ case mgmt Attending Assessment/Plan: Laboratory Tests 11/18/16 0605: Anion Gap 9, Estimated GFR 37 L, BUN/Creatinine Ratio 18.3 Vital Signs Date Time Temp Pulse Resp B/P Pulse O2 O2 Flow FiO2 Ox Delivery Rate 11/18 0805 73 138/88 11/18 0805 73 138/88 11/18 0710 97.6 73 21 140/80 96 Room Air 11/17 1600 97.9 84 20 140/90 93 A/P bryan on ckd- creatinine improving and is down to 1.8 from 3.5 at admission. Nephrology consult appreciated. Stable from DC from there standpoint.. AMS- improved. BPH- has chronic hoang COPD stable- not on home home oxygen. Chronic back pain- pt still complaining of pain. Added flexeril for pain as he is having spasms but is not helping. d/w pt the care plan.
[2016-11-18 16:36] VITALS: BP 146/90
[2016-11-19 00:04] VITALS: BP 150/90
[2016-11-19 07:59] VITALS: BP 132/78
--- NOTE | 2016-11-19 08:09 | PN- Housestaff ---
JOHNNY TEAGUE,LAKESHA 11/19/16 0809: Subjective Follow-up For: Altered Mental status Subjective: Patient is seen and examined at bedside. Patient still endorses back pain and states that he feels that it is not controlled. He however does not endorse any chest pain, palpitation, shortness of breath, fever, chills, nausea, vomiting or abdominal pain. No acute overnight event reported by nursing staff. Review of Systems Constitutional: Reports: see HPI. Objective Last 24 Hrs of Vital Signs/I&O Vital Signs Date Time Temp Pulse Resp B/P Pulse O2 O2 Flow FiO2 Ox Delivery Rate 11/19 1339 97.1 72 20 132/78 11/19 0800 97.1 20 95 Room Air 11/19 0759 72 132/78 11/19 0004 97.9 77 20 150/90 94 Room Air 11/19 0000 Room Air 11/18 1636 98.0 81 20 146/90 96 Intake & Output 11/19 1600 11/19 0800 11/19 0000 Intake Total 422 440 4647 Output Total 1100 600 975 Balance -190 -280 225 Intake, IV 10 Intake, Oral 899 843 6207 Number 1 2 Bowel Movements Output, Urine 1100 600 975 Physical Exam General Appearance: Alert, Oriented X3, Cooperative Other Physical Findings: Skin: No Significant Lesion Neck: Supple Cardiovascular: Regular Rate, Normal S1, Normal S2 Lungs: Clear to Auscultation, Normal Air Movement Abdomen: Normal Bowel Sounds, Soft, No Tenderness Neurological: Normal Tone, Sensation Intact Current Medications: Current Medications Sig/Frandy Start time Last Medication Dose Route Stop Time Status Admin Acetaminophen 650 MG Q6P PRN 11/13 2100 AC PO Acetaminophen 1,000 MG Q6P PRN 11/13 2100 AC 11/18 IV 2213 Allopurinol 100 MG DAILY 11/14 1000 AC 11/19 PO 0755 Amiodarone HCl 200 MG DAILY 11/14 1000 AC 11/19 PO 0754 Amlodipine Besylate 5 MG DAILY 11/14 1000 AC 11/19 PO 0755 Calcium Acetate 667 MG TID 11/13 2200 AC 11/19 PO 0755 Cyclobenzaprine HCl 5 MG TID 11/17 1148 AC 11/19 PO 0755 Diclofenac Sodium 1 YOCASTA 4 TIMES/DAY 11/19 1030 AC 11/19 TOP 1218 Donepezil HCl 10 MG DAILY 11/14 1000 AC 11/19 PO 0755 Duloxetine HCl 30 MG DAILY 11/19 1045 AC 11/19 PO 1218 Ergocalciferol 50,000 IU We 11/19 1800 AC PO Gabapentin 100 MG TID 11/13 2200 AC 11/19 PO 0755 Heparin Sodium 5,000 UNIT Q8 11/13 2200 AC 11/19 (Porcine) SC 1402 Lidocaine 1 PAT DAILY 11/19 1030 AC 11/19 EXT 1218 Patient Medication 1 ED .STK-MED ONE 11/19 1332 DC Teaching ED 11/19 1333 Tramadol HCl 25 MG ONCE ONE 11/19 0730 DC 11/19 PO 11/19 0731 0755 Tramadol HCl 50 MG Q6 PRN 11/13 2100 AC 11/19 PO 0253 Assessment/Plan Assessment: 76 year old morbidly obese gentleman with past medical history of Dementia, COPD not on oxygen, CKD, Paroxymal A.fib not on anticoagulation, BPH with chronic indwelling hoang,changed about 2 months ago with past urine cultures growing Escherichia coli, ESBL, chronic anemia, gout, anxiety and depression, BIBA for low Oxygen saturation. Currently saturating low 90s on room air. No overnight events noted on telemetry. Continues to be easily agitated. 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 Dilated transverse colon, no intestinal obstruction and Cholelithiasis without cholecystitis. Problem list: Back pain with muscle spasm Altered mental status: Significantly improved and resolving. Hypoxia-resolved COPD Hypertension Acute on chronic kidney disease Indwelling Hoang catheter Chronic anemia Dementia Gout Chilaiditi's syndrome Plan: -We'll add Lidoderm patch, ALternaGEL, to tramadol 50 every 4 and gabapentin to adequately address patient's chronic back pain and spasm. -Creatinine improved with IV hydration, he most likely has underlying chronic renal insufficiency secondary to hypertension, nephrology consult requested. Regarding his back pain, personally called Dr. Iraheta office to verify his pain regimen verified that patient should be on gabapentin 300 mg 3 times a day and tramadol 50 mg every 50mg q 4. -Continue home meds of Aricept, Norvasc, amiodarone, allopurinol, gabapentin -On heart healthy diet -Disposition: Awaiting STR placement DVT prophylaxis with subcutaneous heparin Patient is full code Problem List: 1. Altered mental status Pain Ratin Pain Location: Back pain Pain Goal: Pain 4 or less Pain Plan: Will add Lidoderm and duloxetine Tomorrow's Labs & Rationales: NONE-DISCHARGE HAZEL TEAGUE,MARK 11/19/16 1334: Attending MD Review Statement Attending Statement Attending MD Statement: examined this patient, discuss w/resident/PA/WELCOME CENTER ATTENDANT, agreed w/resident/PA/WELCOME CENTER ATTENDANT, reviewed EMR data (avail), discussed with nursing Attending Assessment/Plan: Patient appears slightly drowsy. He is complaining of severe back pain and is currently unhappy with his pain management. He was not able to sleep well at night because of pain issues. He otherwise denies any recent fever chills or chest pains. On exam he is obese male who has clear chest. He has obese abdomen with normal bowel sounds. No new areas were done today. Assessment plan * Acute renal failure now resolved * Acute change in mental status improved * History of COPD on home oxygen * Chronic back pain * Morbid obesity Plan I reviewed his pain management. As per wishes of his primary care physician Aldair Iraheta MD and past history of multiple episodes of respiratory depression related to narcotics, I would not prescribe narcotics for this patient. Given his renal insufficiency, he is currently maxed out on his Ultram. Patient does not wish to take Tylenol. We will start lidocaine patch, back massage, heat pad. Consider Cymbalta. Patient may benefit from therapeutic touch and Reiki.
[2016-11-19 13:39] VITALS: BP 132/78
[2016-11-19] MEDS ORDERED: LIDODERM1 EACH EXT (14:02)
[2016-11-19] MEDS ORDERED: CYMBALTA30 M1 PO (14:03)
[2016-11-19] MEDS ORDERED: GABAPENTIN300 M2 PO (14:07)
[2016-11-19] MEDS ORDERED: VOLTAREN100 GM TOP (16:25)
[2016-11-19 17:11] VITALS: BP 132/78
[2016-11-19 17:16] VITALS: BP 138/78
[2017-01-28] MEDS ORDERED: LOMOTIL 2.5-0.1 EACH PO (10:44)
[2017-01-28] MEDS ORDERED: LEXAPRO20 M1 PO (10:45)
[2017-03-11] MEDS ORDERED: TYLENOL PO (11:33)
[2017-03-11] MEDS ORDERED: GABAPENTIN100 M2 PO (11:33)
[2017-03-11] MEDS ORDERED: LOPERAMIDE2 M2 PO (11:34)
[2017-03-11] MEDS ORDERED: ZOLOFT25 M1 PO (11:34)
== END 2016-11-19 17:50 | DRG 683 ==
LOC: ENRESERVDT → ENRESERVTM → ERH 12:13 → 2NB 16:53 → ENPENDDIS 16:53 → 2NB 16:53 → 1NO 16:53 → ERHI 16:53 → 1NO 18:39 → 2NB 11-15 22:43
PROVIDERS: Physician Assistant; Preventive Medicine Public Health & General Preventive Medicine; Student in an Organized Health Care Education/Training Program; ADMIT Internal Medicine
DX: N17.9 Acute kidney failure, unspecified (principal); I13.0 Hypertensive heart and chronic kidney disease with heart failure and stage 1 through stage 4 chronic kidney disease, or unspecified chronic kidney disease; I50.32 Chronic diastolic (congestive) heart failure; Q43.3 Congenital malformations of intestinal fixation; F03.90 Unspecified dementia, unspecified severity, without behavioral disturbance, psychotic disturbance, mood disturbance, and anxiety; I48.0 Paroxysmal atrial fibrillation; E66.01 Morbid (severe) obesity due to excess calories; R41.0 Disorientation, unspecified; J44.9 Chronic obstructive pulmonary disease, unspecified; N40.0 Benign prostatic hyperplasia without lower urinary tract symptoms; D53.9 Nutritional anemia, unspecified; M10.9 Gout, unspecified; F41.8 Other specified anxiety disorders; N18.3 Chronic kidney disease, stage 3 (moderate)
CPT/HCPCS: 1NP; 36415; 74176; 80307; 81001; 82436; 87040; 87086; 93005; 93010; 96374; 97110-GO; 97116-GO; 97161-GP; 97530-GO; J0131; J1644; J2930

== ENCOUNTER 2016-11-29 21:49 | Emergency (ER) | payer OTHER ==
[~2016-11-29 21:49] MED LIST changes: +ALLOPURINOL100 M1 PO; +AMIODARONE HCL200 M1 PO; +AMLODIPINE BESYL5 M1 PO; +CALCIUM ACETAT667 M3 PO; +CYMBALTA30 M1 PO; +DONEPEZIL HCL10 M1 PO; +GABAPENTIN300 M2 PO; +LASIX20 M1 PO; +LIDODERM1 EACH EXT; +VITAMIN D250000 UNIT PO; +VOLTAREN100 GM TOP
--- NOTE | 2016-11-29 22:03 | ED GENERAL ADULT ---
History of Present Illness General Chief Complaint: Psychiatric Related Complaint Stated Complaint: BIBA FROM SNF FOR +SI Source: patient, old records, EMS Exam Limitations: no limitations Vital Signs & Intake/Output Vital Signs & Intake/Output Vital Signs Date Time Temp Pulse Resp B/P Pulse O2 O2 Flow FiO2 Ox Delivery Rate 11/30 0756 98.5 68 18 139/66 95 Room Air / 0624 97.6 69 20 184/92 93 Room Air 11/30 0150 99.3 76 18 124/68 94 Room Air 11/29 2236 Room Air 11/29 2200 96.4 75 20 146/94 94 Room Air ED Intake and Output 11/30 0000 11/29 1200 Intake Total 0 Output Total Balance 0 Intake, Oral 0 Allergies Coded Allergies: NO KNOWN ALLERGIES (12/26/15) Triage Note: BIBA FROM [facility] FOR +SI. PER EMS, PT GOT INTO FIGHT WITH NURSE FROM [facility] AND THEN WRAPPED A CORD AROUND HIS NECK. UPON ARRIVAL PT ALERT AND PLEASANT. COOPERATIVE. Triage Nurses Notes Reviewed? yes HPI: Patient went to an argument with his nurse at the [facility] about his pain medication. Nurse states that then the patient stated that he might as well kill self and then he wrapped his hearing aid cord his neck. Patient states that the nurse stated that she wished he would just so that he wrapped his cord around his neck in a joke-like like fashion. Patient denies any suicidal or homicidal ideations. Patient denies any hallucinations. Patient sent to the emergency department for evaluation. (LUIS TEAGUE,DAVID Pinto) Reconcile Medications Acetaminophen 500 MG TABLET 1,000 MG PO TID back pain Allopurinol 100 MG TABLET 1 TAB PO DAILY Gout (Reported) Amiodarone HCl 200 MG TABLET 1 TAB PO DAILY afib (Reported) Amlodipine Besylate 5 MG TABLET 1 TAB PO DAILY HTN (Reported) Betamethasone Dipropionate/C (Clotrimazole and Betamethasone Dipropionate 0) 1 CRE CRE 1 YOCASTA TOP UNKNOWN (Reported) Calcium Acetate 667 MG CAPSULE 1 CAP PO TID CALCIUM SUPPLEMENT (Reported) Diclofenac Sodium (Voltaren) 1 % GEL..GRAM. 1 GM TOP 4 TIMES/DAY PRN CHronic back pain apply to back areas alternating with lidocaine Donepezil HCl 10 MG TABLET 1 TAB PO DAILY DEMENTIA (Reported) Duloxetine Hydrochloride (Cymbalta) 30 MG CAPSULE.DR 30 MG PO DAILY neuropathic pain Ergocalciferol (Vitamin D2) (Vitamin D2) 50,000 UNIT CAPSULE 1 CAP PO EVERY Calcium Supplementation (Reported) Furosemide (Lasix) 20 MG TABLET 1 TAB PO DAILY EDEMA (Reported) Gabapentin 300 MG CAPSULE 1 CAP PO TID NEUROPATHIC PAIN Lidocaine (Lidoderm) 5 % ADH..PATCH 1 PAT EXT DAILY back pain apply 12 hours on and 12 hours off Nystatin 15 GM CREAM..G. 1 YOCASTA TOP TID PRN rash Tramadol HCl 50 MG TABLET 50 MG PO Q4 PRN PAIN SCALE 7-10 (SEVERE) (NUVIA MENJIVAR MD) Past History Travel History Traveled to [place] past 21 day No Medical History Any Pertinent Medical History? 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 History of MRSA: Yes History of VRE: Yes History of CDIFF: No Influenza Vaccine: 09/28/16 Surgical History Surgical History: none, . Psychosocial History Who do you live with Spouse Services at Home Nursing What is your primary language Macanese Tobacco Use: Never used ETOH Use: denies use Family History Family History, If Any: BROTHER (Brain tumor). FATHER Relation not specified for: FH: hypertension Hx Contributory? No (LUIS TEAGUE,DAVID Pinto) Review of Systems Review of Systems Constitutional: Reports: no symptoms. Respiratory: Reports: no symptoms. Cardiovascular: Reports: no symptoms. Musculoskeletal: Reports: see HPI, back pain. Immunologic/Allergic: Reports: no symptoms. (LUIS TEAGUE,DAVID Pinto) Physical Exam Physical Exam General Appearance: well developed/nourished, alert, awake Head: atraumatic Eyes: Bilateral: PERRL, EOMI. Neck: normal inspection Respiratory: normal breath sounds, chest non-tender, no respiratory distress, lungs clear Cardiovascular: regular rate/rhythm, normal peripheral pulses Neurologic/Psych: no motor/sensory deficits, awake, alert, oriented x 3, normal mood/affect Core Measures ACS in differential dx? No CVA/TIA Diagnosis: No Severe Sepsis Present: No Septic Shock Present: No (LUIS TEAGUE,DAVID Pinto) Progress Differential Diagnoses I considered the following diagnoses in my evaluation of the patient: [Suicidal ideation, episodic outburst] Plan of Care: Orders Procedure Date/time Status Regular Diet 11/30 B Active Continuous Observation Monitor 12/01 727 Active Continuous Observation Monitor 11/29 2201 Active URINE DRUG SCREEN FOR ER ONLY 11/29 2201 Complete ETHANOL 11/29 2201 Complete COMPREHENSIVE METABOLIC PANEL 11/29 2201 Complete CBC WITHOUT DIFFERENTIAL 11/29 2201 Complete ED CRISIS PSYCH CONSULT 11/29 2201 Active Laboratory Tests 11/29/16 2340: Anion Gap 10, Estimated GFR 35 L, BUN/Creatinine Ratio 24.7, Glucose 100 H, Calcium 8.5, Total Bilirubin 0.3, AST 17, ALT 21, Alkaline Phosphatase 86, Total Protein 6.3, Albumin 3.3 L, Globulin 3.0, Albumin/Globulin Ratio 1.1, CBC w Diff NO MAN DIFF REQ, RBC 3.69 L, MCV 82.2, MCH 26.4 L, RDW 17.4 H, MPV 8.7, Gran % 68.0, Lymphocytes % 20.1 L, Monocytes % 6.4, Eosinophils % 4.6, Basophils % 0.9, Absolute Granulocytes 3.1, Absolute Lymphocytes 0.9 L, Absolute Monocytes 0.3, Absolute Eosinophils 0.2, Absolute Basophils 0, PUBS MCHC 32.2 L, Serum Alcohol < 10.0 11/29/16 2220: Urine Opiates Screen 561.00, Methadone Screen 78, Barbiturate Screen < 60, Ur Phencyclidine Scrn 8.00, Amphetamines Screen 120, U Benzodiazepines Scrn < 85, Urine Cocaine Screen < 50, Urine Cannabis Screen < 5.00 Initial ED EKG: none Hand-Off Endorsed To: NUVIA MENJIVAR MD Endorsed Time: 0700 Pending: consult (CRISIS) Comments: Patient has been seen and evaluated by band log mill and carriage operator. I recommend him to stay in the emergency department overnight and then be very involved the morning. (DAVID SMITH MD) Comments: cleared by psychiatry for discharge (NUVIA MENJIVAR MD) Departure Departure Condition: Stable Clinical Impression Primary Impression: Depression Referrals: CARLOS A REILLY MD (PCP/Family) (DAVID SMITH MD) Departure Time of Disposition: 1134 Disposition: HOME OR SELF CARE Departure Forms: General Discharge Information (NUVIA MENJIVAR MD) Critical Care Note Critical Care Note Critical Care Time: non-applicable (DAVID SMITH MD)
--- NOTE | 2016-11-29 23:22 | ED PSYCH CRISIS CONSULTATION ---
Crisis Consult Basic Assessment Date of Consult: 11/29/16 Responsible Person/Accompanied By: Self/Shira Insurance Authorization: Insurance #1: Insurance name: ANGELITA VAZQUEZ HMO Phone number: Policy number: [id number] Group number: Authorization number: ED Provider: Patient's ED Provider: LUIS TEAGUE,DAVID Pinto Primary Care Physician: Patient's PCP: CARLOS A REILLY MD PCP's Current Psychiatrist: Juju Little MD Chief Complaint: Psychiatric Related Complaint Patient's Quote: "She controls my pain" Present Illness: Pt is a 76 year old male BIBA from [facility]. Pt was seen by a nurse at the facility with a wire around his neck. The nurse believed the pt was attempting to strangle himself. Pt states "I was trying to scare her" "No I did not want to kill myself". "I have too many things to do". Pt was alert, and talkative. "Why are you asking me all these questions". He did not know the date and time and was not able to read the date on the board in front of him. "I can't read I only got up to kindergarten". Pt's was present during the interview and confirmed that the pt is illiterate. Further, as this clinician asked the pt questions about his mental status and whether he takes medications for mental illness, he became very upset and responded "why are you asking me all these questions". Both the pt and his denies a history of inpatient or outpatient mental health treatment. Pt does not taking any medications for mental illness. Mrs. Paulino states the pt has been at [facility] for approximately 2 weeks and has a planned discharge from the facility for Thursday12/03/16. He was admitted to [facility] for rehabilitation following an episode of nose bleeds and low oxygen. According to the pt's report he is treated well at [facility] "they are good to me there". Consultation with Dr. Little she believes that the pt's judgment is impaired, and he is unable to be reasonable at this time. "He is not in his right mind". The pt has a diagnosis of Dementia, per Dr. Little symptoms of Dementia worsens at night. Also, because the pt is unable to ambulate we need him to be medically cleared (amount of medication in his system) to ensure that the pt is not at risk for respiratory failure. Pt is a H/O and reevaluate in the morning. Patient's Address: [place] [address] Other Phone Number: Who Do You Live With? Family Family/Informants Interviewed: Face to face interview with Shira Paulino . Mrs. Paulino states the pt does not have a history of attempting suicide. He does not have a mental health history. Allergies - Coded Allergies: NO KNOWN ALLERGIES (12/26/15) Laboratory Results: Laboratory Tests 11/29/16 2220: Urine Opiates Screen 561.00, Methadone Screen 78, Barbiturate Screen < 60, Ur Phencyclidine Scrn 8.00, Amphetamines Screen 120, U Benzodiazepines Scrn < 85, Urine Cocaine Screen < 50, Urine Cannabis Screen < 5.00 (JONY GARCIA LCSW) Current Medications - Scheduled Medications Acetaminophen 500 MG TABLET 1,000 MG PO TID back pain #30 Prescribed by ALMITA KELLY on 07/04/16 Allopurinol 100 MG TABLET 1 TAB PO DAILY Gout (Reported) Entered as Reported by RADHA ARORA on 11/14/161133 Last Taken: 11/29/16 Amiodarone HCl 200 MG TABLET 1 TAB PO DAILY afib (Reported) Entered as Reported by RADHA ARORA on 11/14/16 113 Last Taken: 11/29/16 Amlodipine Besylate 5 MG TABLET 1 TAB PO DAILY HTN (Reported) Entered as Reported by RADHA ARORA on 11/14/161134 Last Taken: 11/29/16 Calcium Acetate 667 MG CAPSULE 1 CAP PO TID CALCIUM SUPPLEMENT (Reported) Entered as Reported by RADHA ARORA on 11/14/16 113 Last Taken: 11/29/16 Donepezil HCl 10 MG TABLET 1 TAB PO DAILY DEMENTIA (Reported) Entered as Reported by RADHA ARORA on 11/14/16 113 Last Taken: 11/29/16 Duloxetine Hydrochloride (Cymbalta) 30 MG CAPSULE. 30 MG PO DAILY neuropathic pain #30 TAB Prescribed by LAKESHA TURNER MD on 11/19/16 Ergocalciferol (Vitamin D2) (Vitamin D2) 50,000 UNIT CAPSULE 1 CAP PO EVERY Calcium Supplementation (Reported) Entered as Reported by RADHA ARORA on 11/14/16 1139 Furosemide (Lasix) 20 MG TABLET 1 TAB PO DAILY EDEMA (Reported) Entered as Reported by AMMON ANDREW on 11/30/16 0212 Gabapentin 300 MG CAPSULE 1 CAP PO TID NEUROPATHIC PAIN #90 CAP Prescribed by LAKESHA TURNER MD on 11/19/16 Last Taken: 11/29/16 Lidocaine (Lidoderm) 5 % ADH..PATCH 1 PAT EXT DAILY back pain #30 PACKET Prescribed by LAKESHA TURNER MD on 11/19/16 Scheduled PRN Medications Diclofenac Sodium (Voltaren) 1 % GEL..GRAM. 1 GM TOP 4 TIMES/DAY PRN CHronic back pain #1 TUBE Prescribed by LORA LYONS on 11/19/16 Nystatin 15 GM CREAM..G. 1 YOCASTA TOP TID PRN rash #1 Prescribed by ALMITA KELLY on 07/03/16 Tramadol HCl 50 MG TABLET 50 MG PO Q4 PRN PAIN SCALE 7-10 (SEVERE) #30 Prescribed by ALMITA KELLY on 07/04/16 Last Taken: 11/29/16 Miscellaneous Medications Betamethasone Dipropionate/C (Clotrimazole and Betamethasone Dipropionate 0) 1 CRE CRE 1 YOCASTA TOP UNKNOWN (Reported) Entered as Reported by BECKIE HASSAN on 12/26/15 1249 (OLGA MARKS) Addendum Addendum 11/30/16 Crisis Reassessment Reviewed crisis evaluation completed on 11/29/16 and met with the pt. During this assessment the pt presents alert, oriented, pleasant and cooperative with goal directed speech. The pt made good eye contact and relied on a sound amplification device for hearing. The pt denies SI, HI, AH and VH. The pt reports he sleeps well and has a good appetite. The pt stated he loves his and they have a good relationship. The pt is requesting discharge back to the nursing facility and stated he is scheduled to be discharged home on 12/02 or . The pt reports he has arthritis pain and requested pain medication from a nurse 4-5 times. The pt stated the nurse avoided him and did not provide his pain medication. The pt reports an aide also asked the nurse to provide the pain medication and the nurse still did not respond. The pt stated he then asked the aide for a wire but did not explain the reason for his request. The pt identified he was given a cord (unknown type of cord) and he wrapped it around his neck. The pt denies it was tight enough to harm him and stated the only purpose was to have his nurse come to his room. The pt presents as future oriented and stated he has to have a new roof put on his house and and some plumbing repaired. The pt stated the staff at the nursing facility treat him well except for the one nurse assigned to him yesterday. Addressed with the pt Dr. Little will assess him to determine disposition. T/C to [facility] ([phone]), spoke with Aurea Bernarddavide DEAN who stated she gave the pt his scheduled Tylenol yesterday and then the pt called on the phone from his room stating no one has given him his medication. Ms. Silva stated she does not believe the pt forgot he was given his Tylenol and his usual behavior is to repeatedly ask for his medication. The pt is scheduled for Tylenol and has Tramadol prn. Ms. Silva stated the pt wrapped a pulse ox cord around his neck and then wrapped it around the railing of his bed using the railing as a natalie. Ms. Silva stated the pt pulled on the cord to apply pressure around his neck. Ms. Silva stated the cord had to constantly be pulled to maintain the pressure. Ms. Silva and another staff intervened and removed the cord from the pts neck. Ms. Silva reports the pt has not had any other self harm behaviors while at their facility. Addressed Dr. Little will assess the pt to determine disposition. 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 Psychosocial History Strengths/Capabilities: Very supportive ( 51 years). Pt states he has had a good experience at [facility]. Physical Limitations (Interventions): Ambulation difficulties Unable to complete ADLs Psychiatric Treatment History Psych Treatment Psychiatric Treatment No Inpatient Treatment No Outpatient Treatment No Location of Treatment n/a Reason for Treatment n/a Dates of Treatment n/a Response to Treatment n/a Diagnosis by History: n/a Substance Use/Abuse History Drug Use/Abuse Substances Used/Abused No First Use n/a Last Used n/a How much used/taken n/a How often n/a For how long n/a Route of use n/a Substance Abuse Treatment Substance Abuse Treatment Past Substance Abuse [place] No Inpatient Treatment No Outpatient Treatment No Location of Treatment n/a Reason for Treatment n/a Dates of Treatment n/a Response to Treatment n/a (JONY GARCIA LCSW) Current Mental Status Mental Status Orientation: Current situation Affect: Anxious Speech: Mumbled, Pressured Neuro-vegetative: Concentration Poor, Helpless Appearance Appearance- Dress/Hygiene: Pt is obese, poor hygiene, wearing a hearing aide. Behaviors Thought Process: Disorganized Thought Content: Somatic Memory: Impaired Insight: Poor SI/HI Risk Assessment Past Suicidal Ideation/Attempts No Current Suicidal Ideation/Att No (wrap wire around neck 3/4 snf.) Past Homicidal Ideation/Att: No Current Homicidal Ideation/Attempts No Degree of Intent: None (Passive aggressive behavior), Self Destructive/No , While at SNF pt wrap wire around neck for attention. Danger To: Self Gravely Disabled: Inability, Lack of Insight, Poor Impulse Control, Poor Judgment Risk Factors: age (under 24/over 65), chronic/serious med cond., high anxiety/ distress, poor impulse control, male Lethality Ratin PTSD Checklist PTSD Done? 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 Current GAF: 25 (JONY GARCIA LCSW) Departure Disposition Psych Medical Clearance Date: 11/29/16 Medically Cleared at: 1020 Time Started: 1020 Time Ended: 1051 Psychiatrist Consulted: Juju Little MD Date Disposition Established: 11/29/16 Time Disposition Established: 105 Plan for Disposition - Modality: Hold Over and reevaluate Facility: [facility] Follow-up Appt Date: 11/30/16 Follow-Up Appt Time: 0800 Contact: Crisis Telephone: [phone] Rationale for Disposition: Pt acted implusively and evidenced poor judgment. Pt physically wrapped a wire around his neck in order to obtain more pain medication from the nurse at the nursing facility. Pt demonstated impaired judgment and inability to reason. Dr. Little wants the pt to be held overnight in the ED and reevaluated in the morning. Referrals TOMMIE TEAGUE,CARLOS A Andersen (PCP/Family) (JOSE KING,JONY)
[2016-11-30] LABS: ABSOLUTE BASOPHIL COUNT 0 /CUMM (0.0-0.2); ABSOLUTE EOSINOPHIL COUNT 0.2 /CUMM (0.0-0.7); ABSOLUTE GRANULOCYTE CT 3.1 /CUMM (1.4-6.5); ABSOLUTE LYMPH COUNT 0.9 /CUMM (1.2-3.4); ABSOLUTE MONOCYTE COUNT 0.3 /CUMM (0.10-0.60); BASOPHIL % 0.9 % (0.0-2.0); EOSINOPHIL % 4.6 % (0-5); HEMATOCRIT 30.3 % (42-52); MEAN CORPUSCULAR HGB 26.4 PG (27.0-31.0); MEAN CORPUSCULAR HGB CONC 32.2 G/DL (33.0-37.0); MEAN CORPUSCULAR VOLUME 82.2 FL (80.0-94.0); MEAN PLATELET VOLUME 8.7 FL (7.4-10.4); PLATELET COUNT 185 /CUMM (130-400); RBC DISTRIBUTION WIDTH 17.4 % (11.5-14.5); RED BLOOD CELL CT 3.69 /CUMM (4.70-6.10); WHITE BLOOD CELL COUNT 4.5 /CUMM (4.8-10.8)
[2016-11-30] MEDS ORDERED: LASIX20 M1 PO (02:12)
[2016-11-30 11:50] VITALS: BP 176/99
--- NOTE | 2016-11-30 11:57 | ED PSYCHIATRIST/APRN CONSULT ---
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 Reviewed initial ED and psych crisis reports, interviewed patient. He is an obese, dishevelled CM in a hospital bed, wearing hospital issued gown. Has poor dentition, tries to eat, uses an amplifier for hearing deficit. He is pleasant, cooperative, hyperverbal, reiterating the incidents leading to him being in the ER-very upset with a nurse at the facility because he claimed she did not give his medication for pain. He says that he put a cord around his neck to "give her some excitement". The patient states, and also believes, that he does not want to hurt himself or anybody else. Verbatim:"why would I want to hurt myself, for, I have a house, I love my , we have been for 51 years, we love each other, she is very supportive." The patient has been hospitalized for medical reasons multiple times and had been seen by our psychiatric consult services due to statements that he wants to /kill himself. The statements were usually made when he had altered mental state due to one of the multiple physical ailments he suffers from. Suicidality cleared as soon as the acute episode cleared. He carries a diagnosis of unspecified dementia-seemingly stable. Nursing supervisor histology at the [facility], Romi Hernandez approved the transfer back, will accompany him, she agrees with the plan. The corroborates his history, feels comfortable with him going back to the short term rehab. facility. Will return to , PCP for continuation of care. It is our clinical judgement that the patient does not need further psychiatric care currently, and is safe to return to the facility where he came from.
[2017-01-28] MEDS ORDERED: LOMOTIL 2.5-0.1 EACH PO (10:44)
[2017-01-28] MEDS ORDERED: LEXAPRO20 M1 PO (10:45)
[2017-03-11] MEDS ORDERED: TYLENOL PO (11:33)
[2017-03-11] MEDS ORDERED: GABAPENTIN100 M2 PO (11:33)
[2017-03-11] MEDS ORDERED: LOPERAMIDE2 M2 PO (11:34)
[2017-03-11] MEDS ORDERED: ZOLOFT25 M1 PO (11:34)
== END 2016-11-30 12:15 ==
LOC: ERH 21:49
PROVIDERS: Emergency Medicine
DX: F32.9 Major depressive disorder, single episode, unspecified (principal); G89.29 Other chronic pain
CPT/HCPCS: 80307; G0463; G0480

== ENCOUNTER 2016-12-12 13:32 | Emergency (ER) | payer OTHER ==
[~2016-12-12] VITALS: Ht 172.7 cm; Wt 158.8 kg
--- NOTE | 2016-12-12 14:30 | ED GI/GU/ABDOMINAL COMPLAINT ---
History of Present Illness General Chief Complaint: Male Genitourinary Problems Stated Complaint: BLEEDING CATHETER, RASH AROUND GENITAILIA Source: patient Exam Limitations: no limitations Vital Signs & Intake/Output Vital Signs & Intake/Output Vital Signs Date Time Temp Pulse Resp B/P Pulse O2 O2 Flow FiO2 Ox Delivery Rate 12/12 1431 96.9 76 18 147/83 95 Room Air (ANTONIO TEAGUE,AC) Allergies Coded Allergies: NO KNOWN ALLERGIES (12/26/15) Reconcile Medications Acetaminophen 500 MG TABLET 1,000 MG PO TID back pain Allopurinol 100 MG TABLET 1 TAB PO DAILY Gout (Reported) Amiodarone HCl 200 MG TABLET 1 TAB PO DAILY afib (Reported) Amlodipine Besylate 5 MG TABLET 1 TAB PO DAILY HTN (Reported) Betamethasone Dipropionate/C (Clotrimazole and Betamethasone Dipropionate 0) 1 CRE CRE 1 YOCASTA TOP UNKNOWN (Reported) Calcium Acetate 667 MG CAPSULE 1 CAP PO TID CALCIUM SUPPLEMENT (Reported) Diclofenac Sodium (Voltaren) 1 % GEL..GRAM. 1 GM TOP 4 TIMES/DAY PRN CHronic back pain apply to back areas alternating with lidocaine Donepezil HCl 10 MG TABLET 1 TAB PO DAILY DEMENTIA (Reported) Duloxetine Hydrochloride (Cymbalta) 30 MG CAPSULE.DR 30 MG PO DAILY neuropathic pain Ergocalciferol (Vitamin D2) (Vitamin D2) 50,000 UNIT CAPSULE 1 CAP PO EVERY Calcium Supplementation (Reported) Furosemide (Lasix) 20 MG TABLET 1 TAB PO DAILY EDEMA (Reported) Gabapentin 300 MG CAPSULE 1 CAP PO TID NEUROPATHIC PAIN Lidocaine (Lidoderm) 5 % ADH..PATCH 1 PAT EXT DAILY back pain apply 12 hours on and 12 hours off Nystatin 15 GM CREAM..G. 1 YOCASTA TOP TID PRN rash Tramadol HCl 50 MG TABLET 50 MG PO Q4 PRN PAIN SCALE 7-10 (SEVERE) Triage Note: PT BIBA FOR LEAKING GARZA, PT UNCOOPERATIVE WITH OBTAINING VS, ATTEMPTED TO TALK TO PT AND PT REPEATING THAT HE "WANTS TO GO HOME BUT I DONT FEEL LIKE BEING HOME SO MAYBE THEY CAN KEEP ME FOR OBSERVATION" PT REFUSING THIS RN TO ASSESS GARZA. Triage Nurses Notes Reviewed? yes HPI: Mr. Paulino is a 76 yo m w/ PMH dementia, COPD nonhome ICU, CK D, paroxysmal A. fib not on anticoagulation, BPH, chronic back pain, chronic indwelling catheter changed every 2 months, anemia, gout, anxiety, depression, hearing loss w/ hearing aid use and morbid obesity BIBA for leaking Garza catheter. Patient states that his Garza catheters typically changed by his urologist. His urologist is on vacation for the next 4 weeks so he decided to come in and be evaluated. Patient states the Garza's been leaking urine around his urethra. He also endorses a genital rash. The patient was quite difficult with nursing staff, and not allowing them to perform vitals another required functions. After discussion with the patient, I explained to him that these things needed to be performed before a full evaluation can be obtained. Repeat vitals and blood work. She denies dysuria, fever, chills, shortness of breath, cough, chest pain, abdominal pain. He does endorse his chronic back pain which is unchanged. Past History Travel History Traveled to [place] past 21 day No Medical History Any Pertinent Medical History? see below for history Neurological: migraine EENT: hearing loss Cardiovascular: AFIB, CHF (diastolic dysfunction), myocardial infarction Respiratory: COPD Gastrointestinal: GERD, C DIFF Hepatic: NONE Renal: benign prost hyperplasia, chronic kidney disease (h/o CARISA), RENAL FAILURE CKD ARF CHRONIC INDWELLING GARZA hematuria UTI (h/o CARISA episodes) Musculoskeletal: gout Psychiatric: anxiety Endocrine: obesity Blood Disorders: anemia Cancer(s): NONE EDITING INTERNSHIP/Reproductive: UTI CHRONIC GARZA Other Medical Hx: shingles Paroxysmal atrial fibrillation, GI bleed, diastolic dysfunction, coronary artery disease, hypertension, labyrinthitis, chronic kidney disease, chronic indwelling Garza catheter, BPH, renal calculi, gout, arthritis, DJD, chronic bilateral lower extremity edema, anxiety, depression, iron deficiency anemia. History of MRSA: Yes History of VRE: Yes History of CDIFF: No Surgical History Surgical History: none, . Psychosocial History Who do you live with Family Services at Home Nursing What is your primary language Bulgarian Tobacco Use: Never used ETOH Use: denies use Illicit Drug Use: denies illicit drug use Family History Family History, If Any: BROTHER (Brain tumor). FATHER Relation not specified for: FH: hypertension Hx Contributory? No Review of Systems Review of Systems Constitutional: Denies: no symptoms. Comments Review of systems: See HPI, all other systems negative. Constitutional, no chills, no fever, no weight loss. HEENT: No visual changes, no sore throat, no congestion, Cardiovascular: No chest pain, no palpitations, no orthopnea, or ankle swelling. Skin: No jaundice, no rashes Respiratory, no dyspnea, cough, sputum, or hemoptysis GI no nausea, no vomiting no dysuria, no hematuria, +urinary leakage around gazra. genital rash. Muscle skeletal: No back pain, no neck pain Neurologic, no numbness no confusion Psych: No stress, anxiety, depression Heme/endocrine: No bruising, no bleeding polyuria, polydipSIA Immunology: No splenectomy, no history of AIDS Physical Exam Physical Exam General Appearance: well developed/nourished, no apparent distress, alert, awake , morbidly obese Head: atraumatic, normal appearance Eyes: Bilateral: normal appearance, PERRL, EOMI, normal inspection. Neck: normal inspection Respiratory: normal breath sounds, chest non-tender, no respiratory distress Cardiovascular: regular rate/rhythm, bilateral lower extremity nonpitting edema w/ chronic venous stasis skin changes Gastrointestinal: normal bowel sounds, soft, limited abdominal exam given morbid obesity Male Genitals: normal genitalia, catheter in place. Retraction of foreskin reveals whitish cottage-cheese like discharge Back: normal inspection, normal range of motion Extremities: normal range of motion Neurologic/Psych: no motor/sensory deficits, awake, alert, oriented x 3 Skin: intact, normal color, warm/dry Core Measures ACS in differential dx? No Severe Sepsis Present: No Septic Shock Present: No Progress Differential Diagnosis: epididymitis, gastritis, urinary retention, urethritis, UTI/pyelo, candidiasis Plan of Care: Orders Procedure Date/time Status CULTURE,URINE 12/12 142 Active URINALYSIS 12/12 142 Complete HEPATIC FUNCTION PANEL 12/12 142 Complete CBC WITHOUT DIFFERENTIAL 12/12 142 Complete BASIC METABOLIC PANEL 12/12 142 Complete EKG 12/12 142 Active Laboratory Tests 12/12/16 1507: Urine Color YEL, Urine Clarity HAZY H, Urine pH 6.0, Ur Specific [place] 1.025, Urine Protein >=300 H, Urine Ketones TRACE H, Urine Nitrite NEG, Urine Bilirubin NEG@ICTO, Urine Urobilinogen 0.2, Ur Leukocyte Esterase MOD H, Ur Microscopic SEDIMENT EXAMINED, Urine RBC 10-15 H, Urine WBC 25-50 H, Ur Epithelial Cells RARE, Urine Bacteria MANY H, Urine Hemoglobin MOD H, Urine Glucose NEG 12/12/16 1505: Anion Gap 14, Estimated GFR 35 L, BUN/Creatinine Ratio 14.2, Glucose 79, Calcium 9.2, Total Bilirubin 0.6, Direct Bilirubin 0.6 H, AST 22, ALT 32, Alkaline Phosphatase 109, Total Protein 7.8, Albumin 4.2, CBC w Diff NO MAN DIFF REQ, RBC 4.57 L, MCV 81.3, MCH 26.1 L, RDW 16.6 H, MPV 7.9, Gran % 80.9 H, Lymphocytes % 12.0 L, Monocytes % 5.1, Eosinophils % 1.8, Basophils % 0.2, Absolute Granulocytes 5.1, Absolute Lymphocytes 0.8 L, Absolute Monocytes 0.3, Absolute Eosinophils 0.1, Absolute Basophils 0, PUBS MCHC 32.1 L Microbiology 12/12 1507 URINE ROUT: Urine Culture - RECD 76 yo m w/ multiple medical problems here currently for various complaints. Patient complains today of a leaking Garza catheter. Garza catheters changed bedside by me (the physician). No resistance while placing the Garza and was quite atraumatic. We will send down some urine to assess for UTI given the indwelling Garza catheter. He does endorse some suprapubic tenderness and had chronic abdominal pain as well as back pain. Will re-assess after labs result. No rash on genitals noted on exam, however, entire genitals were covered in feces. Labs essentially normal (at patient's baseline). Cr actually at baseline. UA is positive for UTI. Pt is chronically catherized. Previous sensitivities show ciprofloxacin sensitivity. Will DC home w/ cipro and have patient f/u w/ urologist. Spoke to as well. Gave patient and return precautions. (ANTONIO TEAGUE,AC) Initial ED EKG: NSR, RBBB, LAFB, PVC Prior EKG: unchanged (11/14/16) Departure Departure Time of Disposition: 1701 Disposition: HOME OR SELF CARE Condition: Stable Clinical Impression Primary Impression: Urinary tract infection Qualifiers: Urinary tract infection type: catheter-associated UTI Indwelling urinary catheter type: indwelling urethral catheter Encounter type: subsequent encounter Qualified Codes: T83.511D - Infection and inflammatory reaction due to indwelling urethral catheter, subsequent encounter; N39.0 - Urinary tract infection, site not specified Secondary Impressions: Garza catheter in place Referrals: TOMMIE TEAGUE,CARLOS A Andersen (PCP/Family) Additional Instructions: Please follow-up with their primary care doctor and urologist as needed. You have been diagnosed with a urinary tract infection today. He has been prescribed ciprofloxacin and given a prescription for that. You have worsening abdominal pain, chest pain, shortness of breath or any other concerning symptoms , please return to the emergency department for evaluation. Departure Forms: Customer Survey General Discharge Information Prescriptions: Current Visit Scripts Ciprofloxacin HCl (Cipro) 1 TAB PO BID #20 TAB
[2016-12-12 15:19] LABS: ABSOLUTE BASOPHIL COUNT 0 /CUMM (0.0-0.2); ABSOLUTE EOSINOPHIL COUNT 0.1 /CUMM (0.0-0.7); ABSOLUTE GRANULOCYTE CT 5.1 /CUMM (1.4-6.5); ABSOLUTE LYMPH COUNT 0.8 /CUMM (1.2-3.4); ABSOLUTE MONOCYTE COUNT 0.3 /CUMM (0.10-0.60); BASOPHIL % 0.2 % (0.0-2.0); EOSINOPHIL % 1.8 % (0-5); GRANULOCYTE % 80.9 % (42.2-75.2); HEMATOCRIT 37.2 % (42-52); MEAN CORPUSCULAR HGB 26.1 PG (27.0-31.0); MEAN CORPUSCULAR HGB CONC 32.1 G/DL (33.0-37.0); MEAN CORPUSCULAR VOLUME 81.3 FL (80.0-94.0); MEAN PLATELET VOLUME 7.9 FL (7.4-10.4); PLATELET COUNT 194 /CUMM (130-400); RBC DISTRIBUTION WIDTH 16.6 % (11.5-14.5); RED BLOOD CELL CT 4.57 /CUMM (4.70-6.10); WHITE BLOOD CELL COUNT 6.3 /CUMM (4.8-10.8)
[2016-12-12] MEDS ORDERED: CIPRO500 M1 PO (17:06)
[2016-12-12 18:29] VITALS: BP 145/73
[2017-01-28] MEDS ORDERED: LOMOTIL 2.5-0.1 EACH PO (10:44)
[2017-01-28] MEDS ORDERED: LEXAPRO20 M1 PO (10:45)
[2017-03-11] MEDS ORDERED: TYLENOL PO (11:33)
[2017-03-11] MEDS ORDERED: GABAPENTIN100 M2 PO (11:33)
[2017-03-11] MEDS ORDERED: ZOLOFT25 M1 PO (11:34)
[2017-03-11] MEDS ORDERED: LOPERAMIDE2 M2 PO (11:34)
== END 2016-12-12 18:30 ==
LOC: ERH 13:32
PROVIDERS: Emergency Medicine
DX: T83.511A Infection and inflammatory reaction due to indwelling urethral catheter, initial encounter (principal)
CPT/HCPCS: 81001; 87086; 93005; 93010

== ENCOUNTER 2017-01-21 10:02 | Emergency (ER) | payer OTHER ==
--- NOTE | 2017-01-21 10:09 | ED GI/GU/ABDOMINAL COMPLAINT ---
History of Present Illness General Chief Complaint: General Adult Stated Complaint: ?UTI Source: patient, family, old records Exam Limitations: poor historian Vital Signs & Intake/Output Vital Signs & Intake/Output Vital Signs Date Time Temp Pulse Resp B/P B/P Pulse O2 O2 Flow FiO2 Mean Ox Delivery Rate 01/21 1015 97.4 78 16 156/74 94 Room Air Allergies Coded Allergies: NO KNOWN ALLERGIES (12/26/15) Reconcile Medications Acetaminophen 500 MG TABLET 1,000 MG PO TID back pain Allopurinol 100 MG TABLET 1 TAB PO DAILY Gout (Reported) Amiodarone HCl 200 MG TABLET 1 TAB PO DAILY afib (Reported) Amlodipine Besylate 5 MG TABLET 1 TAB PO DAILY HTN (Reported) Betamethasone Dipropionate/C (Clotrimazole and Betamethasone Dipropionate 0) 1 CRE CRE 1 YOCASTA TOP UNKNOWN (Reported) Calcium Acetate 667 MG CAPSULE 1 CAP PO TID CALCIUM SUPPLEMENT (Reported) Ciprofloxacin HCl (Cipro) 500 MG TABLET 1 TAB PO BID INFECTION Ciprofloxacin HCl (Cipro) 500 MG TABLET 1 TAB PO BID UTI Diclofenac Sodium (Voltaren) 1 % GEL..GRAM. 1 GM TOP 4 TIMES/DAY PRN CHronic back pain apply to back areas alternating with lidocaine Donepezil HCl 10 MG TABLET 1 TAB PO DAILY DEMENTIA (Reported) Duloxetine Hydrochloride (Cymbalta) 30 MG CAPSULE.DR 30 MG PO DAILY neuropathic pain Ergocalciferol (Vitamin D2) (Vitamin D2) 50,000 UNIT CAPSULE 1 CAP PO EVERY Calcium Supplementation (Reported) Furosemide (Lasix) 20 MG TABLET 1 TAB PO DAILY EDEMA (Reported) Gabapentin 300 MG CAPSULE 1 CAP PO TID NEUROPATHIC PAIN Lidocaine (Lidoderm) 5 % ADH..PATCH 1 PAT EXT DAILY back pain apply 12 hours on and 12 hours off Loperamide HCl (Imodium A-D) 2 MG TABLET 1 TAB PO BID PRN DIARRHEA Nystatin 15 GM CREAM..G. 1 YOCASTA TOP TID PRN rash Tramadol HCl 50 MG TABLET 50 MG PO Q4 PRN PAIN SCALE 7-10 (SEVERE) Triage Nurses Notes Reviewed? yes Duration: constant Timing: recent history Quality/Severity: mild Severity Numbers: 1 Location: unknown Radiation: no radiation Activities at Onset: none HPI: PT IS A 76-year-old gentleman with a PMH of dementia, COPD not on home oxygen, CKD, paroxysmal A. fib not on anticoagulation, BPH, chronic back pain, chronic indwelling catheter changed Q 2 months, anemia, gout, anxiety, depression, hearing impairment who presents emergency room by by ambulance for concerns of dark smelling urine from his place indwelling Garza catheter. Patient is requesting something to drink and a battery for his earplugs. Patient otherwise denies any fevers chills chest pain nausea vomiting shortness of breath cough. (RADHA OCHOA) Past History Medical History Any Pertinent Medical History? 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 History of MRSA: Yes History of VRE: Yes History of CDIFF: No Surgical History Surgical History: none, . Psychosocial History Who do you live with Family Services at Home Nursing What is your primary language Korean Family History Family History, If Any: BROTHER (Brain tumor). FATHER Relation not specified for: FH: hypertension Hx Contributory? No (RADHA OCHOA) Review of Systems Review of Systems Constitutional: Reports: no symptoms. EENTM: Reports: no symptoms. Respiratory: Reports: no symptoms. Cardiovascular: Reports: no symptoms. GI: Reports: no symptoms. Genitourinary: Reports: see HPI. Musculoskeletal: Reports: no symptoms. Skin: Reports: no symptoms. Neurological/Psychological: Reports: no symptoms. Hematologic/Endocrine: Reports: no symptoms. Immunologic/Allergic: Reports: no symptoms. All Other Systems: Reviewed and Negative (RADHA OCHOA) Physical Exam Physical Exam General Appearance: no apparent distress, alert, obese Head: atraumatic Eyes: Bilateral: normal appearance. Ears, Nose, Throat, Mouth: hearing grossly normal Respiratory: normal breath sounds, chest non-tender Cardiovascular: regular rate/rhythm Gastrointestinal: normal bowel sounds, soft, non-tender Extremities: normal range of motion Neurologic/Psych: awake, alert Skin: intact, normal color Core Measures ACS in differential dx? No Severe Sepsis Present: No Septic Shock Present: No (JA KNOWLES,RADHA) Progress Differential Diagnosis: AAA, AMI, appendicitis, biliary colic, bowel obstruction , colon cancer, cholecystitis, diverticulitis, epididymitis, esophageal varices, gastritis, hepatitis, hernia, hemorrhoids, ischemic bowel, inflamm bowel dis, Vi-Fitz tear, orchitis, pancreatitis, prostatitis, peptic ulcer, PUD/GERD, perforated viscous, pyelonephritis, SBO, testicular torsion, ureterolithiasis, urinary retention, urethritis, UTI/pyelo Plan of Care: Orders Procedure Date/time Status CULTURE,URINE 01/21 1005 Active URINALYSIS 01/21 1005 Complete Laboratory Tests 01/21/17 1030: Urinalysis LIGHT H, Urine Color YEL, Urine Clarity HAZY H, Urine pH 6.0, Ur Specific [place] 1.020, Urine Protein 100 H, Urine Ketones NEG, Urine Nitrite POS H, Urine Bilirubin NEG, Urine Urobilinogen 0.2, Ur Leukocyte Esterase MOD H, Ur Microscopic SEDIMENT EXAMINED, Urine RBC 10-15 H, Urine WBC 25-50 H, Ur Epithelial Cells FEW, Urine Crystals RARE [place] OX, Urine Bacteria FEW H, Urine Hemoglobin LARGE H, Urine Glucose NEG Microbiology 01/21 1030 URINE ROUT: Urine Culture - RECD Patient currently is resting comfortable on bed however is a significantly poor historian physical exam findings has nontender abdomen Patient had concerns of uncomplicated urinary tract infection Patient was afebrile vital signs unremarkable Patient again presented to the emergency room with only concerns that he was requesting batteries for his headphones something to drink Patient was able tolerate by mouth Patient also states that his has been upset with him for many months due to cleaning up after him where he states that he's had intermittent episodes of diarrhea however no bowel movements have occurred in the emergency room patient was given antidiarrhea prescriptions and ciprofloxacin and sent to his pharmacy at [facility] in which his most recent prescriptions were picked up at [facility]. Patient was transported via [facility] I discussed patient with case management will also try to evaluate patient for home health services however he declined evaluation Nursing staff also did discuss disposition and plan with who agrees and has no questions. DISCUSSED WITH DR MENJIVAR (RADHA OCHOA) Initial ED EKG: none (RADHA OCHOA) Departure Departure Disposition: HOME OR SELF CARE Condition: Stable Clinical Impression Primary Impression: UTI (urinary tract infection) Referrals: TOMMIE TEAGUE,CARLOS A Andersen (PCP/Family) Additional Instructions: As discussed continue home medications as directed. Begin the prescription of ciprofloxacin as directed for the full course and a prescription of Imodium for diarrhea. Prescriptions are waiting at [facility]. Follow-up with primary care doctor in 5 days if no better. If symptoms worsen return to emergency room. Departure Forms: Customer Survey General Discharge Information Prescriptions: Current Visit Scripts Ciprofloxacin HCl (Cipro) 1 TAB PO BID #20 TAB Loperamide HCl (Imodium A-D) 1 TAB PO BID PRN DIARRHEA #20 TAB (RADHA OCHOA) PA/SENIOR GAMEMASTER Co-Sign Statement Statement: ED Attending supervision documentation- x I saw and evaluated the patient. I have also reviewed all the pertinent lab results and diagnostic results. I agree with the findings and the plan of care as documented in the PA's/SENIOR GAMEMASTER's documentation. [] I have reviewed the ED Record and agree with the PA's/SENIOR GAMEMASTER's documentation. [] Additions or exceptions (if any) to the PAs/SENIOR GAMEMASTER's note and plan are summarized below: [] (OTTO TEAGUE,NUVIA)
[2017-01-21 10:15] VITALS: BP 156/74
[2017-01-21] MEDS ORDERED: CIPRO500 M1 PO (11:16)
[2017-01-21] MEDS ORDERED: IMODIUM A-D2 M1 PO (11:16)
[2017-01-28] MEDS ORDERED: LOMOTIL 2.5-0.1 EACH PO (10:44)
[2017-01-28] MEDS ORDERED: LEXAPRO20 M1 PO (10:45)
[2017-03-11] MEDS ORDERED: GABAPENTIN100 M2 PO (11:33)
[2017-03-11] MEDS ORDERED: TYLENOL PO (11:33)
[2017-03-11] MEDS ORDERED: LOPERAMIDE2 M2 PO (11:34)
[2017-03-11] MEDS ORDERED: ZOLOFT25 M1 PO (11:34)
== END 2017-01-21 11:50 ==
LOC: ERH 10:02
DX: N39.0 Urinary tract infection, site not specified (principal)
CPT/HCPCS: 81001; 87086

== ENCOUNTER → 2017-01-29 | Day surgery (SDC) | payer OTHER ==
[~2017-01-29] MED LIST changes: +IMODIUM A-D2 M1 PO; +LEXAPRO20 M1 PO; +LOMOTIL 2.5-0.1 EACH PO; +LOPERAMIDE2 M2 PO; +TYLENOL PO; +ZOLOFT25 M1 PO
--- NOTE | 2017-02-02 08:59 | Operative Report ---
Operative/Inv Procedure Report Surgery Date: 01/29/17 Name of Procedure: cysto: urethral stricture dilatation, hoang change (complex) Pre-Operative Diagnosis: retention: urethral stricture Post-Operative Diagnosis: same Estimated Blood Loss: scant Surgeon/Waste Hand: IGNACIA TENA MD Anesthesia: moderate sedation Drains: 20 fr. campo tip hoang with 10cc balloon Complications: none Operative/Procedure Note Note: The patient was taken to the operative room and placed on the OR table in supine position. Timeout was performed in order to confirm the patient's identity, procedure, anesthesia, antibiotics, as well as any other pertinent information. After adequate anesthesia, and antibiotics, the old non-functioning hoang was removed, and tthe patient was then placed lithotomy stirrups. He was then draped and prepped in the usual surgical fashion. A 22 Guamanian cystoscope sheath with a 30 angle lens was inserted into the mid-urethra with a long narrow stricture was encountered. Sequential dilatation with sounds were done from 14fr, 16fr., 18fr, 20fr, 22fr without significant difficulty. At this time, the cystoscope was then reinerted, and advanced into the bladder without difficulty. The bladder was noted to have the findings as discussed above. The bladder was then hydrodistended 2 with the irrigation fluid at 40 cm above the symphysis pubis. No evidence of tumor, increased petechiae, nor Hunner's ulceration was noted. Both ureteral orifices had clear reflux in their orthotopic position. No terminal bleed with drainage. Bladder capacity was normal. A 0.038 guide wire was placed into the bladder via cystoscope. Cystoscope was removed, leaving the guide wire in the bladder, under direct visualization. A 20fr campo tip hoang was then rail-roaded over the guidewire and entered the bladder draining clear fluid. 10cc of water was placed in the balloon, prior to removing the wire. The patient tolerated procedure well and was taken to recovery room in satisfactory condition. Discharge Disposition: Same Day Admissions CC: IGNACIA TENA MD
== END ==
LOC: STS 03:53
DX: N35.9 Urethral stricture, unspecified (principal); N40.1 Benign prostatic hyperplasia with lower urinary tract symptoms; R33.8 Other retention of urine; I10 Essential (primary) hypertension; I51.9 Heart disease, unspecified; N28.9 Disorder of kidney and ureter, unspecified; G47.30 Sleep apnea, unspecified; E66.01 Morbid (severe) obesity due to excess calories; Z87.891 Personal history of nicotine dependence
CPT/HCPCS: 36415; J2250

== ENCOUNTER → 2017-03-17 | Day surgery (SDC) | payer OTHER ==
--- NOTE | 2017-03-17 16:17 | Operative Report ---
Operative/Inv Procedure Report Surgery Date: 03/17/17 Name of Procedure: cystoscopy: difficult hoang insertion/exchange Pre-Operative Diagnosis: urethral strictures with false passages Post-Operative Diagnosis: same Estimated Blood Loss: scant Surgeon/Building Engineer: IGNACIA TENA MD Anesthesia: moderate sedation Drains: 20fr cachil dehe tip hoang Operative/Procedure Note Note: The patient was taken to the operative room and placed on the OR table in supine position. Timeout was performed in order to confirm the patient's identity, procedure, anesthesia, antibiotics, as well as any other pertinent information. After adequate anesthesia, and antibiotics, the patient was then placed lithotomy stirrups draped and prepped in the usual surgical fashion. A 14 Sinhala cystoscope sheath with a 30 angle lens was inserted into the urethra and advanced into the bladder without difficulty. The bladder was noted to have the findings as discussed above. The bladder was then hydrodistended 2 with the irrigation fluid at 40 cm above the symphysis pubis. No evidence of tumor, increased petechiae, nor Hunner's ulceration was noted. Both ureteral orifices had clear reflux in their orthotopic position. No terminal bleed with drainage. Bladder capacity was normal. The cystoscope was removed under direct visualization. A 20 Sinhala cachil dehe tip Hoang catheter was then inserted without significant difficulty. Upon entering the bladder, clear fluid drained, and a 10 mL balloon was inflated. The patient tolerated procedure well and was taken to recovery room in satisfactory condition. Discharge Disposition: Same Day Admissions CC: IGNACIA TENA MD
== END ==
LOC: STS 03-12 04:36
DX: N35.8 Other urethral stricture (principal); N36.5 Urethral false passage; N40.0 Benign prostatic hyperplasia without lower urinary tract symptoms; I10 Essential (primary) hypertension; I48.91 Unspecified atrial fibrillation
CPT/HCPCS: J2250

== ENCOUNTER 2017-11-09 12:08 | Inpatient (IN) | payer OTHER ==
[~2017-11-09] VITALS: Ht 172.7 cm; Wt 162.8 kg
[~2017-11-09 12:08] MED LIST changes: +ACIDOPHILUS1 EACH PO; +ASPERCREME177.4 ML TOP; +AUGMENTIN 875-1 EACH PO; +BISACODYL10 M1 RC; +CALCIUM 500 +1 EAC3 PO; +CEFPODOXIME PR200 M2 PO; +COLACE100 M1 PO; +FIBERCON625 M1 PO; +FLONASE ALLERG9.9 ML NAS; +GLUCAGON EMERGEN1 M1 IM; +GLUCOSE GEL38 GM PO; +IPRAT-ALBUT 0.5-3 ML INH; +LIDOCAINE HCL5 M1 TOP; +MAPAP325 M1 PO; +MIRALAX119 GM PO; +NARCAN4 MG NAS; +REMERON15 M2 PO; +TRAZODONE HCL50 M1 PO; +TUMS200 MG PO; +ULTRAM50 M1 PO; +ZITHROMAX250 M2 PO; +ZOLOFT100 M1 PO; -ZOLOFT25 M1 PO
[2017-11-09 12:58] LABS: ABSOLUTE BASOPHIL COUNT 0.1 /CUMM (0.0-0.2); ABSOLUTE EOSINOPHIL COUNT 0.1 /CUMM (0.0-0.7); ABSOLUTE GRANULOCYTE CT 4.4 /CUMM (1.4-6.5); ABSOLUTE LYMPH COUNT 1.3 /CUMM (1.2-3.4); ABSOLUTE MONOCYTE COUNT 0.2 /CUMM (0.10-0.60); BASOPHIL % 1.1 % (0.0-2.0); EOSINOPHIL % 1.1 % (0-5); HEMATOCRIT 30.4 % (42-52); MEAN CORPUSCULAR HGB 24.8 PG (27.0-31.0); MEAN CORPUSCULAR HGB CONC 31.5 G/DL (33.0-37.0); MEAN CORPUSCULAR VOLUME 78.8 FL (80.0-94.0); PLATELET COUNT 221 /CUMM (130-400); RBC DISTRIBUTION WIDTH 18.4 % (11.5-14.5); RED BLOOD CELL CT 3.86 /CUMM (4.70-6.10)
[2017-11-09 13:12] LABS: PT 12.1 SEC (9.4-12.5); PTT 33 SEC (25-37)
--- NOTE | 2017-11-09 14:29 | CT SCAN REPORT ---
EXAMINATION: CT HEAD WITHOUT CONTRAST CLINICAL INFORMATION: Altered mental status. Found unresponsive. COMPARISON: Head CT 11/13/2016. TECHNIQUE: Contiguous axial imaging was performed from the skull base to vertex without intravenous administration of contrast. The study is severely degraded by motion artifact. DLP: 756 mGy-cm. FINDINGS: There is no gross mass effect, midline shift, or large parenchymal hemorrhage. The ventricular size is approximately stable compared with 11/13/2016. There is diffuse brain parenchymal volume loss. 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 The right mastoid is under pneumatized. There is subtotal opacification of the left middle ear and underpneumatized mastoid. There is an unchanged mucosal retention cyst in the left maxillary sinus. IMPRESSION: 1. Severely motion degraded study. 2. No gross mass effect, midline shift, or large parenchymal hemorrhage.
--- NOTE | 2017-11-09 14:47 | ED AMS/SEIZURE/WEAK/DIZZY ---
History of Present Illness General Chief Complaint: General Adult Stated Complaint: BIBA FOR WEAKNESS Source: patient, EMS, [facility] Exam Limitations: clinical condition, dementia, physical impairment Vital Signs & Intake/Output Vital Signs & Intake/Output Vital Signs Date Time Temp Pulse Resp B/P B/P Pulse O2 O2 Flow FiO2 Mean Ox Delivery Rate 11/12 1344 98.8 78 20 118/70 93 Room Air 11/12 0800 Room Air 11/12 0600 98.4 67 20 144/76 92 Room Air ED Intake and Output 11/12 0000 11/11 1200 Intake Total 490 450 Output Total 1200 Balance -710 450 Intake, IV 120 450 Intake, Oral 370 Output, Urine 1200 Allergies Coded Allergies: No Known Allergies (07/02/17) Triage Note: PT BIBA FROM F WITH C/O AMS/LETHARGY. PER EMS, PT WAS FOUND "UNRESPONSIVE" THIS AM AROUND 8AM. WAS AGAIN FOUND IN THE SAME STATE AT APPROXIMATELY 11AM AND EMS WAS CALLED. BLOOD GLUCOSE CLINIC OFFICE ASSISTANT 98. W-10 ALSO NOTES HYPOXIA WITH SATs IN UPPER 80s. HR IRREGULAR R/T CARDIAC HX. UNABLE TO OBTAIN BP EN ROUTE. PER EMS, PT MADE PHONE CALL ON WAY TO HOSPITAL. PT ARRIVES AWAKE, VISIBLE TREMORS, STATING "I'M COLD". IRRITABLE WITH STAFF "WHY THE HELL AM I HERE? GET ME JONA RAFAL". CHRONIC GARZA CATHETER IN PLACE DRAINING CLEAR YELLOW URINE. VSS AT ARRIVAL Triage Nurses Notes Reviewed? yes Onset: Abrupt Duration: unknown duration Injury Environment: long-term No Modifying Factors: none HPI: 77-year-old male comes into the emergency room for further evaluation of increased confusion. Patient was sent in by ambulance from long-term. He reportedly was found unresponsive twice at the long-term this morning which is not normal for him. He was brought in for further evaluation by ambulance. Increased weakness and confusion. Patient is unable to offer any medication due to clinical condition. (Jason Larsen) Reconcile Medications Acetaminophen 325 MG TABLET 2 TAB PO Q6-8P PAIN CONTROL (Reported) Calcium Carbonate/Vitamin D3 (Caltrate 600 + D Tablet) 600 MG-800 TABLET 1 TAB PO DAILY SUPPLEMENT (Reported) Calcium Polycarbophil (Fibercon) 625 MG TABLET 1 TAB PO BID PRN CONSTIPATION (Reported) Divalproex Sodium (Depakote Sprinkle) 125 MG CAP.SPRINK 1 CAP PO TID MENTAL HEALTH (Reported) Gabapentin 300 MG CAPSULE 1 CAP PO BID NEUROPATHY (Reported) Guaifenesin/D-Methorphan Hb/PE (Tussin Cf Cough & Cold Liq) 100 MG-10 MG-5 MG/5 ML LIQUID 10 ML PO TID COUGH (Reported) Lactobacillus Acidophilus (Acidophilus) 1 EACH CAPSULE 1 CAP PO BID STOMACH HEALTH (Reported) Lidocaine (Aspercreme) 4 % ADH..PATCH 1 PATCH TD DAILY PAIN CONTROL (Reported ) Mirtazapine (Remeron) 30 MG TABLET 1 TAB PO QPM MENTAL HEALTH (Reported) Naloxone HCl 0.4 MG/ML VIAL 1 YOCASTA MAYUR NEEDED OPOID INDUCED RESP DISTRESS ( Reported) Trazodone HCl 50 MG TABLET 1 TAB PO BID MENTAL HEALTH (Reported) Trazodone HCl 50 MG TABLET 0.5 TAB PO TID PRN ANXIETY (Reported) (Adeline TEAGUE,Gabe Chavez) Past History Travel History Traveled to [place] past 21 day No Medical History Any Pertinent Medical History? see below for history Neurological: dementia, migraine, metabolic encephalopathy EENT: hearing loss Cardiovascular: AFIB, CHF (diastolic dysfunction), myocardial infarction Respiratory: COPD Gastrointestinal: diverticulitis, GERD, C DIFF Hepatic: NONE Renal: benign prost hyperplasia, chronic kidney disease (h/o CARISA), RENAL FAILURE CKD ARF CHRONIC INDWELLING GARZA hematuria UTI (h/o CARISA episodes) Musculoskeletal: gout Psychiatric: anxiety, depression Endocrine: obesity Blood Disorders: anemia Cancer(s): NONE LEGAL DIRECTOR/Reproductive: UTI CHRONIC GARZA Other Medical Hx: shingles Paroxysmal atrial fibrillation, GI bleed, diastolic dysfunction, coronary artery disease, hypertension, labyrinthitis, chronic kidney disease, chronic indwelling Garza catheter, BPH, renal calculi, gout, arthritis, DJD, chronic bilateral lower extremity edema, anxiety, depression, iron deficiency anemia. History of MRSA: Yes History of VRE: Yes History of CDIFF: No Surgical History Surgical History: none, . Psychosocial History Who do you live with Other (see notes) Services at Home Nursing What is your primary language Kazakh Tobacco Use: Cognitive Impairment ETOH Use: 6 Family History Family History, If Any: BROTHER (Brain tumor). FATHER Relation not specified for: FH: hypertension Hx Contributory? No (Isma KNOWLES,Jason) Review of Systems Review of Systems Constitutional: Reports: see HPI. EENTM: Reports: no symptoms. Respiratory: Reports: no symptoms. Cardiovascular: Reports: no symptoms. GI: Reports: no symptoms. Genitourinary: Reports: no symptoms. Musculoskeletal: Reports: no symptoms. Skin: Reports: no symptoms. Neurological/Psychological: Reports: see HPI. Hematologic/Endocrine: Reports: no symptoms. Immunologic/Allergic: Reports: no symptoms. All Other Systems: Reviewed and Negative (Jason Larsen) Physical Exam Physical Exam General Appearance: awake, obese Head: atraumatic Eyes: Bilateral: normal appearance. Ears, Nose, Throat: normal ENT inspection, hearing decreased Neck: normal inspection, limited range of motion Respiratory: no respiratory distress, decreased breath sounds Cardiovascular: regular rate/rhythm Gastrointestinal: soft Extremities: limited range of motion Neurologic/Psych: awake, alert Skin: intact Core Measures ACS in differential dx? Yes CVA/TIA Diagnosis No Sepsis Present: No Sepsis Focused Exam Completed? No (Jason Larsen) Progress Differential Diagnosis: arrythmia, anemia, CVA/stroke, dehydration, electrolyte imbalance, GI bleed, intracranial mass/tumor, pneumonia, sepsis, UTI/pyelo Plan of Care: Orders Procedure Date/time Status B-TYPE NATRIURETIC PEP (BNP) 11/13 0600 Active BASIC ELECTROLYTES PLUS BUN&CR 11/13 0600 Active Garza, Insertion/Removal/Asses 11/12 1135 Active OXYGEN 11/11 UNK Complete OXYGEN DAILY CHARGE 11/11 UNK Complete CONTIN. POS. AIRWAY PRESS. CHG 11/11 UNK Complete Current Medications Sig/Frandy Start time Last Medication Dose Stop Time Status Admin Lidocaine 1 PAT DAILY 11/10 1000 AC 11/12 (Lidoderm) 0747 Nystatin 1 YOCASTA TID PRN 11/10 0230 AC 11/10 (Mycostatin) 0509 Divalproex Sodium 125 MG TID 11/09 220 AC 11/12 (Depakote) 2038 Gabapentin 300 MG BID 11/09 2199 AC 11/12 (Neurontin) 2038 Heparin Sodium 5,000 UNIT Q8 11/09 2199 AC 11/12 (Porcine) 2038 Mirtazapine 30 MG QPM 11/09 220 AC 11/12 (Remeron) 2038 Trazodone HCl 50 MG BID 11/09 2199 AC 11/12 (Desyrel) 2038 Trazodone HCl 25 MG TID PRN 11/09 1944 AC (Desyrel) Acetaminophen 650 MG Q6P PRN 11/09 1929 AC (Tylenol) Guaifenesin 10 ML Q6P PRN 11/09 1929 AC (Robitussin) Laboratory Tests 11/12/17 0715: Anion Gap 10, Estimated GFR 42 L, BUN/Creatinine Ratio 22.5, CBC w Diff NO MAN DIFF REQ, RBC 3.62 L, MCV 78.1 L, MCH 24.7 L, MCHC 31.6 L, RDW 18.7 H, MPV 10.1, Gran % 69.5, Lymphocytes % 19.0 L, Monocytes % 6.8, Eosinophils % 3.8, Basophils % 0.9, Absolute Granulocytes 3.6, Absolute Lymphocytes 1.0 L, Absolute Monocytes 0.3, Absolute Eosinophils 0.2, Absolute Basophils 0 Diagnostic Imaging: Viewed by Me: Radiology Read, CT Scan. Discussed w/RAD: Radiology Read, CT Scan. Radiology Impression: PATIENT: MARCY LOMELI PRESENT AGE: 77 PATIENT ACCOUNT NO: [id number] : 40 LOCATION: [facility] ORDERING PHYSICIAN: Jason KNOWLES SERVICE DATE: 11/09/17 EXAM TYPE: CAT - CT HEAD WO IV CONTRAST EXAMINATION: CT HEAD WITHOUT CONTRAST CLINICAL INFORMATION: Altered mental status. Found unresponsive. COMPARISON: Head CT . TECHNIQUE: Contiguous axial imaging was performed from the skull base to vertex without intravenous administration of contrast. The study is severely degraded by motion artifact. DLP: 756 mGy-cm. FINDINGS: There is no gross mass effect, midline shift, or large parenchymal hemorrhage. The ventricular size is approximately stable compared with 11/13/2016. There is diffuse brain parenchymal volume loss. 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 The right mastoid is under pneumatized. There is subtotal opacification of the left middle ear and underpneumatized mastoid. There is an unchanged mucosal retention cyst in the left maxillary sinus. IMPRESSION: 1. Severely motion degraded study. 2. No gross mass effect, midline shift, or large parenchymal hemorrhage. DICTATED BY: Alicia Daniel MD DATE/TIME DICTATED :11/09/171420 SPRAY GUN REPAIRER HELPER:EFREM DATE/TIME TRANSCRIBED:11/09/171420 CONFIDENTIAL, DO NOT COPY WITHOUT APPROPRIATE AUTHORIZATION. < Electronically signed in Other Vendor System> SIGNED BY: Alicia Daniel MD 11/09/171428, PATIENT: MARCY LOMELI PRESENT AGE: 77 PATIENT ACCOUNT NO: [id number] : 40 LOCATION: [facility] ORDERING PHYSICIAN: Jason KNOWLES SERVICE DATE: 11/09/17 EXAM TYPE: RAD - XRY-PORTABLE CHEST XRAY EXAMINATION: CHEST 1 VIEW CLINICAL INFORMATION: Altered mental status. COMPARISON: 07/07/2017. TECHNIQUE: An AP view of the chest is provided. FINDINGS: The cardiac silhouette is prominent, though stable. There is retrocardiac opacification and mild hazy opacification at the right lung base. There is mild interstitial prominence present bilaterally. The osseous structures are stable with shoulder joint degenerative change bilaterally. IMPRESSION: Stable enlarged cardiac silhouette with retrocardiac opacification. Mild interstitial prominence likely public service representative of mild vascular congestion. The appearance is concerning for a left lower lobe infiltrate. Recommendation is for a followup chest series to be obtained following treatment and/or resolution of symptoms to assure resolution of this appearance. DICTATED BY: Aden Lozoya MD DATE/TIME DICTATED:11/09/171458 SPRAY GUN REPAIRER HELPER:EFREM DATE/TIME TRANSCRIBED:11/09/171458 CONFIDENTIAL, DO NOT COPY WITHOUT APPROPRIATE AUTHORIZATION. <Electronically signed in Other Vendor System> SIGNED BY: Aden Lozoya MD 11/09/17 1506 Initial ED EKG: normal sinus rhythm, rate (65) (Jason Larsen) Departure Departure Disposition: STILL A PATIENT Condition: Stable Clinical Impression Primary Impression: Pneumonia Secondary Impressions: Acute kidney injury, Altered mental status, Dehydration Referrals: West TEAGUE,Fredy Pinto (PCP/Family) Departure Forms: Customer Survey General Discharge Information Admission Note Spoke With: Aden Lanier MD Documentation of Exam: Documentation of any treatments & extenuating circumstances including Concerns Regarding Discharge (functional status, medication knowledge or non-compliance, living conditions, etc.) that warrant an admission rather than observation: Patient will require gentle IV hydration. IV antibiotics. Repeat blood work. Repeat kidney function. High risk. Patient did poorly as an outpatient. (Jason Larsen) PA/FORM RAISER Co-Sign Statement Statement: ED Attending supervision documentation- [X] I saw and evaluated the patient. I have also reviewed all the pertinent lab results and diagnostic results. I agree with the findings and the plan of care as documented in the PA's/FORM RAISER's documentation. Patient presents for evaluation of 2 episodes of unresponsiveness at his extended care facility. Physical examination reveals an alert patient with a nonfocal neurologic examination. [] I have reviewed the ED Record and agree with the PA's/FORM RAISER's documentation. [] Additions or exceptions (if any) to the PAs/FORM RAISER's note and plan are summarized below: [] (Adeline TEAGUE,Gabe Chavez)
--- NOTE | 2017-11-09 15:04 | RADIOLOGY REPORT ---
EXAMINATION: CHEST 1 VIEW CLINICAL INFORMATION: Altered mental status. COMPARISON: 07/07/2017. TECHNIQUE: An AP view of the chest is provided. FINDINGS: The cardiac silhouette is prominent, though stable. There is retrocardiac opacification and mild hazy opacification at the right lung base. There is mild interstitial prominence present bilaterally. The osseous structures are stable with shoulder joint degenerative change bilaterally. IMPRESSION: Stable enlarged cardiac silhouette with retrocardiac opacification. Mild interstitial prominence likely distribution sales representative of mild vascular congestion. The appearance is concerning for a left lower lobe infiltrate. Recommendation is for a followup chest series to be obtained following treatment and/or resolution of symptoms to assure resolution of this appearance.
--- NOTE | 2017-11-09 17:31 | History & Physical ---
Antolin Romero MDapna 11/09/17 9501: General Information and HPI MD Statement: I have seen and personally examined MARCY LOMELI and documented this H&P. The patient is a 77 year old M who presented with a patient stated chief complaint of [noncompliant with oxygen with desaturation to 80s]. Source of Information: W10 Exam Limitations: physical impairment History of Present Illness: 77 YO M with a PMH of dementia, hearing impairment, unable to give history, COPD not on home oxygen, diastolic CHF, CKD, paroxysmal A. fib not on anticoagulation (was on amiodarone), BPH, chronic back pain, chronic indwelling catheter, anemia , gout, anxiety, depression, and morbid obesity sent from [facility] for noncompliant with his oxygen and the saturation to 80s earlier today. Collateral information obtained from the nurese at [facility] via phone. At Baseline patient is bedbound refusing his physical therapy sessions, verballyabusive to the staff , noncompliant with his oxygen [at baseline he is on 3 L of nasal oxygen]. Today he pulled his nasal cannula and desaturated to 80s. Immediately he was put on oxygen back and was monitored by a sitter for 30 minutes. His saturation then was 97%. After 30 minutes he pulled his nasal cannula again and desaturated to 80s. He was also found to be lethargic today. Hence he was sent to [place] [facility] for further evaluation. he didn't complain of any chest pain, chest pressure, nausea, vomiting, abdominal pain, diarrhea, constipation, headache, fall, loss of consciousness, confusion. Allergies/Medications Allergies: Coded Allergies: No Known Allergies (07/02/17) Compliance With Home Meds: FAIR Past History Travel History Traveled to [place] past 21 day No Medical History Neurological: dementia, migraine, metabolic encephalopathy EENT: hearing loss Cardiovascular: AFIB, CHF (diastolic dysfunction), myocardial infarction Respiratory: COPD Gastrointestinal: diverticulitis, GERD, C DIFF Hepatic: NONE Renal: benign prost hyperplasia, chronic kidney disease (h/o CARISA), RENAL FAILURE CKD ARF CHRONIC INDWELLING GARZA hematuria UTI (h/o CARISA episodes) Musculoskeletal: gout Psychiatric: anxiety, depression Endocrine: obesity Blood Disorders: anemia Cancer(s): NONE 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 History of MRSA: Yes History of VRE: Yes History of CDIFF: No Surgical History Surgical History: none, . ECHO Results (as available) EF% 65 Past Family/Social History Family History Relations & Conditions if any BROTHER (Brain tumor). FATHER Relation not specified for: FH: hypertension Psychosocial History Who Do You Live With? spouse Services at Home: Nursing ETOH Use: 6 Functional Ability ADLs Needs Assist: dressing, eating, toileting, bathing. Ambulation: OFTEN USES WHEELCHAIR IADLs Independent: shopping, housework, finances, food prep, telephone, transportation , medication admin. Review of Systems Review of Systems Constitutional: Reports: no symptoms. Comments ros-unobtainable Exam & Diagnostic Data Last 24 Hrs of Vital Signs/I&O Vital Signs Date Time Temp Pulse Resp B/P B/P Pulse O2 O2 Flow FiO2 Mean Ox Delivery Rate 11/09 2006 97.8 69 18 138/81 96 Nasal 2.0L Cannula 11/09 1907 97.3 92 20 113/61 95 Room Air 11/09 1551 97.2 66 20 138/90 93 Nasal 3.0L Cannula 11/09 1318 97 Nasal 2.0L Cannula 11/09 1216 96.6 68 22 141/90 97 Nasal 2.0L Cannula Physical Exam General Appearance Alert, Oriented X3, Cooperative, No Acute Distress Skin No Rashes HEENT PERRLA Cardiovascular Regular Rate, Normal S1, Normal S2, No Murmurs Lungs Clear to Auscultation Abdomen Soft, No Tenderness, No Hepatospenomegaly (obese) Neurological Normal Speech, Strength at 5/5 X4 Ext, Normal Tone, Sensation Intact, Cranial Nerves 3-12 NL Extremities No Cyanosis, No Edema, Normal Pulses Last 24 Hrs of Labs/Aurelio: Laboratory Tests 11/09/17 1330: Urine Color YEL, Urine Clarity HAZY H, Urine pH 6.5, Ur Specific [place] 1.025, Urine Protein 100 H, Urine Ketones NEG, Urine Nitrite POS H, Urine Bilirubin NEG, Urine Urobilinogen 0.2, Ur Leukocyte Esterase MOD H, Ur Microscopic SEDIMENT EXAMINED, Urine RBC 10-15 H, Urine WBC 25-50 H, Ur Epithelial Cells RARE, Urine Bacteria MANY H, Urine Hemoglobin MOD H, Urine Glucose NEG 11/09/17 1235: Anion Gap 9, Estimated GFR 39 L, BUN/Creatinine Ratio 31.2 H, Glucose 92, Lactic Acid 0.5 L, Calcium 9.0, Total Bilirubin 0.3, AST 15 L, ALT 23, Alkaline Phosphatase 58, Troponin I 0.04, Pwk-D-Bshuuhhribz Pept 7650 H, Total Protein 6.8, Albumin 3.4 L, Globulin 3.4, Albumin/Globulin Ratio 1.0 L, PT 12.1, INR 1.15, APTT 33, CBC w Diff NO MAN DIFF REQ, RBC 3.86 L, MCV 78.8 L, MCH 24.8 L, MCHC 31.5 L, RDW 18.4 H, MPV 9.0, Gran % 73.0, Lymphocytes % 21.2 , Monocytes % 3.6, Eosinophils % 1.1, Basophils % 1.1, Absolute Granulocytes 4.4 , Absolute Lymphocytes 1.3, Absolute Monocytes 0.2, Absolute Eosinophils 0.1, Absolute Basophils 0.1 Microbiology 11/09 1330 URINE ROUT: Urine Culture - RECD 11/09 1250 BLOOD: Blood Culture - RECD 11/09 1235 BLOOD: Blood Culture - RECD Diagnostic Data EKG Results Sinus rhythm left anterior fascicular block CXR Results Stable enlarged cardiac silhouette with retrocardiac opacification. Mild interstitial prominence likely sales representative rural power of mild vascular congestion. The appearance is concerning for a left lower lobe infiltrate. Recommendation is for a followup chest series to be obtained following treatment and/or resolution of symptoms to assure resolution of this appearance. Other Results Head CT IMPRESSION: 1. Severely motion degraded study. 2. No gross mass effect, midline shift, or large parenchymal hemorrhage. Assessment/Plan Assessment: 77 YO M with a PMH of dementia, hearing impairment, unable to give history, COPD not on home oxygen, diastolic CHF, CKD, paroxysmal A. fib not on anticoagulation (was on amiodarone), BPH, chronic back pain, chronic indwelling catheter, anemia , gout, anxiety, depression, and morbid obesity sent from [facility] for noncompliant with his oxygen and the saturation to 80s earlier today. Admission vitals Temperature 97.2, pulse rate 66, respiratory rate 20, blood pressure 138/90, saturating at 93 on 3 L of nasal oxygen Admission labs W BC 6, hemoglobin 9.6, hematocrit 30.4, MCV 78.8, platelet 221, sodium 148, potassium 4.7, BUNs 53, creatinine 1.7, calcium 9, AST 15, AST 23, proBNP [address] IMPRESSION: 1. Severely motion degraded study. 2. No gross mass effect, midline shift, or large parenchymal hemorrhage. Chest x-ray Stable enlarged cardiac silhouette with retrocardiac opacification. Mild interstitial prominence likely sales representative rural power of mild vascular congestion. The appearance is concerning for a left lower lobe infiltrate. Recommendation is for a followup chest series to be obtained following treatment and/or resolution of symptoms to assure resolution of this appearance. ED treatment Ceftriaxone once, azithromycin once, normal saline at 75mL per hour. 1. Hypoxia secondary due to noncompliance with his oxygen. 2. Lethargy 3. Diastolic congestive heart failure 4. Atrial fibrillation 5. BPH on chronic Garza catheterization 6. Gout 7. Anxiety/depression Assessment and plan * Admitted in telemetry for continuous pulse oximetry monitoring. * Continue his home oxygen 3 L via nasal cannula. * Monitor vitals. Pt was given one dose of ceftriaxone and azithromycin. Though CAT scan shows left lower lobe opacity clinically pt is stable, afebrile with no leukocytosis. low suspicion for aspiration pneumonia. we will continue monitoring vitals and add antibiotics if needed. chest xray if needed. * Serial BEP. Patient has a sodium of 148 which can be secondary to dehydration /decreased by mouth intake. Once he passes swallow eval will encourage increased by mouth intake. * Troponin and EKG in a.m. * Need to confirm the medication at [facility] in a.m. * Physical therapy consult in a.m. Pt informed about the admission. * Code-full code * Diet-nothing by mouth pending swallow eval. As Ranked By This Provider Problem List: 1. CKD (chronic kidney disease) 2. Depression 3. Hypoxia Core Measures/Misc (06/14) Acute Coronary Syndrome ACS Diagnosis: No Congestive Heart Failure Congestive Heart Failure Diagnosis No Cerebrovascular Accident CVA/TIA Diagnosis: No VTE (View Protocol) VTE Risk Factors Age>40 No Mechanical VTE Prophylaxis d/t Other No VTE Pharm Prophylaxis d/t Other Sepsis (View protocol) Sepsis Present: No Jeanette Stuart 11/09/176: General Information and HPI Allergies/Medications Home Med list Acetaminophen 325 MG TABLET 2 TAB PO Q6-8P PAIN CONTROL (Reported) Calcium Carbonate/Vitamin D3 (Caltrate 600 + D Tablet) 600 MG-800 TABLET 1 TAB PO DAILY SUPPLEMENT (Reported) Calcium Polycarbophil (Fibercon) 625 MG TABLET 1 TAB PO BID PRN CONSTIPATION (Reported) Divalproex Sodium (Depakote Sprinkle) 125 MG CAP.SPRINK 1 CAP PO TID MENTAL HEALTH (Reported) Gabapentin 300 MG CAPSULE 1 CAP PO BID NEUROPATHY (Reported) Guaifenesin/D-Methorphan Hb/PE (Tussin Cf Cough & Cold Liq) 100 MG-10 MG-5 MG/5 ML LIQUID 10 ML PO TID COUGH (Reported) Lactobacillus Acidophilus (Acidophilus) 1 EACH CAPSULE 1 CAP PO BID STOMACH HEALTH (Reported) Lidocaine (Aspercreme) 4 % ADH..PATCH 1 PATCH TD DAILY PAIN CONTROL (Reported ) Mirtazapine (Remeron) 30 MG TABLET 1 TAB PO QPM MENTAL HEALTH (Reported) Naloxone HCl 0.4 MG/ML VIAL 1 YOCASTA MAYUR NEEDED OPOID INDUCED RESP DISTRESS ( Reported) Trazodone HCl 50 MG TABLET 1 TAB PO BID MENTAL HEALTH (Reported) Trazodone HCl 50 MG TABLET 0.5 TAB PO TID PRN ANXIETY (Reported) Resident Review Statement Resident Statement: examined this patient, discussed with purchasing internship Other Findings: The patient is a 77-year-old male resident of [facility] with past medical history significant for COPD stage III PE, atrial fibrillation not on any anticoagulation, COPD on 3 L of home oxygen, chronic indwelling Foleys due to BPH, hypertension, coronary artery disease, chronic diastolic heart failure, depression and dementia was sent in from nursing facility due to concerns of change in his behavior while he was abusive to the staff and also he was pulling out his nasal cannula oxygen and repeatedly desaturating in the low 80s. Baseline patient is not properly communicative but at times he is able to speak in broken sentences but no acute change in his mental status was noticed by nursing facility. While interviewing patient we were not able to get any Meaning full history out of him and most of the history is from nursing facility staff. Patient's was also contacted but she was also not aware of what happened this morning in the nursing facility rather she Called from facility the patient is being transferred to [facility]. Emergency room vital signs were temperature 96.6, pulse 68, respiratory 22, blood pressure 141/90 mmHg and he was saturating 97% on 2 L nasal cannula oxygen. Later on he required 3 L. Labs were significant for WBC count 6.0, hemoglobin 9.6, hematocrit 30.4, platelet count 221, sodium 148, potassium 4.7, chloride 104, BUN 53, creatinine 1.7, ProBNP 7650, troponin 0.04. Head CT was negative for any intracranial bleed or mass effect. Chest x-ray shows stable enlarged cardiac silhouette with retrocardiac opacification, mild interstitial prominence likely sales representative rural power of mild was clear congestion and appearance is concerning for left lower lobe infiltrate. EKG showed irregular rhythm with no acute ST-T wave changes On examination He was alert but not oriented Head atraumatic Neck supple, no JVD Chest clear to auscultate Heart S1-S2 normal with no added sounds Abdomen soft with normal bowel sounds, no organomegaly Extremities showed no edema cyanosis or clubbing No neurological deficit noted on neurological examination Assessment 77 year old male with past medical history significant for chronic indwelling Garza's catheter, hypertension, diastolic heart failure, COPD, dementia was brought in from nursing facility due to concern of change in his behavior which could be due to advanced dementia and to rule out underlying infection if any. We will admit patient in telemetry floor and will address functional problems Problem list 1. Acute delirium/worsening dementia need to rule out underlying infection pneumonia/UTI -Patient has chronic indwelling Garza's catheter and UA does show elevated WBC, positive leukocyte Estrace and nitrates but as he has no urinary symptoms, fever, leukocytosis ,chills most likely we would not treat with antibiotics and we will send cultures. Of note patient already get a Dose of ceftriaxone in ER but urine culture was already been sent. 2. Elevated proBNP concerning for CHF exacerbation On clinical examination he does not seems like in congestive heart failure. No crackles were heard on chest auscultation and proBNP is not a very good indicator of CHF but acute increase almost 7 fold increased his baseline would warrant monitoring him on telemetry floor and will repeat his chest x-ray tomorrow morning. We will hold off any diuretic therapy for now and would consider cardiology evaluation in a.m. his initial troponin is negative we will check another set of troponins in a.m. Echocardiogram in a.m. 3. BPH with chronic indwelling Garza's catheter 4. Left lower lobe infiltrate concerning for pneumonia He has no WBC count, fever or chills so we will watch off of antibiotics for now and will monitor him closely for any worsening respiratory status or leukocytosis. He already received a dose of ceftriaxone and azithromycin in ED. 5. Hypernatremia could be due to dehydration. We will recheck his sodium level in a.m. Patient is full code Pharmacological DVT prophylaxis Heart healthy diet Aden Lanier MD 11/09/17 2233: Attending MD Review Statement Attending Statement Attending MD Statement: examined this patient, discuss w/resident/PA/FUNERAL DIRECTOR/EMBALMER, agreed w/resident/PA/FUNERAL DIRECTOR/EMBALMER, reviewed EMR data (avail), discussed with nursing, amended to note Attending Assessment/Plan: The patient is a 77 yo male with h/o COPD, preserved EF CHF, CKD, PAF (not on anti-coagulation), BPH, chronic back pain, and anxiety who was sent from [facility] in with oxygen saturations in the low 80's. He has not been cooperative with his care at [facility]. He had pulled off his mask and found oxygen saturation. in the low 80's. He denied any chest pain, nausea, abdominal pain, etc. Physical Exam: VS: T 97.2, P 68, R 20, PO 97% 2L HEENT: eyes- PERRLA, EOMI Neck: no JVD/bruits Chest: diminished BS at bases, clear. Ext: tr edema Impresion/Plan: #Possible LLL Infilrate vs CHF- difficult to determine if pneumonia vs some fluid accumulation secondary to CHF. Elevated BNP over baseline noted and CXR findings suggest possible CHF, however no rales on eam and clinically not clearly CHF. No fever/WBC. Plan: Will admit to telemetry and monitor. Cardiology consult. Received Abx in ED. Will hold antibiotics at present (received Ceftriaxone/Zitrhomax in ED). ECHO to re-evaluate EF. Consider Lasix pending cardiology evaluation. Observe for fever/follow WBC. #Altered Mental Status- ED suggested that the patient presented with mental status changes (delerium), however purchasing internship spoke with [facility] and it is not clear that there has been any mental status change. Patient with known dementia and periodic agitation at the facility and his presenting behavior was c/w norm. The patient had been found off of his oxygen and hypoxemia may have played role in decision to send to ED for evaluation. Patient was alert at time of my exam. Conversing on phone. Plan: Will follow status. Continue usual meds (Trazodone/Mirtazapine, etc.). #Hypoxemia- acute and chronic, secondary to non-comliance with oxygen. Normally on 3 L/Min at [facility]. Had desaturated to low 80's when off oxygen. Plan: Oxygen support and follow pulse ox. Continue on 3 L/min which is his baseline. Consider pulmonary evaluation. #Atrial Fibrillation- HR as above. Previous Amiodarone and anticoagulation (not on anti-coagulation at present). Plan: Continue Current meds. #BPH- has chronic indwelling Garza. Plan: Continue Garza. #CKD- Creatinine at baseline. Plan: Continue to follow. #H/O Dementia- appears stable. Plan: Geriatric consulted/Psych. #?CHF- preserved EF with elevated BNP and pleural effusion. Still not clear if this represents CHF. Plan: Cardiology consult. .
[2017-11-09] MEDS ORDERED: DEPAKOTE SPRIN125 M1 PO (19:17)
[2017-11-09] MEDS ORDERED: TRAZODONE HCL50 M1 PO ×2 (19:20→19:21)
[2017-11-09] MEDS ORDERED: ASPERCREME1 EACH TD (19:22)
[2017-11-09] MEDS ORDERED: TUSSIN CF COUG118 M1 PO (19:23)
[2017-11-09] MEDS ORDERED: FIBERCON625 M1 PO (19:24)
[2017-11-09] MEDS ORDERED: GABAPENTIN300 M2 PO (19:24)
[2017-11-09] MEDS ORDERED: CALTRATE 600 +1 EACH PO (19:25)
[2017-11-09] MEDS ORDERED: REMERON30 M3 PO (19:26)
[2017-11-09] MEDS ORDERED: ACIDOPHILUS1 EACH PO (19:26)
[2017-11-09] MEDS ORDERED: ACETAMINOPHEN325 M2 PO (19:27)
[2017-11-09] MEDS ORDERED: NALOXONE H0.4 MG/11 NAS (19:29)
[2017-11-09 23:03] VITALS: BP 110/70
--- NOTE | 2017-11-09 23:18 | Admission Certification ---
Admission Certification Certification Statement - As attending physician, I certify that at the time of - admission, based on clinical presentation, severity of - symptoms, need for further diagnostic testing and - therapeutic interventions, and risk of adverse outcomes - without in-hospital treatment, in my clinical assessment, - this patient requires an acute hospital stay for a minimum - of two nights or longer. I have also considered psychsocial - factors such as support system, advanced age, financial - issues, cognitive issues, and failed out-patient treatments, - past re-admission history, safety of patient, and lack of - compliance as applicable. Specific rationale supporting this admission is: The patient presents with altered mental satus at nursing facility ([facility] ) and was found to have increased hypoxeia. He had taken his oxygen off and was noted to be hypoxic. Will readit and follow closely (?IV Mariajose
[2017-11-10 06:47] VITALS: BP 116/60
--- NOTE | 2017-11-10 10:10 | PN- Housestaff ---
Amber TEAGUE,Shwetha 11/10/17 1010: Subjective Follow-up For: Acute hypercapnic hypoxic respiratory failure Aspiration pneumonia Subjective: Patient is very somnolent and hard to arouse even with sternal rub. Unable to follow commands with Pinpoint pupils on examination. Review of Systems Constitutional: Reports: no symptoms (Unable to obtain hx). Objective Last 24 Hrs of Vital Signs/I&O Vital Signs Date Time Temp Pulse Resp B/P B/P Pulse O2 O2 Flow FiO2 Mean Ox Delivery Rate 11/10 1457 97.3 57 20 108/60 96 11/10 1242 75 95 11/10 0647 97.7 87 20 116/60 92 Nasal 2.0L Cannula 11/09 2303 97.8 77 16 110/70 94 11/09 2106 Nasal 2.0L Cannula 11/09 2006 97.8 69 18 138/81 96 Nasal 2.0L Cannula 11/09 1907 97.3 92 20 113/61 95 Room Air Intake & Output 11/10 1600 11/10 0800 11/10 0000 Intake Total 776 562 2500 Output Total 125 150 150 Balance 776 947 2889 Intake, IV 312 049 5389 Intake, Oral 100 840 Number 0 Bowel Movements Output, Urine 125 150 150 Patient 360 lb Weight Weight Reported by Patient Measurement Method Physical Exam General Appearance: Cooperative, somnolent Skin: No Rashes, No Breakdown Cardiovascular: Regular Rate, Normal S1, Normal S2 Lungs: Clear to Auscultation, Normal Air Movement Abdomen: Normal Bowel Sounds, Soft, No Tenderness Extremities: No Clubbing, No Cyanosis, No Edema, Normal Pulses Current Medications: Current Medications Sig/Frandy Start time Last Medication Dose Route Stop Time Status Admin Acetaminophen 650 MG Q6P PRN 11/09 1930 AC PO Ampicillin Sodium/ 1,500 MG Q6H 11/10 1329 AC Sulbactam Sodium IV Sodium Chloride 100 ML Azithromycin 500 MG ONCE ONE 11/09 1630 DC 11/09 Dextrose/Water 250 ML IV 11/09 1729 1634 Ceftriaxone Sodium 0 .STK-MED ONE 11/09 1644 DC .ROUTE Ceftriaxone Sodium 1,000 MG ONCE ONE 11/09 1630 DC 11/09 IV 11/09 1631 1634 Dextrose/Water 1,000 ML ONCE ONE 11/10 1430 AC 11/10 IV 11/11 1029 1512 Divalproex Sodium 125 MG TID 11/09 2199 AC 11/09 PO 2148 Furosemide 20 MG ONCE ONE 11/10 1400 DC 11/10 IV 11/10 1401 1408 Gabapentin 300 MG BID 11/09 2199 AC 11/09 PO 214 Guaifenesin 10 ML Q6P PRN 11/09 1930 AC PO Heparin Sodium 5,000 UNIT Q8 11/09 2199 AC 11/10 (Porcine) SC 1349 Lidocaine 1 PAT DAILY 11/10 1000 AC EXT Mirtazapine 30 MG QPM 11/09 2199 AC 11/09 PO 214 Naloxone HCl 0.4 MG ONCE ONE 11/10 1345 DC 11/10 IV 11/10 1346 1349 Nystatin 1 YOCASTA TID PRN 11/10 0230 AC 11/10 TOP 0509 Sodium Chloride 1,000 ML Q13H 11/09 1615 DC 11/09 IV 2150 Trazodone HCl 50 MG BID 11/09 2199 AC 11/09 PO 2148 Trazodone HCl 25 MG TID PRN 11/09 1945 AC PO Last 24 Hrs of Lab/Aurelio Results Last 24 Hrs of Labs/Mics: Laboratory Tests 11/10/17 1440: pH 7.27 *L, pCO2 67 *H, pO2 91, HCO3 30 H, ABG O2 Sat (Measured) 95.0 L, P-50 (Temp Corrected) YES, Carboxyhemoglobin 1.1 L, O2 Concentration % 35%, Temperature 97.7, Respiration Rate 28, O2 Delivery Method BIPAP, Vent Mode ST, Expiratory Pressure 6, Inspiratory Pressure 24, Phlebotomy Draw Site LEFT RADIAL 11/10/17 1214: Anion Gap 13, Estimated GFR 37 L, BUN/Creatinine Ratio 27.8 H 11/10/17 1205: pH 7.16 *L, pCO2 84 *H, pO2 72 L, HCO3 29 H, ABG O2 Sat (Measured) 93.0 L, P- 50 (Temp Corrected) YES, Carboxyhemoglobin 1.4 L, O2 Concentration % 2L, Temperature 97.7, O2 Delivery Method NC, Phlebotomy Draw Site RIGHT RADIAL 11/10/17 1139: CBC w Diff Cancelled, WBC Cancelled, RBC Cancelled, Hgb Cancelled, Hct Cancelled , MCV Cancelled, MCH Cancelled, MCHC Cancelled, RDW Cancelled, Plt Count Cancelled, MPV Cancelled 11/10/17 0755: CBC w Diff NO MAN DIFF REQ, RBC 3.95 L, MCV 81.6, MCH 24.9 L, MCHC 30.5 L, RDW 18.9 H, MPV 9.3, Gran % 88.6 H, Lymphocytes % 8.4 L, Monocytes % 2.0, Eosinophils % 0.7, Basophils % 0.3, Absolute Granulocytes 5.9, Absolute Lymphocytes 0.6 L, Absolute Monocytes 0.1, Absolute Eosinophils 0, Absolute Basophils 0 11/10/17 0615: Anion Gap 11, Estimated GFR 37 L, BUN/Creatinine Ratio 28.3 H, Troponin I 0.04 11/10/17 0600: Sodium Cancelled, Potassium Cancelled, Chloride Cancelled, Carbon Dioxide Cancelled, Anion Gap Cancelled, BUN Cancelled, Creatinine Cancelled, BUN/ Creatinine Ratio Cancelled Microbiology 11/10 1205 NASOPHARYN: Influenza Virus A & B Rapid Smear - COMP Assessment/Plan Assessment: 77 YO M with a PMH of dementia, hearing impairment, unable to give history, COPD not on home oxygen, diastolic CHF, CKD, paroxysmal A. fib not on anticoagulation (was on amiodarone), BPH, chronic back pain, chronic indwelling catheter, anemia , gout, anxiety, depression, and morbid obesity sent from [facility] for noncompliance with oxygen and desaturation to 80s at the facilty. A/P 1. Acute hypercapnic hypoxic respiratory failure; ABG was obtained this morning after patient was found to be very lethargic and not arousable with pinpoint pupils not responsive to Narcan. ABGs showed a pH of 7.16, PCO2 84, PO2 72 and bicarbonate of 29. - Patient was started on BiPAP per Dr. Eagle. Repeat ABGs after the BiPAP showed improvement in pH and PCO2. - Stat chest x-ray was obtained showing Low lung volumes with multifocal subsegmental atelectasis with possible foci of superimposed consolidation in the right perihilar region and left retrocardiac region. - Start the patient on IV Unasyn for aspiration pneumonia. - Repeat CBC and BEP in a.m. - We'll obtain repeat CAT scan of the head since the previous study was motion degraded and patient continues to have pinpoint pupils even after receiving 1 dose of Narcan 0.4 mg. 2. ??Acute diastolic heart failure; elevated proBNP with chest x-ray showing vascular congestion but no interstitial edema. - We will give 1 dose of IV Lasix. - Also start IV fluids with D5W, as we are giving patient Lasix and he is already hypernatremic. 3. Hypernatremia; - Continue D5W. CODE STATUS changed from full code to DNR/DNI after discussion with the . DVT prophylaxis; subcutaneous heparin Patient is DNR/DNI Problem List: 1. Acute hypercapnic respiratory failure Pain Ratin Pain Location: None Pain Goal: Remain pain free Pain Plan: Pain pathway Tomorrow's Labs & Rationales: CBC(aspiration pneumonia), BEP (hypernatremia) Mirela Lewis MD 11/10/17 1530: Attending MD Review Statement Attending Statement Attending MD Statement: examined this patient, discuss w/resident/PA/STATOR WINDER, agreed w/resident/PA/STATOR WINDER, discussed with family, reviewed EMR data (avail), discussed with nursing, discussed with case mgmt, reviewed images Attending Assessment/Plan: This is a fairly complex 77-year-old male with multiple medical problems including advanced COPD with a history of chronic hypercapnia in the past, dementia, heart failure with preserved ejection fraction, A. fib not on anticoagulation due to high fall and bleeding risk. [facility] and [facility] for episode of desaturation. He was noted to be agitated in the [facility] as well and had thick mucus per the [facility] staff. Initially when he was evaluated in the emergency room by the night doctors there was a question off pneumonia and he got a dose of ceftriaxone and azithromycin but given the lack of a white count and lactic acidosis that was stopped. He was felt to be mildly dehydrated and borderline hypernatremic and low-dose IV fluids were started. When we saw him in the morning he was awake although not very cooperative but later around became very unresponsive with pinpoint pupils. We got a blood gas immediately which showed acute hypercapnic respiratory failure with acute hypercapnic respiratory acidosis. We started BiPAP immediately and Dr. Bansal saw him in consult. His gas is already improved in terms of his pH and PCO2 on the BiPAP. I'm also worried about aspiration pneumonia given his mentation and have started him on IV Unasyn to cover for aspiration organisms. Because his chest x-ray is being read as interstitial edema and there was worry that could heart failure be playing any role i.e. acute diastolic heart failure given the elevated BNP, we also treated him with 1 dose of IV Lasix and will need to watch his sodium and his BUN and creatinine closely given his CARISA. I spoke at length to his who was at his bedside. We spoke about his medical conditions and we have changed his CODE STATUS to DNR/DNI in view of his complex medical problems. We will continue to treat but no heroics and no CPR. Given that his mentation is not much better and he continues to have pinpoint pupils will repeat his CT head. His initial CT head was degraded because of motion artifact.
--- NOTE | 2017-11-10 12:46 | Event Note ---
Event Note Event Note: Because pt appeared drowsy and barely made a grimace to sternal rub, we obtained an ABG STAT: pH 7.16, paCO2 84, paO2 72, 93% sat, HCO3 29. With this finding of acute hypoxic hypercarbic resp failure, we started him on Bipap (18/6 @ rate 28, 35% O2). Dawna was explained about his condition and she was the person consenting to the BiPAP. Risk of aspiration and pneumonia was also explained to her before keeping him on BiPAP. 11/10/1811:[address] Luther spoken to in person about the consult and he will see the patient in a while. Wall Taper Helper Dr Sosa made aware of the consultation and will be seeing the patient shortly. Patient's Dawna was updated in person through every steps and was also explained about the patient's condition, choices, and possible outcomes. Given his poor prognosis, his made the decision that the patient would likely not have wanted full resuscitation measures in case of emergency, and accordingly she made recommendation to make the patient's code status as DNR/DNI (do not resuscitate/ do not intubate) after having an extensive conversation with attending physician Dr Mirela Lewis.
[2017-11-10 12:54] LABS: ABSOLUTE BASOPHIL COUNT 0 /CUMM (0.0-0.2); ABSOLUTE EOSINOPHIL COUNT 0 /CUMM (0.0-0.7); ABSOLUTE GRANULOCYTE CT 5.9 /CUMM (1.4-6.5); ABSOLUTE LYMPH COUNT 0.6 /CUMM (1.2-3.4); ABSOLUTE MONOCYTE COUNT 0.1 /CUMM (0.10-0.60); BASOPHIL % 0.3 % (0.0-2.0); EOSINOPHIL % 0.7 % (0-5); HEMATOCRIT 32.2 % (42-52); MEAN CORPUSCULAR HGB 24.9 PG (27.0-31.0); MEAN CORPUSCULAR HGB CONC 30.5 G/DL (33.0-37.0); MEAN CORPUSCULAR VOLUME 81.6 FL (80.0-94.0); MEAN PLATELET VOLUME 9.3 FL (7.4-10.4); PLATELET COUNT 208 /CUMM (130-400); RBC DISTRIBUTION WIDTH 18.9 % (11.5-14.5); RED BLOOD CELL CT 3.95 /CUMM (4.70-6.10); WHITE BLOOD CELL COUNT 6.7 /CUMM (4.8-10.8)
[2017-11-10 13:17] LABS: GRANULOCYTE % 88.6 % (42.2-75.2)
--- NOTE | 2017-11-10 13:18 | RADIOLOGY REPORT ---
EXAMINATION: XR PORTABLE CHEST CLINICAL INFORMATION: Rule out fluid overload. COMPARISON: 11/09/2017 TECHNIQUE: Portable frontal view of the chest was obtained. FINDINGS: Lung volumes are low. Cardiac silhouette remains mildly enlarged, unchanged. Aeration of the left lower lobe is improved, though there is atelectasis in the lower lobes bilaterally as well as the medial aspect of the upper lobes along the mediastinum. Superimposed consolidation remains possible. No pneumothorax. There is likely pulmonary venous congestion. No definite interstitial edema. IMPRESSION: Improved aeration of the left lung base. Pulmonary venous congestion, unchanged. No interstitial edema. Low lung volumes with multifocal subsegmental atelectasis. Foci of superimposed consolidation in the right perihilar region and left retrocardiac region remains possible.
--- NOTE | 2017-11-10 13:51 | Cons- Pulmonary ---
General Information and HPI Consulting Request Date of Consult: 11/10/17 Requested By: Charan Reason for Consult: Acute hypercapnic respiratory failure History of Present Illness: Patient is a 77-year-old gentleman with oxygen-dependent COPD atrial fibrillation multiple admissions to the hospital prior hypercarbia is admitted with depressed mental status and found to have a cute hypercapnic respiratory failure. Chest x-rays have suggested possible left lower lobe infiltrate and antibiotics have been started. Patient is on BiPAP and remains obtunded. Allergies/Medications Allergies: Coded Allergies: No Known Allergies (07/02/17) Home Med List: Acetaminophen 325 MG TABLET 2 TAB PO Q6-8P PAIN CONTROL (Reported) Calcium Carbonate/Vitamin D3 (Caltrate 600 + D Tablet) 600 MG-800 TABLET 1 TAB PO DAILY SUPPLEMENT (Reported) Calcium Polycarbophil (Fibercon) 625 MG TABLET 1 TAB PO BID PRN CONSTIPATION (Reported) Divalproex Sodium (Depakote Sprinkle) 125 MG CAP.SPRINK 1 CAP PO TID MENTAL HEALTH (Reported) Gabapentin 300 MG CAPSULE 1 CAP PO BID NEUROPATHY (Reported) Guaifenesin/D-Methorphan Hb/PE (Tussin Cf Cough & Cold Liq) 100 MG-10 MG-5 MG/5 ML LIQUID 10 ML PO TID COUGH (Reported) Lactobacillus Acidophilus (Acidophilus) 1 EACH CAPSULE 1 CAP PO BID STOMACH HEALTH (Reported) Lidocaine (Aspercreme) 4 % ADH..PATCH 1 PATCH TD DAILY PAIN CONTROL (Reported ) Mirtazapine (Remeron) 30 MG TABLET 1 TAB PO QPM MENTAL HEALTH (Reported) Naloxone HCl 0.4 MG/ML VIAL 1 YOCASTA MAYUR NEEDED OPOID INDUCED RESP DISTRESS ( Reported) Trazodone HCl 50 MG TABLET 1 TAB PO BID MENTAL HEALTH (Reported) Trazodone HCl 50 MG TABLET 0.5 TAB PO TID PRN ANXIETY (Reported) Review of Systems Review of Systems Constitutional: Denies: chills, fever. Comments Patient is obtunded Past History Travel History Traveled to [place] past 21 day No Medical History Blood Transfusion Hx: No Neurological: dementia, migraine, metabolic encephalopathy EENT: hearing loss Cardiovascular: AFIB, CHF (diastolic dysfunction), myocardial infarction Respiratory: COPD Gastrointestinal: diverticulitis, GERD, C DIFF Hepatic: NONE Renal: benign prost hyperplasia, chronic kidney disease (h/o CARISA), RENAL FAILURE CKD ARF CHRONIC INDWELLING GARZA hematuria UTI (h/o CARISA episodes) Musculoskeletal: gout Psychiatric: anxiety, depression Endocrine: obesity Blood Disorders: anemia Cancer(s): NONE FIELD SUPERINTENDENT/Reproductive: UTI CHRONIC GARZA Other Medical Hx: shingles Paroxysmal atrial fibrillation, GI bleed, diastolic dysfunction, coronary artery disease, hypertension, labyrinthitis, chronic kidney disease, chronic indwelling Garza catheter, BPH, renal calculi, gout, arthritis, DJD, chronic bilateral lower extremity edema, anxiety, depression, iron deficiency anemia. Surgical History Surgical History: 1 . Family History Relations & Conditions If Any: BROTHER (Brain tumor). FATHER Relation not specified for: FH: hypertension Psychosocial History Who Do You Live With? spouse Services at Home: Nursing Smoking Status: Former Smoker ETOH Use: 6 Functional Ability ADLs Needs Assist: dressing, eating, toileting, bathing. Ambulation: OFTEN USES WHEELCHAIR IADLs Independent: shopping, housework, finances, food prep, telephone, transportation , medication admin. ECHO Results (as available) EF% 65 Exam & Diagnostic Data Last 24 Hrs of Vital Signs/I&O Vital Signs Date Time Temp Pulse Resp B/P B/P Pulse O2 O2 Flow FiO2 Mean Ox Delivery Rate 11/10 1242 75 95 11/10 0647 97.7 87 20 116/60 92 Nasal 2.0L Cannula 11/09 2303 97.8 77 16 110/70 94 11/09 2106 Nasal 2.0L Cannula 11/09 2006 97.8 69 18 138/81 96 Nasal 2.0L Cannula 11/09 1907 97.3 92 20 113/61 95 Room Air 11/09 1551 97.2 66 20 138/90 93 Nasal 3.0L Cannula Intake & Output 11/10 1600 11/10 0800 11/10 0000 Intake Total 066 001 9638 Output Total 150 150 Balance 048 004 8499 Intake, IV 513 227 1612 Intake, Oral 100 840 Output, Urine 150 150 Patient 360 lb Weight Weight Reported by Patient Measurement Method Patient is obtunded HEENT exam shows minute pinpoint pupils exam of his chest shows occasional rhonchi diminished breath sounds are no wheezes cardiac exam shows a regular S1 and S2 without murmurs abdomen is soft nontender his extremities have trace edema Last 48 Hrs of Labs/Aurelio: Laboratory Tests 11/10/17 1214: Anion Gap 13, Estimated GFR 37 L, BUN/Creatinine Ratio 27.8 H 11/10/17 1205: pH 7.16 *L, pCO2 84 *H, pO2 72 L, HCO3 29 H, ABG O2 Sat (Measured) 93.0 L, P- 50 (Temp Corrected) YES, Carboxyhemoglobin 1.4 L, O2 Concentration % 2L, Temperature 97.7, O2 Delivery Method NC, Phlebotomy Draw Site RIGHT RADIAL 11/10/17 1139: CBC w Diff Cancelled, WBC Cancelled, RBC Cancelled, Hgb Cancelled, Hct Cancelled , MCV Cancelled, MCH Cancelled, MCHC Cancelled, RDW Cancelled, Plt Count Cancelled, MPV Cancelled 11/10/17 0755: CBC w Diff NO MAN DIFF REQ, RBC 3.95 L, MCV 81.6, MCH 24.9 L, MCHC 30.5 L, RDW 18.9 H, MPV 9.3, Gran % 88.6 H, Lymphocytes % 8.4 L, Monocytes % 2.0, Eosinophils % 0.7, Basophils % 0.3, Absolute Granulocytes 5.9, Absolute Lymphocytes 0.6 L, Absolute Monocytes 0.1, Absolute Eosinophils 0, Absolute Basophils 0 11/10/17 0615: Anion Gap 11, Estimated GFR 37 L, BUN/Creatinine Ratio 28.3 H, Troponin I 0.04 11/10/17 0600: Sodium Cancelled, Potassium Cancelled, Chloride Cancelled, Carbon Dioxide Cancelled, Anion Gap Cancelled, BUN Cancelled, Creatinine Cancelled, BUN/ Creatinine Ratio Cancelled 11/09/17 1518: Lactic Acid Cancelled 11/09/17 1330: Urine Color YEL, Urine Clarity HAZY H, Urine pH 6.5, Ur Specific [place] 1.025, Urine Protein 100 H, Urine Ketones NEG, Urine Nitrite POS H, Urine Bilirubin NEG, Urine Urobilinogen 0.2, Ur Leukocyte Esterase MOD H, Ur Microscopic SEDIMENT EXAMINED, Urine RBC 10-15 H, Urine WBC 25-50 H, Ur Epithelial Cells RARE, Urine Bacteria MANY H, Urine Hemoglobin MOD H, Urine Glucose NEG 11/09/17 1235: Anion Gap 9, Estimated GFR 39 L, BUN/Creatinine Ratio 31.2 H, Glucose 92, Lactic Acid 0.5 L, Calcium 9.0, Total Bilirubin 0.3, AST 15 L, ALT 23, Alkaline Phosphatase 58, Troponin I 0.04, Ahb-W-Nalqnpzbnzh Pept 7650 H, Total Protein 6.8, Albumin 3.4 L, Globulin 3.4, Albumin/Globulin Ratio 1.0 L, PT 12.1, INR 1.15, APTT 33, CBC w Diff NO MAN DIFF REQ, RBC 3.86 L, MCV 78.8 L, MCH 24.8 L, MCHC 31.5 L, RDW 18.4 H, MPV 9.0, Gran % 73.0, Lymphocytes % 21.2 , Monocytes % 3.6, Eosinophils % 1.1, Basophils % 1.1, Absolute Granulocytes 4.4 , Absolute Lymphocytes 1.3, Absolute Monocytes 0.2, Absolute Eosinophils 0.1, Absolute Basophils 0.1 Microbiology 11/10 1205 NASOPHARYN: Influenza Virus A & B Rapid Smear - COMP Assessment/Plan Impression/Plan: 77-year-old with COPD admitted with obtundation and found to have acute hypercapnic respiratory failure. In view of pinpoint pupils Narcan was administered without effect. His minute ventilation on current settings was 7 L is IPAP was increased to 24 with improvement in minute ventilation to 15 L. Chest x-ray suggested possibility of healthcare associated pneumonia. Markedly elevated BNP suggests a element of congestive heart failure. Recommendations: Increase IPAP to 20 4 repeat blood gas in 30 minutes. If arterial blood gases improved and mental status fails to improve would further evaluate neurologic status in view of pinpoint pupils unresponsive to Narcan. Adjust antibiotics for healthcare associated pneumonia.correct hypernatria. Aspiration precautions fully culture Consult Acknowledgment - Thank you for your consult request.
[2017-11-10 14:57] VITALS: BP 108/60
--- NOTE | 2017-11-10 16:29 | CT SCAN REPORT ---
EXAMINATION: CT HEAD WITHOUT CONTRAST CLINICAL INFORMATION: Altered mental status. Pinpoint pupils. COMPARISON: 11/09/2017. TECHNIQUE: Contiguous axial images of the brain were obtained without IV contrast. DLP: 618 mGy-cm. FINDINGS: There are no pathologic extra-axial fluid collections. The lateral, third, fourth ventricles are prominent, though stable, age-appropriate and concordant with the appearance of the sulci. There is mild periventricular low-attenuation present indicative of small vessel disease. There is no evidence for acute intraparenchymal hemorrhage or infarct. There is neither mass nor mass effect. There is no shift of midline structures. There is a stable either mucus retention cyst or polyp within the left maxillary sinus. There is under pneumatization again identified to the right mastoid. There is opacification to both mastoids. The paranasal sinuses are otherwise clear. There are no osseous lesions. IMPRESSION: No evidence for acute intracranial injury. Stable age-appropriate appearance of the brain.
--- NOTE | 2017-11-10 19:12 | Cons- Cardiology ---
General Information and HPI Consulting Request Date of Consult: 11/10/17 Requested By: Aden Lanier MD Reason for Consult: History of atrial fibrillation History of Present Illness: The patient is a 77-year-old male with history of hypertension, COPD, paroxysmal atrial fibrillation, and chronic renal insufficiency. He is transferred from his detention for decreased oxygen saturation. At baseline the patient is bedbound and has been refusing his oxygen. He is currently on BiPAP. He is disoriented and is not able to give significant history. He is noted to have acute hypercapnic respiratory failure. Chest x-ray suggests possible left lower lobe infiltrate, and antibiotic therapy has been initiated. Further history is not obtainable from the patient. Allergies/Medications Allergies: Coded Allergies: No Known Allergies (07/02/17) Home Med List: Acetaminophen 325 MG TABLET 2 TAB PO Q6-8P PAIN CONTROL (Reported) Calcium Carbonate/Vitamin D3 (Caltrate 600 + D Tablet) 600 MG-800 TABLET 1 TAB PO DAILY SUPPLEMENT (Reported) Calcium Polycarbophil (Fibercon) 625 MG TABLET 1 TAB PO BID PRN CONSTIPATION (Reported) Divalproex Sodium (Depakote Sprinkle) 125 MG CAP.SPRINK 1 CAP PO TID MENTAL HEALTH (Reported) Gabapentin 300 MG CAPSULE 1 CAP PO BID NEUROPATHY (Reported) Guaifenesin/D-Methorphan Hb/PE (Tussin Cf Cough & Cold Liq) 100 MG-10 MG-5 MG/5 ML LIQUID 10 ML PO TID COUGH (Reported) Lactobacillus Acidophilus (Acidophilus) 1 EACH CAPSULE 1 CAP PO BID STOMACH HEALTH (Reported) Lidocaine (Aspercreme) 4 % ADH..PATCH 1 PATCH TD DAILY PAIN CONTROL (Reported ) Mirtazapine (Remeron) 30 MG TABLET 1 TAB PO QPM MENTAL HEALTH (Reported) Naloxone HCl 0.4 MG/ML VIAL 1 YOCASTA MAYUR NEEDED OPOID INDUCED RESP DISTRESS ( Reported) Trazodone HCl 50 MG TABLET 1 TAB PO BID MENTAL HEALTH (Reported) Trazodone HCl 50 MG TABLET 0.5 TAB PO TID PRN ANXIETY (Reported) Review of Systems Review of Systems: No fever. No chills. No hemoptysis. No hematemesis. All other systems were reviewed, and were noted to be negative, however the patient is confused and is able to give only limited history. Past History Travel History Traveled to [place] past 21 day No Medical History Blood Transfusion Hx: No Neurological: dementia, migraine, metabolic encephalopathy EENT: hearing loss Cardiovascular: AFIB, CHF (diastolic dysfunction), myocardial infarction Respiratory: COPD Gastrointestinal: diverticulitis, GERD, C DIFF Hepatic: NONE Renal: benign prost hyperplasia, chronic kidney disease (h/o CARISA), RENAL FAILURE CKD ARF CHRONIC INDWELLING GARZA hematuria UTI (h/o CARISA episodes) Musculoskeletal: gout Psychiatric: anxiety, depression Endocrine: obesity Blood Disorders: anemia Cancer(s): NONE LEATHER SCRUBBER/Reproductive: UTI CHRONIC GARZA Other Medical Hx: shingles Paroxysmal atrial fibrillation, GI bleed, diastolic dysfunction, coronary artery disease, hypertension, labyrinthitis, chronic kidney disease, chronic indwelling Garza catheter, BPH, renal calculi, gout, arthritis, DJD, chronic bilateral lower extremity edema, anxiety, depression, iron deficiency anemia. Surgical History Surgical History: 1 . Family History Relations & Conditions If Any: BROTHER (Brain tumor). FATHER Relation not specified for: FH: hypertension Psychosocial History Who Do You Live With? spouse Services at Home: Nursing Smoking Status: Former Smoker ETOH Use: 6 Functional Ability ADLs Needs Assist: dressing, eating, toileting, bathing. Ambulation: OFTEN USES WHEELCHAIR IADLs Independent: shopping, housework, finances, food prep, telephone, transportation , medication admin. ECHO Results (as available) EF% 65 Exam & Diagnostic Data Vital Signs and I&O Vital Signs Date Time Temp Pulse Resp B/P B/P Pulse O2 O2 Flow FiO2 Mean Ox Delivery Rate 11/10 1457 97.3 57 20 108/60 96 11/10 1242 75 95 11/10 0800 92 Nasal 2.0L Cannula 11/10 0647 97.7 87 20 116/60 92 Nasal 2.0L Cannula 11/09 2303 97.8 77 16 110/70 94 11/09 2105 Nasal 2.0L Cannula 11/09 2006 97.8 69 18 138/81 96 Nasal 2.0L Cannula Intake & Output 11/10 1600 11/10 0811/10 0000 11/09 1600 11/09 0811/09 0000 Intake Total 144 234 5401 Output Total 125 150 150 Balance 388 581 8545 Intake, IV 514 390 8277 Intake, Oral 100 840 Number 0 Bowel Movements Output, Urine 125 150 150 Patient 360 lb Weight Weight Reported by Patient Measurement Method Physical Exam: Gen: The patient is in no acute distress HEENT: Normal nose, ears, and oropharynx. Pupils equal bilaterally. Conjunctiva normal. Neck: Supple with no JVD, no masses, and no thyromegaly Lungs: Decreased breath sound with normal respiratory effort Heart: RRR, S1, S2, no murmurs. No peripheral edema, 2+ pulses in the lower extremities bilaterally Abdomen: Soft, nontender, no masses. No hepatomegaly. No splenomegaly Extremities: No clubbing or cyanosis. Normal muscle strength in the upper and lower extremities Skin: Normal skin turgor with no skin ulcers or lesions noted. Neuro: Cranial nerves intact. Sensation intact Psych: Alert and oriented x 3 with appropriate affect Labs/Aurelio Results: Laboratory Tests 11/10 11/10 11/10 11/10 1440 1214 1205 1139 Blood Gas pH (7.35 - 7.45 PH) 7.27 *L 7.16 *L pCO2 (35 - 45 TORR) 67 *H 84 *H pO2 (80 - 100 TORR) 91 72 L HCO3 (21 - 28 MEQ/L) 30 H 29 H ABG O2 Sat (Measured) (>96.0 %) 95.0 L 93.0 L P-50 (Temp Corrected) YES YES Carboxyhemoglobin (1.5 - 5.0 %) 1.1 L 1.4 L O2 Concentration % 35% 2L Temperature (97.0 - 100.0 FARH) 97.7 97.7 Respiration Rate (BPM) 28 O2 Delivery Method BIPAP NC Vent Mode ST Expiratory Pressure (CM H2O P) 6 Inspiratory Pressure (CM H2O P) 24 Chemistry Sodium (137 - 145 mmol/L) 147 H Potassium (3.5 - 5.1 mmol/L) 5.0 Chloride (98 - 107 mmol/L) 106 Carbon Dioxide (22 - 30 mmol/L) 28 Anion Gap (5 - 16) 13 BUN (9 - 20 mg/dL) 50 H Creatinine (0.7 - 1.2 mg/dL) 1.8 H Estimated GFR (>60 ml/min) 37 L BUN/Creatinine Ratio (7 - 25 %) 27.8 H Hematology CBC w Diff Cancelled WBC Cancelled RBC Cancelled Hgb Cancelled Hct Cancelled MCV Cancelled MCH Cancelled MCHC Cancelled RDW Cancelled Plt Count Cancelled MPV Cancelled Miscellaneous Phlebotomy Draw Site LEFT RADIAL RIGHT RADIAL 11/10 11/10 11/10 0755 0615 0600 Chemistry Sodium (137 - 145 mmol/L) 146 H Cancelled Potassium (3.5 - 5.1 mmol/L) 4.8 Cancelled Chloride (98 - 107 mmol/L) 105 Cancelled Carbon Dioxide (22 - 30 mmol/L) 30 Cancelled Anion Gap (5 - 16) 11 Cancelled BUN (9 - 20 mg/dL) 51 H Cancelled Creatinine (0.7 - 1.2 mg/dL) 1.8 H Cancelled Estimated GFR (>60 ml/min) 37 L BUN/Creatinine Ratio (7 - 25 %) 28.3 H Cancelled Troponin I (<0.11 ng/ml) 0.04 Hematology CBC w Diff NO MAN DIFF REQ WBC (4.8 - 10.8 /CUMM) 6.7 RBC (4.70 - 6.10 /CUMM) 3.95 L Hgb (14.0 - 18.0 G/DL) 9.8 L Hct (42 - 52 %) 32.2 L MCV (80.0 - 94.0 FL) 81.6 MCH (27.0 - 31.0 PG) 24.9 L MCHC (33.0 - 37.0 G/DL) 30.5 L RDW (11.5 - 14.5 %) 18.9 H Plt Count (130 - 400 /CUMM) 208 MPV (7.4 - 10.4 FL) 9.3 Gran % (42.2 - 75.2 %) 88.6 H Lymphocytes % (20.5 - 51.1 %) 8.4 L Monocytes % (1.7 - 9.3 %) 2.0 Eosinophils % (0 - 5 %) 0.7 Basophils % (0.0 - 2.0 %) 0.3 Absolute Granulocytes (1.4 - 6.5 /CUMM) 5.9 Absolute Lymphocytes (1.2 - 3.4 /CUMM) 0.6 L Absolute Monocytes (0.10 - 0.60 /CUMM) 0.1 Absolute Eosinophils (0.0 - 0.7 /CUMM) 0 Absolute Basophils (0.0 - 0.2 /CUMM) 0 11/09 11/09 1518 1330 Chemistry Lactic Acid Cancelled Urines Urine Color (YEL,AMB,STR) YEL Urine Clarity (CLEAR) HAZY H Urine pH (5.0 - 8.0) 6.5 Ur Specific [place] (1.001 - 1.035) 1.025 Urine Protein (NEG,<30 MG/DL) 100 H Urine Ketones (NEG) NEG Urine Nitrite (NEG) POS H Urine Bilirubin (NEG) NEG Urine Urobilinogen (0.1 - 1.0 EU/dl) 0.2 Ur Leukocyte Esterase (NEG) MOD H Ur Microscopic SEDIMENT EXAMINED Urine RBC (0 - 5 /HPF) 10-15 H Urine WBC (0 - 2 /HPF) 25-50 H Ur Epithelial Cells (NONE,FEW) RARE Urine Bacteria (NEG/NONE) MANY H Urine Hemoglobin (NEG) MOD H Urine Glucose (N MG/DL) NEG 11/09 1235 Chemistry Sodium (137 - 145 mmol/L) 148 H Potassium (3.5 - 5.1 mmol/L) 4.7 Chloride (98 - 107 mmol/L) 104 Carbon Dioxide (22 - 30 mmol/L) 34 H Anion Gap (5 - 16) 9 BUN (9 - 20 mg/dL) 53 H Creatinine (0.7 - 1.2 mg/dL) 1.7 H Estimated GFR (>60 ml/min) 39 L BUN/Creatinine Ratio (7 - 25 %) 31.2 H Glucose (65 - 99 mg/dL) 92 Lactic Acid (0.7 - 2.1 mmol/L) 0.5 L Calcium (8.4 - 10.2 mg/dL) 9.0 Total Bilirubin (0.2 - 1.3 mg/dL) 0.3 AST (17 - 59 U/L) 15 L ALT (21 - 72 U/L) 23 Alkaline Phosphatase (< 127 U/L) 58 Troponin I (<0.11 ng/ml) 0.04 For-B-Dujrfodfixs Pept (<125 pg/mL) 7650 H Total Protein (6.3 - 8.2 g/dL) 6.8 Albumin (3.5 - 5.0 g/dL) 3.4 L Globulin (1.9 - 4.2 gm/dL) 3.4 Albumin/Globulin Ratio (1.1 - 2.2 %) 1.0 L Coagulation PT (9.4 - 12.5 SEC) 12.1 INR (0.90 - 1.17) 1.15 APTT (25 - 37 SEC) 33 Hematology CBC w Diff NO MAN DIFF REQ WBC (4.8 - 10.8 /CUMM) 6.0 RBC (4.70 - 6.10 /CUMM) 3.86 L Hgb (14.0 - 18.0 G/DL) 9.6 L Hct (42 - 52 %) 30.4 L MCV (80.0 - 94.0 FL) 78.8 L MCH (27.0 - 31.0 PG) 24.8 L MCHC (33.0 - 37.0 G/DL) 31.5 L RDW (11.5 - 14.5 %) 18.4 H Plt Count (130 - 400 /CUMM) 221 MPV (7.4 - 10.4 FL) 9.0 Gran % (42.2 - 75.2 %) 73.0 Lymphocytes % (20.5 - 51.1 %) 21.2 Monocytes % (1.7 - 9.3 %) 3.6 Eosinophils % (0 - 5 %) 1.1 Basophils % (0.0 - 2.0 %) 1.1 Absolute Granulocytes (1.4 - 6.5 /CUMM) 4.4 Absolute Lymphocytes (1.2 - 3.4 /CUMM) 1.3 Absolute Monocytes (0.10 - 0.60 /CUMM) 0.2 Absolute Eosinophils (0.0 - 0.7 /CUMM) 0.1 Absolute Basophils (0.0 - 0.2 /CUMM) 0.1 Diagnostic Data EKG Results EKG tracings and apparently reviewed, and reveals normal sinus rhythm at 83 with premature atrial complexes, right bundle branch block, and left anterior fascicular block CXR Results Chest x-ray: Improved aeration of the left lung base. Pulmonary venous congestion, unchanged. No interstitial edema. Low lung volumes with multifocal subsegmental atelectasis. Foci of superimposed consolidation in the right perihilar region and left retrocardiac region remains possible. Other Results Head CT: No evidence for acute intracranial injury. Stable age-appropriate appearance of the brain. Echocardiogram 09/05/14: Technically dificult and limiited study. Mild concentric left ventricular hypertrophy. Normal left ventricular ejection fraction visually estimated at >65 %. Mild left atrial dilatation. Mild thickening/calcification of the mitral valve leaflets. Focal thickening of the aortic valve cusps. No aortic stenosis. Right ventricular systolic pressure estimated to be at upper limits of normal at 30-35 mmHg. Upper normal size aortic root. Assessment/Plan Assessment/Plan The patient is a 77-year-old male with history of severe COPD, paroxysmal atrial fibrillation, chronic kidney disease, diastolic heart failure presented with acute hypercapnic respiratory failure. The patient is obtunded. Chest x-ray reveals evidence of possible pneumonia. Troponin levels are negative 2. The patient is currently in sinus rhythm. Recommendations: * IV antibiotic therapy for possible pneumonia * BiPAP as per pulmonary * Monitor on telemetry for atrial fibrillation or other arrhythmias * Echocardiogram to evaluate cardiac function Consult Acknowledgment - Thank you for your consult request.
[2017-11-10 22:36] VITALS: BP 100/60
--- NOTE | 2017-11-11 07:13 | PN- Housestaff ---
Amber TEAGUE,[facility] 11/11/17 0713: Subjective Follow-up For: Acute hypercapnic hypoxic respiratory failure Aspiration pneumonia Tele-Events Since Last Visit: Sinus bradycardia Heart rate 42-57. Subjective: Patient looks more alert and awake this morning, and in no acute distress. States he wants to drink bandar zack. Review of Systems Constitutional: Reports: no symptoms. Cardiovascular: Reports: no symptoms. Respiratory: Reports: no symptoms. Objective Last 24 Hrs of Vital Signs/I&O Vital Signs Date Time Temp Pulse Resp B/P B/P Pulse O2 O2 Flow FiO2 Mean Ox Delivery Rate 11/11 1147 Nasal 2.0L Cannula 11/11 0053 65 97 11/11 0000 BIPAP 35% 11/10 2236 98.0 59 20 100/60 95 11/10 1600 97 BIPAP 35% 11/10 1457 97.3 57 20 108/60 96 Intake & Output 11/11 1600 11/11 0800 11/11 0000 Intake Total 450 0 Output Total 1450 Balance 450 -1450 Intake, IV 450 Intake, Oral 0 Number 1 Bowel Movements Output, Urine 1450 Physical Exam General Appearance: Alert, Cooperative, No Acute Distress, Mild Distress Skin: No Rashes, No Breakdown HEENT: Atraumatic, PERRLA, EOMI, Dry Mucous membranes Cardiovascular: Regular Rate, Normal S1, Normal S2 Lungs: Normal Air Movement Abdomen: Normal Bowel Sounds, Soft, No Tenderness Extremities: No Clubbing, No Cyanosis, No Edema Current Medications: Current Medications Sig/Frandy Start time Last Medication Dose Route Stop Time Status Admin Acetaminophen 650 MG Q6P PRN 11/09 1930 AC PO Ampicillin Sodium/ 1,500 MG Q6H 11/10 2300 AC 11/11 Sulbactam Sodium IV 1146 Sodium Chloride 100 ML Ampicillin Sodium/ 1,500 MG Q6H 11/10 1329 DC 11/10 Sulbactam Sodium IV 1648 Sodium Chloride 100 ML Dextrose/Water 1,000 ML ONCE ONE 11/10 1430 DC 11/10 IV 11/11 1029 1512 Divalproex Sodium 125 MG TID 11/09 2199 11/09 PO 2149 Furosemide 40 MG .STK-MED ONE 11/10 1402 DC IV 11/10 1403 Furosemide 20 MG ONCE ONE 11/10 1400 DC 11/10 IV 11/10 1401 1408 Gabapentin 300 MG BID 11/09 2199 AC 11/09 PO 2148 Guaifenesin 10 ML Q6P PRN 11/09 193 AC PO Heparin Sodium 5,000 UNIT Q8 11/09 2199 AC 11/11 (Porcine) SC 0555 Lidocaine 1 PAT DAILY 11/10 1000 AC 11/11 EXT 0900 Mirtazapine 30 MG QPM 11/09 2199 AC 11/09 PO 2148 Naloxone HCl 0.4 MG ONCE ONE 11/10 1345 DC 11/10 IV 11/10 1346 1349 Nystatin 1 YOCASTA TID PRN 11/10 0230 AC 11/10 TOP 0509 Trazodone HCl 50 MG BID 11/09 2199 AC 11/09 PO 2148 Trazodone HCl 25 MG TID PRN 11/09 1944 AC PO Last 24 Hrs of Lab/Aurelio Results Last 24 Hrs of Labs/Mics: Laboratory Tests 11/11/17 0636: Anion Gap 8, Estimated GFR 37 L, BUN/Creatinine Ratio 26.1 H, CBC w Diff NO MAN DIFF REQ, RBC 3.35 L, MCV 79.3 L, MCH 24.7 L, MCHC 31.1 L, RDW 17.9 H, MPV 10.4, Gran % 76.2 H, Lymphocytes % 14.8 L, Monocytes % 5.2, Eosinophils % 3.3, Basophils % 0.5, Absolute Granulocytes 3.4, Absolute Lymphocytes 0.7 L, Absolute Monocytes 0.2, Absolute Eosinophils 0.1, Absolute Basophils 0 11/10/17 1440: pH 7.27 *L, pCO2 67 *H, pO2 91, HCO3 30 H, ABG O2 Sat (Measured) 95.0 L, P-50 (Temp Corrected) YES, Carboxyhemoglobin 1.1 L, O2 Concentration % 35%, Temperature 97.7, Respiration Rate 28, O2 Delivery Method BIPAP, Vent Mode ST, Expiratory Pressure 6, Inspiratory Pressure 24, Phlebotomy Draw Site LEFT RADIAL Assessment/Plan Assessment: 77 YO M with a PMH of dementia, hearing impairment, unable to give history, COPD not on home oxygen, diastolic CHF, CKD, paroxysmal A. fib not on anticoagulation (was on amiodarone), BPH, chronic back pain, chronic indwelling catheter, anemia , gout, anxiety, depression, and morbid obesity sent from [facility] for noncompliance with oxygen and desaturation to 80s at the facilty. A/P 1. Acute hypercapnic hypoxic respiratory failure; - Patient is on 2 L of oxygen through nasal cannula saturating in 90s. - Will continue BiPAP at night. - Continue IV Unasyn for aspiration pneumonia. - Repeat CBC and BEP in a.m. - Head CT done yesterday was negative for any acute intracranial pathology, also normal pupils (no miosis) noted on exam today. 2. ??Acute diastolic heart failure; elevated proBNP with chest x-ray showing vascular congestion but no interstitial edema. - Patient received 1 dose of IV Lasix yesterday. 3. Hypernatremia; - Sodium level 146 today. - Continue to monitor. 4. Swallow evaluation done, recommend starting the patient on pure/ regular thin diet. 5. Chronic medical conditions; - Will continue home medications. CODE STATUS changed from full code to DNR/DNI after discussion with the . DVT prophylaxis; subcutaneous heparin Patient is DNR/DNI. Problem List: 1. Acute hypercapnic respiratory failure Pain Ratin Pain Location: None Pain Goal: Remain pain free Pain Plan: Pain pathway Tomorrow's Labs & Rationales: None Joshua TEAGUE,Mirela 11/11/17 1354: Attending MD Review Statement Attending Statement Attending MD Statement: examined this patient, discuss w/resident/PA/WAREHOUSE CHECKER, agreed w/resident/PA/WAREHOUSE CHECKER, reviewed EMR data (avail), discussed with nursing, reviewed images Attending Assessment/Plan: Patient is markedly improved and much more awake and alert. He passed a swallow eval for pured diet. His O2 requirement has also decreased. His repeat head CT was negative. We are treating him for acute hypercapnic respiratory failure with acute hypercapnic respiratory acidosis and likely aspiration pneumonia. If all of his cultures remain negative, will stop the Unasyn given the lack of fever or white count. Although the group home staff did report low O2 sat and thick mucus so will watch closely.
--- NOTE | 2017-11-11 07:49 | PN- Pulmonary ---
Subjective HPI/Critical Care Issues: Patient is awake alert mental status dramatically improved as his respiratory acidosis Objective Current Medications: Current Medications Sig/Frandy Start time Last Medication Dose Route Stop Time Status Admin Acetaminophen 650 MG Q6P PRN 11/09 1930 AC PO Ampicillin Sodium/ 1,500 MG Q6H 11/10 2300 AC 11/11 Sulbactam Sodium IV 0558 Sodium Chloride 100 ML Ampicillin Sodium/ 1,500 MG Q6H 11/10 1329 DC 11/10 Sulbactam Sodium IV 1648 Sodium Chloride 100 ML Dextrose/Water 1,000 ML ONCE ONE 11/10 1430 AC 11/10 IV 11/11 1029 1512 Divalproex Sodium 125 MG TID 11/09 2200 AC 11/09 PO 2149 Furosemide 40 MG .STK-MED ONE 11/10 1402 DC IV 11/10 1403 Furosemide 20 MG ONCE ONE 11/10 1400 DC 11/10 IV 11/10 1401 1408 Gabapentin 300 MG BID 11/09 2200 AC 11/09 PO 2149 Guaifenesin 10 ML Q6P PRN 11/09 1930 AC PO Heparin Sodium 5,000 UNIT Q8 11/09 2200 AC 11/11 (Porcine) SC 0555 Lidocaine 1 PAT DAILY 11/10 1000 AC EXT Mirtazapine 30 MG QPM 11/09 2200 AC 11/09 PO 2149 Naloxone HCl 0.4 MG ONCE ONE 11/10 1345 DC 11/10 IV 11/10 1346 1349 Nystatin 1 YOCASTA TID PRN 11/10 0230 AC 11/10 TOP 0509 Sodium Chloride 1,000 ML Q13H 11/09 1615 DC 11/09 IV 2150 Trazodone HCl 50 MG BID 11/09 220 AC 11/09 PO 2149 Trazodone HCl 25 MG TID PRN 11/09 1945 AC PO Vital Signs & I&O Last 24 Hrs of Vitals and I&O: Vital Signs Date Time Temp Pulse Resp B/P B/P Pulse O2 O2 Flow FiO2 Mean Ox Delivery Rate 11/11 0053 65 97 11/11 0000 BIPAP 35% 11/10 2236 98.0 59 20 100/60 95 11/10 1600 97 BIPAP 35% 11/10 1457 97.3 57 20 108/60 96 11/10 1242 75 95 11/10 0800 92 Nasal 2.0L Cannula Intake & Output 11/11 0800 11/11 0000 11/10 1600 Intake Total 0 375 Output Total 1450 125 Balance -1450 250 Intake, IV 375 Intake, Oral 0 Number 1 0 Bowel Movements Output, Urine 1450 125 Oxygen saturation 35% 97% exam of his chest shows occasional rhonchi cardiac exam shows regular S1 and S2 without murmurs arterial blood gases are markedly improved Impression/Plan Impression/Plan Impression/Plan: 77-year-old with COPD admitted with obtundation and found to have acute hypercapnic respiratory failure. In view of pinpoint pupils Narcan was administered without effect. His minute ventilation on current settings was 7 L is IPAP was increased to 24 with improvement in minute ventilation to 15 L. Chest x-ray suggested possibility of healthcare associated pneumonia. Markedly elevated BNP suggests a element of congestive heart failure. Mental status markedly improved with correction of acute hypercapnic respiratory failure. Patient is being treated for presumed bacterial hospital-acquired pneumonia. Recommendations: Taper FiO2 his saturations allow continue BiPAP at night follow-up sputum cultures change in CODE STATUS noted
[2017-11-11 08:15] LABS: ABSOLUTE BASOPHIL COUNT 0 /CUMM (0.0-0.2); ABSOLUTE EOSINOPHIL COUNT 0.1 /CUMM (0.0-0.7); ABSOLUTE GRANULOCYTE CT 3.4 /CUMM (1.4-6.5); ABSOLUTE LYMPH COUNT 0.7 /CUMM (1.2-3.4); ABSOLUTE MONOCYTE COUNT 0.2 /CUMM (0.10-0.60); BASOPHIL % 0.5 % (0.0-2.0); EOSINOPHIL % 3.3 % (0-5); GRANULOCYTE % 76.2 % (42.2-75.2); MEAN CORPUSCULAR HGB 24.7 PG (27.0-31.0); MEAN CORPUSCULAR HGB CONC 31.1 G/DL (33.0-37.0); MEAN CORPUSCULAR VOLUME 79.3 FL (80.0-94.0); MEAN PLATELET VOLUME 10.4 FL (7.4-10.4); PLATELET COUNT 177 /CUMM (130-400); RBC DISTRIBUTION WIDTH 17.9 % (11.5-14.5); RED BLOOD CELL CT 3.35 /CUMM (4.70-6.10); WHITE BLOOD CELL COUNT 4.5 /CUMM (4.8-10.8)
[2017-11-11 08:37] LABS: HEMATOCRIT 26.6 % (42-52)
[2017-11-11 14:23] VITALS: BP 150/90
--- NOTE | 2017-11-11 17:00 | Transfer of Care Summary ---
Hospital Course Course Hospital Course: Mr. Paulino is a 77-year-old gentleman with medical history significant for COPD, dementia, heart failure with preserved ejection fraction, A. dale not on anticoagulation(due to high fall and bleeding risk) was sent from the [facility] for episodes of desaturation. He was noted to be agitated in the snf, pulled his nasal canula and was also noted to have thick mucus per the snf staff. - Patient was initially started on IV fluids for dehydration and mild hypernatremia. - On 11/10/16 was found to be very somnolent and not arousable even with sternal rub with pinpoint pupils on examination. Blood gas was obtained which showed acute hypercapnic respiratory failure. He was started on BiPAP and Pulm consult was obrained. Repeat ABGs obtained later while on BiPAP showed improved pH and PCO2. - Patient was also started on IV Unasyn for aspiration Pneumonia given thick mucus production per the snf staff. - 1 dose of IV lasix given for concerns of acute diastolic heart failure given the elevated BNP and Chest x-ray being read as interstitial edema. - Head CT was also obtained to rule out any intracranial pathology given pinpoint pupils non-responsive to Narcan. - Patient was kept NPO for swallow eval. Significant Procedures: CT HEAD WO IV CONTRAST IMPRESSION: No evidence for acute intracranial injury. Stable age-appropriate appearance of the brain. XRY-PORTABLE CHEST XRAY IMPRESSION: Stable enlarged cardiac silhouette with retrocardiac opacification. Mild interstitial prominence likely ambulatory services representative of mild vascular congestion. The appearance is concerning for a left lower lobe infiltrate. Recommendation is for a followup chest series to be obtained following treatment and/or resolution of symptoms to assure resolution of this appearance. XRY-PORTABLE CHEST XRAY IMPRESSION: Improved aeration of the left lung base. Pulmonary venous congestion, unchanged. No interstitial edema. Low lung volumes with multifocal subsegmental atelectasis. Foci of superimposed consolidation in the right perihilar region and left retrocardiac region remains possible. Assessment/Plan: - Patient currently on 2L of O2 via nasal canula. - Continue BiPAP at night. - Passed swallow eval; Started on Puree/Regular thin diet today. - F/U cultures; if all of his cultures remain negative, will stop the Unasyn given the lack of fever or white count and monitor off antibiotics. - Repeat labs in am. Patient is markedly improved and much more awake and alert. He passed a swallow eval for pured diet. His O2 requirement has also decreased. His repeat head CT was negative. We are treating him for acute hypercapnic respiratory failure with acute hypercapnic respiratory acidosis and likely aspiration pneumonia. If all of his cultures remain negative, will stop the Unasyn given the lack of fever or white count. Although the snf staff did report low O2 sat and thick mucus so will watch closely.
[2017-11-12 06:00] VITALS: BP 144/76
--- NOTE | 2017-11-12 08:07 | PN- Pulmonary ---
Subjective HPI/Critical Care Issues: Patient is awake alert comfortable on room air feeding himself Objective Current Medications: Current Medications Sig/Frandy Start time Last Medication Dose Route Stop Time Status Admin Acetaminophen 650 MG Q6P PRN 11/09 1929 AC PO Ampicillin Sodium/ 1,500 MG Q6H 11/10 2300 AC 11/12 Sulbactam Sodium IV 0606 Sodium Chloride 100 ML Dextrose/Water 1,000 ML ONCE ONE 11/10 1430 DC 11/10 IV 11/11 1029 1512 Divalproex Sodium 125 MG TID 11/09 220 AC 11/12 PO 0747 Gabapentin 300 MG BID 11/09 220 AC 11/12 PO 0747 Guaifenesin 10 ML Q6P PRN 11/09 193 AC PO Heparin Sodium 5,000 UNIT Q8 11/09 2199 AC 11/11 (Porcine) SC 2130 Lidocaine 1 PAT DAILY 11/10 1000 AC 11/12 EXT 0747 Mirtazapine 30 MG QPM 11/09 220 AC 11/11 PO 2130 Nystatin 1 YOCASTA TID PRN 11/10 0230 AC 11/10 TOP 0509 Trazodone HCl 50 MG BID 11/09 2199 AC 11/12 PO 0747 Trazodone HCl 25 MG TID PRN 11/09 1945 AC PO Vital Signs & I&O Last 24 Hrs of Vitals and I&O: Vital Signs Date Time Temp Pulse Resp B/P B/P Pulse O2 O2 Flow FiO2 Mean Ox Delivery Rate 11/12 0600 98.4 67 20 144/76 92 Room Air 11/11 1423 98.8 60 22 150/90 86 Room Air 11/11 1322 Nasal 2.0L Cannula 11/11 1147 Nasal 2.0L Cannula Intake & Output 11/12 1600 11/12 0800 11/12 0000 Intake Total 800 240 Output Total 700 600 Balance 100 -360 Intake, IV 300 120 Intake, Oral 500 120 Number 0 Bowel Movements Output, Urine 700 600 Oxygen saturation 92% exam of his chest shows diminished breath sounds are no wheezes cardiac exam shows regular S1 and S2 without murmurs Impression/Plan Impression/Plan Impression/Plan: 77-year-old with COPD admitted with obtundation and found to have acute hypercapnic respiratory failure. He is clinically improved and appears at baseline Recommendations: Complete course of antibiotics likely can go to oral meds. No further pulmonary suggestions please call for other issues
[2017-11-12 08:33] LABS: ABSOLUTE BASOPHIL COUNT 0 /CUMM (0.0-0.2); ABSOLUTE EOSINOPHIL COUNT 0.2 /CUMM (0.0-0.7); ABSOLUTE GRANULOCYTE CT 3.6 /CUMM (1.4-6.5); ABSOLUTE MONOCYTE COUNT 0.3 /CUMM (0.10-0.60); BASOPHIL % 0.9 % (0.0-2.0); EOSINOPHIL % 3.8 % (0-5); GRANULOCYTE % 69.5 % (42.2-75.2); HEMATOCRIT 28.3 % (42-52); MEAN CORPUSCULAR HGB 24.7 PG (27.0-31.0); MEAN CORPUSCULAR HGB CONC 31.6 G/DL (33.0-37.0); MEAN CORPUSCULAR VOLUME 78.1 FL (80.0-94.0); MEAN PLATELET VOLUME 10.1 FL (7.4-10.4); PLATELET COUNT 166 /CUMM (130-400); RBC DISTRIBUTION WIDTH 18.7 % (11.5-14.5); RED BLOOD CELL CT 3.62 /CUMM (4.70-6.10); WHITE BLOOD CELL COUNT 5.1 /CUMM (4.8-10.8)
--- NOTE | 2017-11-12 08:41 | PN- Housestaff ---
Julio César TEAGUE,Fantasma 11/12/17 0840: Subjective Follow-up For: Acute hypercapnic hypoxic respiratory failure Aspiration pneumonia Subjective: patient refused bipap overnight was in restraints overnight for pulling out lines, discontinued this morning on puree/thin, possible aspiration hoang in place difficult to understand speech edentulous Review of Systems Constitutional: Reports: see HPI. Objective Last 24 Hrs of Vital Signs/I&O Vital Signs Date Time Temp Pulse Resp B/P B/P Pulse O2 O2 Flow FiO2 Mean Ox Delivery Rate 11/12 08 Room Air 11/12 0600 98.4 67 20 144/76 92 Room Air 11/11 1423 98.8 60 22 150/90 86 Room Air 11/11 1322 Nasal 2.0L Cannula Intake & Output 11/12 1600 11/12 0800 11/12 0000 Intake Total 800 240 Output Total 700 600 Balance 100 -360 Intake, IV 300 120 Intake, Oral 500 120 Number 0 Bowel Movements Output, Urine 700 600 Patient 162.84 kg Weight Physical Exam General Appearance: Alert, Oriented X3, Cooperative, No Acute Distress, morbidly obese Cardiovascular: Regular Rate, Normal S1, Normal S2, No Murmurs Lungs: Clear to Auscultation, anteriorly Abdomen: Normal Bowel Sounds, Soft, No Tenderness, No Masses, obese, + hoang Extremities: No Clubbing, No Cyanosis, No Edema, Normal Pulses Current Medications: Current Medications Sig/Frandy Start time Last Medication Dose Route Stop Time Status Admin Acetaminophen 650 MG Q6P PRN 11/09 1929 AC PO Ampicillin Sodium/ 1,500 MG Q6H 11/10 2300 DC 11/12 Sulbactam Sodium IV 1033 Sodium Chloride 100 ML Divalproex Sodium 125 MG TID 11/09 2199 AC 11/12 PO 0747 Gabapentin 300 MG BID 11/09 2199 AC 11/12 PO 0747 Guaifenesin 10 ML Q6P PRN 11/09 193 AC PO Heparin Sodium 5,000 UNIT Q8 11/09 2199 AC 11/12 (Porcine) SC 1251 Lidocaine 1 PAT DAILY 11/10 1000 AC 11/12 EXT 0747 Mirtazapine 30 MG QPM 11/09 2199 AC 11/11 PO 2130 Nystatin 1 YOCASTA TID PRN 11/10 0230 AC 11/10 TOP 0509 Trazodone HCl 50 MG BID 11/09 2199 AC 11/12 PO 0747 Trazodone HCl 25 MG TID PRN 11/09 1944 AC PO Last 24 Hrs of Lab/Aurelio Results Last 24 Hrs of Labs/Mics: Laboratory Tests 11/12/17 0715: Anion Gap 10, Estimated GFR 42 L, BUN/Creatinine Ratio 22.5, CBC w Diff NO MAN DIFF REQ, RBC 3.62 L, MCV 78.1 L, MCH 24.7 L, MCHC 31.6 L, RDW 18.7 H, MPV 10.1, Gran % 69.5, Lymphocytes % 19.0 L, Monocytes % 6.8, Eosinophils % 3.8, Basophils % 0.9, Absolute Granulocytes 3.6, Absolute Lymphocytes 1.0 L, Absolute Monocytes 0.3, Absolute Eosinophils 0.2, Absolute Basophils 0 Assessment/Plan Assessment: 77 year old male with a PMH of dementia, hearing impairment, COPD not on home oxygen, diastolic CHF, CKD, paroxysmal atrial fibrillation not on anticoagulation (was on amiodarone), BPH, chronic back pain, chronic indwelling catheter, anemia, gout, anxiety, depression, and morbid obesity sent from [facility] for noncompliance with oxygen and hypoxia at the facilty. 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 Chronic hoang Urine culture positive for GNR Patient was hypernatremic and treated with D5W, appears euvolemic clinically HTN: Was on norvasc? Afib: Was on amiodarone? No anticoagulation or rate control meds currently Depression: Depakote, remeron, trazodone Was on Zoloft? Pure/thin diet DVT ppx-heparin 5000 units subcutaneous Q8H DNR/DNI Problem List: 1. Hypoxia 2. Acute hypercapnic respiratory failure 3. [id number]-[id number] kidney injury Pain Ratin Pain Location: n/a Pain Goal: Pain 4 or less Pain Plan: prn Tomorrow's Labs & Rationales: none Michoacano Arias MD 11/12/17 1410: Attending MD Review Statement Attending Statement Attending MD Statement: examined this patient, discuss w/resident/PA/LAUNDRY AGENT, agreed w/resident/PA/LAUNDRY AGENT, reviewed EMR data (avail) Attending Assessment/Plan: Patient's mental status is improved today. He is refusing BiPAP. He is hemodynamically stable. Will continue current medications with likely plan to discharge back to [facility] tomorrow. Will clarify Amiodarone, Amlodipine tomorrow.
[2017-11-12 13:44] VITALS: BP 118/70
--- NOTE | 2017-11-12 19:28 | ECHOCARDIOGRAM REPORT ---
MARCY LOMELI Age: 77 : 1940 Gender: M Exam Date: 11/11/2017 15:45 Exam Location: 1 [address] Ht (in): 68 Wt (lb): 359 BSA: 2.89 BP: 116 / 60 Ordering Physician: Jeanette Stuart MD Referring Physician: Kamari Luther MD Technologist: Nikki Granger INES Room Number: [id number] Indications: HEART FAILURE Rhythm: Sinus Technical Quality: Technically difficult study FINDINGS Left Ventricle Normal size left ventricle. Mild concentric left ventricular hypertrophy. Normal left ventricular ejection fraction visually estimated at >60 %. No obvious regional wall motion abnormalities. Right Ventricle Normal right ventricular size and function. Right Atrium Normal right atrial size. Left Atrium Mild left atrial dilatation. Mitral Valve Mild mitral annular calcification. Trace mitral regurgitation. Aortic Valve Diffuse thickening of the aortic valve cusps with reduced excursion. Mild aortic stenosis. Trace aortic regurgitation. Mildly dilated ascending aorta. Tricuspid Valve Tricuspid valve not well visualized, grossly normal. Mild tricuspid regurgitation. No evidence of pulmonary hypertension. Pulmonic Valve Pulmonic valve not well visualized, grossly normal. Pericardium No pericardial effusion. Great Vessels Normal size aortic root. CONCLUSIONS Normal size left ventricle. Mild concentric left ventricular hypertrophy. Normal left ventricular ejection fraction visually estimated at >60 Mild mitral annular calcification. Trace mitral regurgitation. Mild aortic stenosis. Mildly dilated ascending aorta. Mild tricuspid regurgitation. Kamari Luther M.D. (Electronically Signed) Final Date: 12 November 2017 19:27 MEASUREMENTS (Male / Female) Normal Values 2D ECHO LV Diastolic Diameter PLAX 5.1 cm 4.2 - 5.9 / 3.9 - 5.3 cm LV Systolic Diameter PLAX 3.3 cm 2.1 - 4.0 cm LV Fractional Shortening PLAX 35.3 % 25 - 46 % LV Ejection Fraction 2D Teich 64.4 % IVS Diastolic Thickness 1.4 cm LVPW Diastolic Thickness 1.4 cm LV Relative Wall Thickness 0.5 LVOT Diameter 1.8 cm Aortic Root Diameter 3.5 cm LA Systolic Diameter LX 4.8 cm 3.0 - 4.0 / 2.7 - 3.8 cm Ascending Aorta Diameter 4.1 cm DOPPLER AV Peak Velocity 240.0 cm/s AV Peak Gradient 23.0 mmHg AV Mean Velocity 150.0 cm/s AV Mean Gradient 11.0 mmHg AV Velocity Time Integral 53.8 cm LVOT Peak Velocity 82.7 cm/s LVOT Peak Gradient 2.7 mmHg LVOT Mean Velocity 56.9 cm/s LVOT Mean Gradient 1.0 mmHg LVOT Velocity Time Integral 18.6 cm LVOT Stroke Volume 47.3 cm AV Area Cont Eq vti 0.9 cm AV Area Cont Eq pk 0.9 cm MV Peak Velocity 106.0 cm/s MV Peak Gradient 4.5 mmHg MV Mean Velocity 51.1 cm/s MV Mean Gradient 1.0 mmHg Mitral E Point Velocity 84.5 cm/s Mitral A Point Velocity 76.2 cm/s Mitral E to A Ratio 1.1 MV PHT Velocity 115.0 cm/s MV Deceleration Drew 480.0 cm/s MV Pressure Half Time 71.9 ms MV Area PHT 3.1 cm MV Deceleration Time 299.0 ms TR Peak Velocity 247.0 cm/s TR Peak Gradient 24.4 mmHg Right Atrial Pressure 5.0 mmHg Pulmonary Artery Systolic Pressu 29.4 mmHg Right Ventricular Systolic Press 29.4 mmHg PV Peak Velocity 96.5 cm/s PV Peak Gradient 3.7 mmHg PV Mean Velocity 65.5 cm/s PV Mean Gradient 2.0 mmHg PV Velocity Time Integral 18.4 cm LV E' Lateral Velocity 4.3 cm/s Mitral E to LV E' Lateral Ratio 19.7 LV E' Septal Velocity 3.2 cm/s Mitral E to LV E' Septal Ratio 26.2
[2017-11-12 23:34] VITALS: BP 120/70
[2017-11-13 07:49] VITALS: BP 116/72
--- NOTE | 2017-11-13 08:46 | PN- Housestaff ---
Julio César TEAGUE,Fantasma 11/13/17 0846: Subjective Follow-up For: Acute hypercapnic hypoxic respiratory failure Aspiration pneumonia Subjective: patient refused bipap overnight again treated for aspiration pneumonia no complains of cough afebrile Review of Systems Constitutional: Reports: see HPI. Objective Last 24 Hrs of Vital Signs/I&O Vital Signs Date Time Temp Pulse Resp B/P B/P Pulse O2 O2 Flow FiO2 Mean Ox Delivery Rate 11/13 1414 98.7 91 20 120/68 98 11/13 0749 97.8 78 24 116/72 95 Room Air 11/13 0000 94 Room Air 11/12 2334 97.9 80 22 120/70 94 Room Air Intake & Output 11/13 1600 11/13 0800 11/13 0000 Intake Total 400 350 Output Total 200 1500 1500 Balance -200 -1100 -1150 Intake, IV 0 Intake, Oral 400 350 Number 1 Bowel Movements Output, Urine 200 1500 1500 Physical Exam General Appearance: Alert, Cooperative, No Acute Distress, obese Cardiovascular: Regular Rate, Normal S1, Normal S2, No Murmurs Lungs: Clear to Auscultation, Normal Air Movement Abdomen: Normal Bowel Sounds, Soft, No Tenderness, No Masses Extremities: No Clubbing, No Cyanosis, No Edema, Normal Pulses Current Medications: Current Medications Sig/Frandy Start time Last Medication Dose Route Stop Time Status Admin Acetaminophen 650 MG Q6P PRN 11/09 1929 AC PO Divalproex Sodium 125 MG TID 11/09 2199 AC 11/13 PO 1036 Gabapentin 300 MG BID 11/09 2199 AC 11/13 PO 1036 Guaifenesin 10 ML Q6P PRN 11/09 1929 AC PO Heparin Sodium 5,000 UNIT Q8 11/09 (Porcine) SC 1440 Lidocaine 1 PAT DAILY 11/10 1000 AC 11/13 EXT 1036 Mirtazapine 30 MG QPM 11/09 2199 AC 11/12 PO 2039 Nystatin 1 YOCASTA TID PRN 11/10 0230 AC 11/10 TOP 0509 Trazodone HCl 50 MG BID 11/09 2199 AC 11/13 PO 1036 Trazodone HCl 25 MG TID PRN 11/09 1945 AC PO Last 24 Hrs of Lab/Aurelio Results Last 24 Hrs of Labs/Mics: Laboratory Tests 11/13/17 0715: Anion Gap 12, Estimated GFR 45 L, BUN/Creatinine Ratio 17.3, Jhu-Z-Graefsqclny Pept 4750 H Assessment/Plan Assessment: 77 year old male with a PMH of dementia, hearing impairment, COPD not on home oxygen, diastolic CHF, CKD, paroxysmal atrial fibrillation not on anticoagulation, BPH, chronic back pain, chronic indwelling catheter, anemia, gout, anxiety, depression, and morbid obesity sent from [facility] for noncompliance with oxygen and hypoxia at the facilty. 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, avoid narcotics, consider discontinuing trazodone/ remeron Question of aspiration pneumonia, although no fever or leukocytosis Possible retrocardiac LLL infiltrate on cxr vs pulmonary vascular congestion Elevated probnp received a dose of lasix Discontinue antibiotics Consider adding diuretics if patient hypertensive Echo 2013 lvef wnl no diastolic dysfunction CKD stage III: Avoid nephrotoxins Renal function improved Chronic hoang Urine culture positive for GNR Patient was hypernatremic and treated with D5W, appears euvolemic clinically Afib: Continue amiodarone No anticoagulation from hematuria, anemia Depression: Depakote, remeron, trazodone Resume zoloft Pure/thin diet DVT ppx-heparin 5000 units subcutaneous Q8H DNR/DNI Problem List: 1. Acute hypercapnic respiratory failure 2. PNA (pneumonia) Pain Ratin Pain Location: n/a Pain Goal: Pain 4 or less Pain Plan: prn Tomorrow's Labs & Rationales: none, anticipated discharge Michoacano Arias MD 11/13/17 1120: Attending MD Review Statement Attending Statement Attending MD Statement: examined this patient, discuss w/resident/PA/CANCER CENTER DIRECTOR, agreed w/resident/PA/CANCER CENTER DIRECTOR, reviewed EMR data (avail)
--- NOTE | 2017-11-13 10:04 | Discharge Summary ---
Visit Information Visit Dates Admission Date: 11/09/17 Discharge Date: 11/13/17 Hospital Course Course Attending Physician: Michoacano Arias MD Primary Care Physician: Fredy Dodson MD Hospital Course: 77 year old male with a PMH of dementia, hearing impairment, COPD not on home oxygen, diastolic CHF, CKD, paroxysmal atrial fibrillation not on anticoagulation, BPH, chronic back pain, chronic indwelling catheter, anemia, gout, anxiety, depression, and morbid obesity sent from [facility] for noncompliance with oxygen and hypoxia at the facilty. #Acute hypoxemic hypercarbic respiratory failure: On admission ABG showed respiratory acidosis on BiPAP, improved on BiPAP however patient continuously refused using BiPAP. Most likely symptoms related to noncompliance with BiPAP. 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 For elevated probnp received a dose of lasix. #CKD stage III: Creatinine baseline is around 1.7, we avoided nephrotoxins medications. The patient has a chronic Fleming, urine culture was not significant for infection. On discharge creatinine was 1.5. #For all chronic conditions including HTN, Afib, and depression We continued all home medication including depakote, remeron, trazodone, norvasc, Zoloft and amiodarone. No anticoagulation or rate control meds on admission. Allergies: Coded Allergies: No Known Allergies (07/02/17) Disposition Summary Disposition Principal Diagnosis: Acute hypoxic hypercarbic respiratory failure Additional Diagnosis: Obstructive sleep apnea Hypertension Atrial fibrillation Depression Discharge Disposition: SNF Discharge Instructions General Discharge Information Code Status: Do Not Resucitate/Intubat Patient's Diet: Heart healthy diet, pure and regular thins Patient's Activity: As tolerated Follow-Up Instructions/Appts: Please follow-up with primary care doctor within 1-2 weeks Please follow-up with pc support specialist recommendations Medications at Discharge Discharge Medications: Continue taking these medications: Trazodone HCl (Trazodone HCl) 50 MG TABLET 0.5 Tablet ORAL TAKE AT BEDTIME Lidocaine (Aspercreme) 4 % ADH..PATCH 1 PATCH TRANSDERM DAILY Calcium Polycarbophil (Fibercon) 625 MG TABLET 1 Tablet ORAL TWICE DAILY as needed for CONSTIPATION Gabapentin (Gabapentin) 300 MG CAPSULE 1 Capsule ORAL TWICE DAILY Calcium Carbonate/Vitamin D3 (Caltrate 600 + D Tablet) 600 MG-800 TABLET 1 Tablet ORAL DAILY Mirtazapine (Remeron) 30 MG TABLET 0.5 Tablet ORAL Every night Acetaminophen (Acetaminophen) 325 MG TABLET 2 Tablet ORAL Every 6-8 Hours as Needed Naloxone HCl (Naloxone HCl) 0.4 MG/ML VIAL 1 Application In the nose NEEDED Sertraline HCl (Zoloft) 100 MG TABLET 1 Tablet ORAL DAILY Qty = 30 Amiodarone (Cordarone) 200 MG TAB 1 Tablet ORAL DAILY Qty = 30 Allopurinol (Allopurinol) 100 MG TABLET 1 Tablet ORAL DAILY Qty = 30 Amlodipine Besylate (Amlodipine Besylate) 5 MG TABLET 1 Tablet ORAL DAILY Qty = 30 Copies To: West TEAGUE,Fredy Pinto
[2017-11-13] MEDS ORDERED: AMIODARONE HCL200 M1 PO (10:47)
[2017-11-13] MEDS ORDERED: ZOLOFT100 M1 PO (10:47)
[2017-11-13] MEDS ORDERED: ALLOPURINOL100 M1 PO (10:48)
[2017-11-13] MEDS ORDERED: AMLODIPINE BESYL5 M1 PO (10:49)
--- NOTE | 2017-11-13 10:52 | Patient Discharge Instructions ---
Discharge Instructions General Discharge Information You were seen/treated for: hypercarbic hypoxic respiratory failure Acute Coronary Syndrome Inclusion Criteria At DC or during hospital stay patient has or had the following: ACS DIAGNOSIS No Discharge Core Measures Meds if any: Prescribed or Continued at Discharge Meds if any: NOT Prescribed or Continued at Discharge Congestive Heart Failure Inclusion Criteria At DC or during hospital stay patient has or had the following: CHF DIAGNOSIS No Discharge Core Measures Meds if any: Prescribed or Continued at Discharge Meds if any: NOT Prescribed or Continued at Discharge Cerebrovascular accident Inclusion Criteria At DC or during hospital stay patient has or had the following: CVA/TIA Diagnosis No Discharge Core Measures Meds if any: Prescribed or Continued at Discharge Meds if any: NOT Prescribed or Continued at Discharge Venous thromboembolism Inclusion Criteria VTE Diagnosis No VTE Type NONE VTE Confirmed by (Test) NONE Discharge Core Measures - Per Current guidelines, there needs to be overlap - treatment for the first 5 days of Warfarin therapy. - If discharged on Warfarin prior to 5 days of - overlap therapy, the patient will need to be - assessed for post discharge needs including - *Post discharge parental anticoagulation - *Warfarin and/or parental anticoagulation education - *Follow up date to check INR post discharge At least 5 days overlap therapy as Inpatient No Meds if any: Prescribed or Continued at Discharge Note: Overlap Therapy is Warfarin and Anticoagulant Meds if any: NOT Prescribed or Continued at Discharge
[2017-11-13 14:14] VITALS: BP 120/68
== END 2017-11-13 18:25 | DRG 177 ==
LOC: ERH 12:08 → 2NA 18:20 → 1NO 18:20 → ERHI 18:20 → ENRESERV 19:22 → ENTRNSPT 20:07 → EDTRNSPTSTS 20:16 → EDTRNSPT 20:16 → 1NO 20:32 → CMPTRNSPT 20:35 → 1NO 11-10 21:15 → ENTRNSPT 11-11 16:29 → EDTRNSPTSTS 11-11 16:34 → EDTRNSPT 11-11 16:34 → 2NA 11-11 16:45 → CMPTRNSPT 11-11 16:57 → 2NA 11-13 10:03 → ENPENDDIS 11-13 15:55 → 2NA 11-13 18:25
PROVIDERS: Internal Medicine; Physician Assistant Medical
DX: J69.0 Pneumonitis due to inhalation of food and vomit (principal); J96.01 Acute respiratory failure with hypoxia; J96.02 Acute respiratory failure with hypercapnia; N17.9 Acute kidney failure, unspecified; E87.0 Hyperosmolality and hypernatremia; I13.0 Hypertensive heart and chronic kidney disease with heart failure and stage 1 through stage 4 chronic kidney disease, or unspecified chronic kidney disease; F03.91 Unspecified dementia, unspecified severity, with behavioral disturbance; I50.32 Chronic diastolic (congestive) heart failure; Z68.43 Body mass index [BMI] 50.0-59.9, adult; F05 Delirium due to known physiological condition; E86.0 Dehydration; E66.01 Morbid (severe) obesity due to excess calories; R41.82 Altered mental status, unspecified; F91.8 Other conduct disorders; N40.1 Benign prostatic hyperplasia with lower urinary tract symptoms; N18.3 Chronic kidney disease, stage 3 (moderate); Z66 Do not resuscitate
CPT/HCPCS: 1NP; 2NAP; 36415; 71045; 81001; 82436; 87040; 87086; 87804; 87804-59; 93005; 93010; 93308; 93321; 96374; 96375; J0696; J1644; J1940; J2310; J7060

== ENCOUNTER 2017-11-16 18:31 | Inpatient (IN) | payer OTHER ==
[~2017-11-16] VITALS: Ht 172.7 cm; Wt 131.1 kg
[~2017-11-16 18:31] MED LIST changes: +ACETAMINOPHEN325 M2 PO; +ASPERCREME1 EACH TD; +CALTRATE 600 +1 EACH PO; +DEPAKOTE SPRIN125 M1 PO; +NALOXONE H0.4 MG/11 NAS; +REMERON30 M3 PO; +TUSSIN CF COUG118 M1 PO
--- NOTE | 2017-11-16 19:34 | ED AMS/SEIZURE/WEAK/DIZZY ---
History of Present Illness General Chief Complaint: Altered Mental Status Stated Complaint: FROM ECF FOR DECREASED LEVEL OF CONSCIOUSNESS Source: patient, old records, EMS Exam Limitations: clinical condition, dementia Vital Signs & Intake/Output Vital Signs & Intake/Output Vital Signs Date Time Temp Pulse Resp B/P B/P Pulse O2 O2 Flow FiO2 Mean Ox Delivery Rate 11/17 0031 54 26 120/70 95 BIPAP 11/17 0018 66 96 11/169 62 26 94/64 95 BIPAP 11/166 97.8 65 26 92/65 95 BIPAP 35% 11/16 2225 95.0 57 18 93/52 96 BIPAP 11/169 67 95 11/16 2011 97.8 65 26 127/60 94 BIPAP 35% 11/166 64 95 11/16 1942 95 Nasal 4.0L Cannula 11/16 1842 98.3 74 20 151/84 93 Nasal 3.0L Cannula ED Intake and Output 11/17 0000 11/16 1200 Intake Total Output Total 100 Balance -100 Output, Urine 100 Patient 300 lb Weight Weight Estimated Measurement Method Allergies Coded Allergies: No Known Allergies (07/02/17) Reconcile Medications Acetaminophen 325 MG TABLET 2 TAB PO Q6-8P PAIN CONTROL (Reported) Allopurinol 100 MG TABLET 1 TAB PO DAILY GOUT (Reported) Amiodarone (Cordarone) 200 MG TAB 1 TAB PO DAILY AFIB (Reported) Amlodipine Besylate 5 MG TABLET 1 TAB PO DAILY HTN (Reported) Calcium Carbonate/Vitamin D3 (Caltrate 600 + D Tablet) 600 MG-800 TABLET 1 TAB PO DAILY SUPPLEMENT (Reported) Calcium Polycarbophil (Fibercon) 625 MG TABLET 1 TAB PO BID PRN CONSTIPATION (Reported) Gabapentin 300 MG CAPSULE 1 CAP PO BID NEUROPATHY (Reported) Lidocaine (Aspercreme) 4 % ADH..PATCH 1 PATCH TD DAILY PAIN CONTROL (Reported ) Mirtazapine (Remeron) 30 MG TABLET 0.5 TAB PO QPM MENTAL HEALTH (Reported) Naloxone HCl 0.4 MG/ML VIAL 1 YOCASTA MAYUR NEEDED OPOID INDUCED RESP DISTRESS ( Reported) Sertraline HCl (Zoloft) 100 MG TABLET 1 TAB PO DAILY DEPRESSION (Reported) Trazodone HCl 50 MG TABLET 0.5 TAB PO QHS MENTAL HEALTH (Reported) Triage Note: [facility] 77 YO [facility] PT O2 DEPENDANT ON 2L O2 VIA N/C. PT WAS FOUND OFF OF HIS O2 WITH DECREASED LOC. B.S. 113. ALL V.S.S. INITIAL O92 SAT 77% ON ROOM AIR AT ECF. PT PLACED ON O2 VIA N/C. O2 SATS 93% ON 3L O2 VIA N/C. PT RESPONSIVE ONLY TO VERBAL STIMULI. NO RESPONSE TO COMMAND. Triage Nurses Notes Reviewed? yes Onset: Abrupt Duration: day(s): (1), constant, continues in ED Timing: single episode today Injury Environment: home Severity: moderate, severe No Modifying Factors: none HPI: 77-year-old male past medical history of CHF, dementia atrial fibrillation presents for evaluation of altered mental status. EMS reports patient was found lethargic and hypoxic. He is usually on oxygen via nasal cannula however it was found off of him. She is currently lethargic and demented. He is unable to provide any history. He was recently admitted here with similar symptoms and required BiPAP. Patient is alert to loud verbal and painful stimuli only. (Jovani Arreola) Past History Travel History Traveled to [place] past 21 day No Medical History Any Pertinent Medical History? see below for history Neurological: dementia, migraine, metabolic encephalopathy EENT: hearing loss Cardiovascular: AFIB, CHF (diastolic dysfunction), myocardial infarction Respiratory: COPD Gastrointestinal: diverticulitis, GERD, C DIFF Hepatic: NONE Renal: benign prost hyperplasia, chronic kidney disease (h/o CARISA), RENAL FAILURE CKD ARF CHRONIC INDWELLING GARZA hematuria UTI (h/o CARISA episodes) Musculoskeletal: gout Psychiatric: anxiety, depression Endocrine: obesity Blood Disorders: anemia Cancer(s): NONE HEALTH INFORMATION SPECIALIST/Reproductive: UTI CHRONIC GARZA Other Medical Hx: shingles Paroxysmal atrial fibrillation, GI bleed, diastolic dysfunction, coronary artery disease, hypertension, labyrinthitis, chronic kidney disease, chronic indwelling Garza catheter, BPH, renal calculi, gout, arthritis, DJD, chronic bilateral lower extremity edema, anxiety, depression, iron deficiency anemia. History of MRSA: Yes History of VRE: Yes History of CDIFF: No Surgical History Surgical History: none, . Psychosocial History Who do you live with Other (see notes) Services at Home Nursing What is your primary language Persian Tobacco Use: UN Family History Family History, If Any: BROTHER (Brain tumor). FATHER Relation not specified for: FH: hypertension Hx Contributory? No (Jovani Arreola) Review of Systems Review of Systems Constitutional: Reports: no symptoms. EENTM: Reports: no symptoms. Respiratory: Reports: see HPI, short of breath. Cardiovascular: Reports: no symptoms. GI: Reports: no symptoms. Genitourinary: Reports: no symptoms. Musculoskeletal: Reports: no symptoms. Skin: Reports: no symptoms. Neurological/Psychological: Reports: see HPI, confusion, dementia. Hematologic/Endocrine: Reports: no symptoms. Immunologic/Allergic: Reports: no symptoms. All Other Systems: Reviewed and Negative (Jovani Arreola) Physical Exam Physical Exam General Appearance: well developed/nourished, no apparent distress, alert, lethargic, obese Head: atraumatic, normal appearance Eyes: Bilateral: normal appearance, PERRL, EOMI. Ears, Nose, Throat: normal pharynx, normal ENT inspection, hearing grossly normal Neck: normal inspection, supple, full range of motion Respiratory: chest non-tender, decreased breath sounds, crackles, INCREASED RESPIRATORY EFFORT Cardiovascular: regular rate/rhythm, normal peripheral pulses Peripheral Pulses: 2+ radial (R), 2+ radial (L) Gastrointestinal: normal bowel sounds, soft, non-tender, no organomegaly Back: normal inspection, normal range of motion, no vertebral tenderness Extremities: normal range of motion, BILATERAL NONPITTING LOWER EXTREMITY EDEMA NO ERYTHEMA OR DISCHARGE Neurologic/Psych: no motor/sensory deficits, awake, PATIENT IS RESPONSIVE TO LOUD VERBAL STIMULI HE DOES NOT FOLLOW ANY COMMANDS, LETHARGIC Skin: intact, normal color, warm/dry Lymphatic: no anterior cervical félix Core Measures ACS in differential dx? Yes CVA/TIA Diagnosis No Sepsis Present: No Sepsis Focused Exam Completed? No (Jovani Arreola) Progress Differential Diagnosis: arrythmia, anemia, benign positional vertigo, CVA/stroke , dehydration, encephalitis, electrolyte imbalance, GI bleed, intracranial Hem., intracranial mass/tumor, migraine SERNA, pneumonia, postural hypotension, presyncope, post-traumatic vertigo, subarachnoid Hem., UTI/pyelo Plan of Care: Orders Procedure Date/time Status Nothing by Mouth 11/17 B Active ARTERIAL BLOOD GAS (GEN) 11/17 0300 Active TROPONIN LEVEL 11/17 0300 Active EKG 11/17 0300 Active ARTERIAL BLOOD GAS (GEN) 11/17 0200 Active VRE ACTIVE SURVIELLANCE 11/17 0015 Active ACTIVE SURVEILLANCE NARES 11/17 0015 Active Code Status 11/17 0002 Active BIPAP 11/17 UNK Complete ARTERIAL BLOOD GAS (GEN) 11/16 2317 Active Patient Data 11/16 2301 Active Admit to inpatient 11/16 2250 Active BIPAP 11/16 215 Complete LACTIC ACID 11/16 215 Complete ARTERIAL BLOOD GAS (GEN) 11/16 2100 Complete Add-on Test (ER Only) 11/16 2055 Active BIPAP 11/16 194 Complete CULTURE,URINE 11/16 193 Active EKG 11/16 1855 Active Intake & Output 11/16 185 Active ARTERIAL BLOOD GAS (GEN) 11/16 185 Complete URINALYSIS 11/16 185 Complete TROPONIN LEVEL 11/16 1850 Complete PARTIAL THROMBOPLASTIN TIME 11/16 1850 Complete PROTHROMBIN TIME 11/16 1850 Complete MAGNESIUM 11/16 1850 Complete D-DIMER 11/16 1850 Complete COMPREHENSIVE METABOLIC PANEL 11/16 1850 Complete CBC WITHOUT DIFFERENTIAL 11/16 1850 Complete B-TYPE NATRIURETIC PEP (BNP) 11/16 1850 Complete Laboratory Tests 11/16/172109: pH 7.28 *L, pCO2 67 *H, pO2 87, HCO3 31 H, ABG O2 Sat (Measured) 95.0 L, P-50 (Temp Corrected) Y, Carboxyhemoglobin 1.2 L, O2 Concentration % 35%, Temperature 97.8, Respiration Rate 26, O2 Delivery Method BIPAP, Vent Mode ST, Expiratory Pressure 4, Inspiratory Pressure 24, Phlebotomy Draw Site RIGHT RADIAL 11/16/172108: CBC w Diff NO MAN DIFF REQ, RBC 4.09 L, MCV 80.2, MCH 24.4 L, MCHC 30.4 L, RDW 18.8 H, MPV 9.6, Gran % 79.0 H, Lymphocytes % 11.2 L, Monocytes % 6.2, Eosinophils % 2.6, Basophils % 1.0, Absolute Granulocytes 6.5, Absolute Lymphocytes 0.9 L, Absolute Monocytes 0.5, Absolute Eosinophils 0.2, Absolute Basophils 0.1 11/16/172009: Lactic Acid 1.5 11/16/17 2010: Anion Gap 12, Estimated GFR 39 L, BUN/Creatinine Ratio 17.1, Glucose 86, Calcium 9.0, Magnesium 2.1, Total Bilirubin 0.3, AST 14 L, ALT 11 L, Alkaline Phosphatase 54, Troponin I 0.05, Kpr-R-Mckfsvucnbg Pept 4820 H, Total Protein 7.0, Albumin 3.6, Globulin 3.4, Albumin/Globulin Ratio 1.1, PT 11.0, INR 1.05, APTT 22 L, D-Dimer High Sensitivty 664 H 11/16/171929: Urinalysis LIGHT H, Urine Color YEL, Urine Clarity CLDY H, Urine pH 6.5, Ur Specific [place] 1.025, Urine Protein 100 H, Urine Ketones NEG, Urine Nitrite NEG, Urine Bilirubin NEG, Urine Urobilinogen 0.2, Ur Leukocyte Esterase MOD H, Ur Microscopic SEDIMENT EXAMINED, Urine RBC 5-10 H, Urine WBC PACKD H, Urine Bacteria MANY H, Urine Hemoglobin LARGE H, Urine Glucose NEG 11/16/171919: pH 7.23 *L, pCO2 76 *H, pO2 92, HCO3 32 H, ABG O2 Sat (Measured) 95.0 L, P-50 (Temp Corrected) Y, Carboxyhemoglobin 0.9 L, O2 Concentration % 4L, Temperature 97.8, O2 Delivery Method NC, Phlebotomy Draw Site RIGHT RADIAL 11/16/17 1902: D-Dimer High Sensitivty Cancelled 11/16/17 1856: Lactic Acid Cancelled Microbiology 11/17 14 UPPER RESP: Surveillance Culture - ORD 11/17 14 GI: Surveillance Culture - ORD 11/16 1929 URINE ROUT: Urine Culture - RECD Patient seen and evaluated. He was found off oxygen altered and lethargic. EMS reports action saturation in the 70s when they arrived. Patient is lethargic only responsive to loud verbal and painful stimuli. Will check ABG. Patient is currently on 3 L nasal cannula he is not on oxygen at home he is satting in the mid 90s. Lungs sounds are diminished but there are crackles lower extremity edema and JVD. ABG shows a respiratory acidosis with a CO2 in the 70s. Patient was placed on BiPAP. We'll check another he ABG In 90 minutes. No white count. Troponin negative. Urine is showing signs of infection culture added patient will be covered with ceftriaxone. Repeat ABG shows improvement. Patient is starting to wake up now but does still remain lethargic. Chest x-ray shows pulmonary edema BNP is elevated. Patient's previous ABGs are similar to what is at now. BiPAP was increased to help further remove CO2. Patient was started on Lasix and Nitropaste. He'll be admitted to the hospital for CHF exacerbation and respiratory failure. CT scan of the brain is negative. Case discussed with Dr. Moya he agrees. Diagnostic Imaging: Viewed by Me: Radiology Read. Discussed w/RAD: Radiology Read. CXR Impression: PATIENT: MARCY LOMELI PRESENT AGE: 77 PATIENT ACCOUNT NO: [id number] : 40 LOCATION: [facility] ORDERING PHYSICIAN: Jovani KNOWLES SERVICE DATE: 11/16/17 EXAM TYPE: RAD - XRY-PORTABLE CHEST XRAY EXAMINATION: XR PORTABLE CHEST CLINICAL INFORMATION: 77-year-old man with hypoxia. COMPARISON: 11/10/2017 chest radiograph TECHNIQUE: Portable frontal view of the chest was obtained. FINDINGS: Lung volumes remain low with perihilar opacities likely reflecting moderate pulmonary edema. Superimposed airspace opacity at the left lung base could reflect atelectasis or consolidation. There is moderate to marked cardiomegaly. There are probably small bilateral effusions as well. IMPRESSION: Low lung volumes with moderate presumed pulmonary edema. Nonspecific superimposed opacity at the left lung base. DICTATED BY: Trice Ahn MD DATE/TIME DICTATED:11/16/171929 TRIMMING DEPARTMENT BLOCKER:EFREM DATE/TIME TRANSCRIBED:11/16/171929 CONFIDENTIAL, DO NOT COPY WITHOUT APPROPRIATE AUTHORIZATION. <Electronically signed in Other Vendor System> SIGNED BY: Trice Ahn MD 11/16/171933 Initial ED EKG: normal sinus rhythm, RBBB, PAC, LAFB (Avni KNOWLES,Jovani) Departure Departure Disposition: STILL A PATIENT Condition: Stable Clinical Impression Primary Impression: Acute exacerbation of CHF (congestive heart failure) Qualifiers: Heart failure type: unspecified Qualified Code: I50.9 - Heart failure, unspecified Secondary Impressions: Respiratory failure with hypercapnia Qualifiers: Chronicity: acute Qualified Code: J96.02 - Acute respiratory failure with hypercapnia Referrals: West TEAGUE,Fredy Pinto (PCP/Family) Departure Forms: Customer Survey General Discharge Information Admission Note Spoke With: Bladimir Castellanos MD Documentation of Exam: Documentation of any treatments & extenuating circumstances including Concerns Regarding Discharge (functional status, medication knowledge or non-compliance, living conditions, etc.) that warrant an admission rather than observation: [ Cardiology consult, BiPAP, serial labs, serial chest x-rays, IV Lasix, nitroglycerin, medication adjustment, serial blood gas] (Jovani Arreola) PA/MARBLEIZING MACHINE TENDER Co-Sign Statement Statement: ED Attending supervision documentation- x[] I saw and evaluated the patient. I have also reviewed all the pertinent lab results and diagnostic results. I agree with the findings and the plan of care as documented in the PA's/MARBLEIZING MACHINE TENDER's documentation. 11/16/17, 19:30... pt with somnolence, diminished breath sounds... h/o chf... pt merits abg, admission, likely will need bipap. - - - 11/16/17, 21:30... abg improving... clinically pt is improving... will increase peak inspiratory pressure and respiratory rate... pt to be admitted to icu. [] I have reviewed the ED Record and agree with the PA's/MARBLEIZING MACHINE TENDER's documentation. [] Additions or exceptions (if any) to the PAs/MARBLEIZING MACHINE TENDER's note and plan are summarized below: [] (Griffin TEAGUE,Thom Mesa) Critical Care Note Critical Care Note Critical Care Time: 30-74 min (Griffin TEAGUE,Thom Mesa)
[2017-11-16 20:25] LABS: PTT 22 SEC (25-37)
[2017-11-16 21:13] LABS: ABSOLUTE BASOPHIL COUNT 0.1 /CUMM (0.0-0.2); ABSOLUTE EOSINOPHIL COUNT 0.2 /CUMM (0.0-0.7); ABSOLUTE GRANULOCYTE CT 6.5 /CUMM (1.4-6.5); ABSOLUTE LYMPH COUNT 0.9 /CUMM (1.2-3.4); ABSOLUTE MONOCYTE COUNT 0.5 /CUMM (0.10-0.60); EOSINOPHIL % 2.6 % (0-5); HEMATOCRIT 32.8 % (42-52); MEAN CORPUSCULAR HGB 24.4 PG (27.0-31.0); MEAN CORPUSCULAR HGB CONC 30.4 G/DL (33.0-37.0); MEAN CORPUSCULAR VOLUME 80.2 FL (80.0-94.0); MEAN PLATELET VOLUME 9.6 FL (7.4-10.4); PLATELET COUNT 192 /CUMM (130-400); RBC DISTRIBUTION WIDTH 18.8 % (11.5-14.5); RED BLOOD CELL CT 4.09 /CUMM (4.70-6.10)
[2017-11-16 21:14] LABS: WHITE BLOOD CELL COUNT 8.2 /CUMM (4.8-10.8)
--- NOTE | 2017-11-16 22:00 | CT SCAN REPORT ---
EXAMINATION: CT HEAD WITHOUT CONTRAST CLINICAL INFORMATION: Altered mental status. Lethargic. COMPARISON: CT head 11/10/2017 TECHNIQUE: Contiguous axial imaging was performed from the skull base to vertex without intravenous administration of contrast. Coronal reformatted images performed at the CT scanner DLP: 1412.62 mGy-cm FINDINGS: There is no evidence of acute intracranial hemorrhage or territorial infarction. No abnormal mass effect or midline shift is seen. Betts to white matter differentiation is well preserved. No extra-axial fluid collections are identified. There is atrophy with prominence of the ventricles and the sulci and hypodensity of the periventricular white matter due to chronic small vessel ischemic disease. There is vascular calcifications of the internal carotid arteries bilaterally. The osseous structures and soft tissues are normal. Retention cyst in the left maxillary sinus measuring about 2.7 cm AP. There is partial opacification of the middle ear cavity of the left ear. The mastoid air cells are underdeveloped bilaterally. The mastoid air cells are present appear to be opacified similar prior study. Compared to prior study of 11/10/2017 is been no change. IMPRESSION: No acute intracranial pathology.
--- NOTE | 2017-11-16 22:26 | ULTRASOUND REPORT ---
EXAMINATION: US TRIPLEX OF LOWER EXTREMITIES, BILATERAL CLINICAL INFORMATION: Edema. Swelling. COMPARISON: None TECHNIQUE: Color-flow triplex imaging with spectral analysis and compression Doppler were performed on the lower extremities. FINDINGS: Exam limited. Patient moving legs right exam. Patient; chest. Exam performed portable. Respiratory variation, normal compression and augmented flow are noted throughout the lower extremities. The visualized common femoral vein, superficial femoral vein, profunda femoral vein, popliteal vein and midcalf peroneal and posterior tibial venous segments show no evidence of deep venous thrombosis. There is no Wilson's cyst. IMPRESSION: Normal triplex scan without evidence of deep venous thrombosis involving the lower extremities.
--- NOTE | 2017-11-16 23:17 | History & Physical ---
Enrrique Cross 11/16/17 6077: General Information and HPI MD Statement: I have seen and personally examined MARCY LOMELI and documented this H&P. The patient is a 77 year old M who presented with a patient stated chief complaint of desaturation Source of Information: family, old records, W10 Exam Limitations: unable to give history, clinical condition History of Present Illness: 77 year old morbidly obese gentleman from [facility] with a PMH of dementia, hearing impairment, COPD on 2L home oxygen, diastolic CHF, CKD, paroxysmal atrial fibrillation not on anticoagulation, BPH, chronic back pain, chronic indwelling catheter, anemia, gout, anxiety, depression, and morbid obesity sent from [facility] when he was found to be unresponsive with an oxygen saturation of 70s not responding to nonrebreather. Patient unable to provide history. Spoke to Cee at the nursing tire room supervisor at [facility] who stated that patient is noncompliant with medications as well as using his oxygen or BiPAP. Since discharge from [facility], there is no new changes in his medication he. She stated that he continues to be noncompliant with instructions for using oxygen as well as his medications. No documented fever or any other issues were noted there. Was recently discharged from [facility] on November 13 after being treated for acute hypoxic hypercarbic respiratory failure. Allergies/Medications Allergies: Coded Allergies: No Known Allergies (07/02/17) Home Med list Acetaminophen 325 MG TABLET 2 TAB PO Q6-8P PAIN CONTROL (Reported) Allopurinol 100 MG TABLET 1 TAB PO DAILY GOUT (Reported) Amiodarone (Cordarone) 200 MG TAB 1 TAB PO DAILY AFIB (Reported) Amlodipine Besylate 5 MG TABLET 1 TAB PO DAILY HTN (Reported) Calcium Carbonate/Vitamin D3 (Caltrate 600 + D Tablet) 600 MG-800 TABLET 1 TAB PO DAILY SUPPLEMENT (Reported) Calcium Polycarbophil (Fibercon) 625 MG TABLET 1 TAB PO BID PRN CONSTIPATION (Reported) Gabapentin 300 MG CAPSULE 1 CAP PO BID NEUROPATHY (Reported) Lidocaine (Aspercreme) 4 % ADH..PATCH 1 PATCH TD DAILY PAIN CONTROL (Reported ) Mirtazapine (Remeron) 30 MG TABLET 0.5 TAB PO QPM MENTAL HEALTH (Reported) Naloxone HCl 0.4 MG/ML VIAL 1 YOCASTA MAYUR NEEDED OPOID INDUCED RESP DISTRESS ( Reported) Sertraline HCl (Zoloft) 100 MG TABLET 1 TAB PO DAILY DEPRESSION (Reported) Trazodone HCl 50 MG TABLET 0.5 TAB PO QHS MENTAL HEALTH (Reported) Past History Travel History Traveled to [place] past 21 day No Medical History Neurological: dementia, migraine, metabolic encephalopathy EENT: hearing loss Cardiovascular: AFIB, CHF (diastolic dysfunction), myocardial infarction Respiratory: COPD Gastrointestinal: diverticulitis, GERD, C DIFF Hepatic: NONE Renal: benign prost hyperplasia, chronic kidney disease (h/o CARISA), RENAL FAILURE CKD ARF CHRONIC INDWELLING GARZA hematuria UTI (h/o CARISA episodes) Musculoskeletal: gout Psychiatric: anxiety, depression Endocrine: obesity Blood Disorders: anemia Cancer(s): NONE AED TRAINER/Reproductive: UTI CHRONIC GARZA Other Medical Hx: shingles Paroxysmal atrial fibrillation, GI bleed, diastolic dysfunction, coronary artery disease, hypertension, labyrinthitis, chronic kidney disease, chronic indwelling Garza catheter, BPH, renal calculi, gout, arthritis, DJD, chronic bilateral lower extremity edema, anxiety, depression, iron deficiency anemia. History of MRSA: Yes History of VRE: Yes History of CDIFF: No Surgical History Surgical History: none, . Past Family/Social History Family History Relations & Conditions if any BROTHER (Brain tumor). FATHER Relation not specified for: FH: hypertension Psychosocial History Where do you live? Extended Care Facility Who Do You Live With? spouse Services at Home: Nursing Functional Ability ADLs Needs Assist: dressing, eating, toileting, bathing. Ambulation: OFTEN USES WHEELCHAIR IADLs Independent: shopping, housework, finances, food prep, telephone, transportation , medication admin. Review of Systems Review of Systems Constitutional: Reports: see HPI. Exam & Diagnostic Data Last 24 Hrs of Vital Signs/I&O Vital Signs Date Time Temp Pulse Resp B/P B/P Pulse O2 O2 Flow FiO2 Mean Ox Delivery Rate 11/17 0132 97.3 54 22 120/57 95 BIPAP 35% 11/17 0031 54 26 120/70 95 BIPAP 11/17 0018 66 96 11/169 62 26 94/64 95 BIPAP 11/16 2255 97.8 65 26 92/65 95 BIPAP 35% 11/166 95.0 57 18 93/52 96 BIPAP 11/169 67 95 11/16 2011 97.8 65 26 127/60 94 BIPAP 35% 11/16 1945 64 95 11/16 1942 95 Nasal 4.0L Cannula 11/16 1842 98.3 74 20 151/84 93 Nasal 3.0L Cannula Intake & Output 11/17 0800 11/17 0000 11/16 1600 Intake Total Output Total 100 Balance -100 Output, Urine 100 Patient 300 lb Weight Weight Estimated Measurement Method Physical Exam General Appearance Severe Distress, morbidly obese Skin No Significant Lesion Skin Temp/Moisture Exam: Cool/Dry Sepsis Skin Exam (color): Pale HEENT PERRLA, dry mucous membranes Neck unable to visualize JVD Cardiovascular Normal S1, Normal S2 Lungs decreased breath sounds Abdomen Normal Bowel Sounds, Soft, No Tenderness Neurological obtunded Extremities No Edema, Normal Pulses Diagnostic Data CXR Results FINDINGS: Lung volumes remain low with perihilar opacities likely reflecting moderate pulmonary edema. Superimposed airspace opacity at the left lung base could reflect atelectasis or consolidation. There is moderate to marked cardiomegaly. There are probably small bilateral effusions as well. IMPRESSION: Low lung volumes with moderate presumed pulmonary edema. Nonspecific superimposed opacity at the left lung base. Assessment/Plan Assessment: 77 year old morbidly obese gentleman with indwelling Garza catheter from [facility] with a PMH of dementia, hearing impairment, COPD on 2L home oxygen, diastolic CHF, CKD, paroxysmal atrial fibrillation not on anticoagulation, BPH, chronic back pain, chronic indwelling catheter, anemia, gout, anxiety, depression, and morbid obesity sent from [facility] when he was found to be unresponsive with an oxygen saturation of 70s not responding to nonrebreather. Vitals on admission temperature 90.5, blood pressure 151/84, saturating 96% on BiPAP Labs pertinent for WBC 8.2, hemoglobin 10, hematocrit 32, platelet 192, sodium 143, potassium 5, chloride 101, bicarbonate 29, BUN 29, creatinine 1.7 Initial ABG shows 7.28/76/90 2 repeat ABG 7.2/67/87 INR 1.05, UA shows packed WBC and RBCs positive leukocyte esterase Chest x-ray showed low lung volumes, moderate presumed pulmonary edema and superimposed obesity in the left lung base Head CT showed no evidence of acute intracranial hemorrhage or pathology Venous Doppler showed no evidence of DVT assessement/plan #Acute hypercarbic respiratory failure: Multifactorial COPD exacerbation admit to ICU, vitals per protocol, continued on Bipap. Called and spoke to Dr. Parker and setting changed per his recommendation. IV steroids started. Received 1 time of IV 40 Lasix in the ED TRC/nebs [id number] as his opacity on chest xray was present on last admission and he is now afebrile with no leukocytosis will follow him off antibiotics. #CKD stage III: Creatinine at baseline baseline is around 1.7, avoid nephrotoxins medications. #History of HTN/CAD Afib, and depression All home medication including depakote, remeron, trazodone, norvasc, Zoloft and amiodarone were held secondary to his altered mental status. We'll trend troponins/ EKG, cardio consult in a.m. Recent echo done 11/11/07 :ejection fraction visually estimated at >60 %. No obvious regional wall motion abnormalities. DVT prophylaxis with subcutaneous heparin diet: will keep him NPO Called and spoke to his Shira rogers regarding his CODE STATUS. She wishes him to be DNR/DNI and to not pursue central line. At this time she would only like him to be on BiPAP As Ranked By This Provider Problem List: 1. Morbid obesity 2. Acute hypercapnic respiratory failure 3. Chronic renal insufficiency Core Measures/Misc (06/14) Acute Coronary Syndrome ACS Diagnosis: No Congestive Heart Failure Congestive Heart Failure Diagnosis No Cerebrovascular Accident CVA/TIA Diagnosis: No VTE (View Protocol) VTE Risk Factors Obesity No Mechanical VTE Prophylaxis d/t Other No VTE Pharm Prophylaxis d/t NA PharmProphylax ordered Sepsis (View protocol) Sepsis Present: No Emanuel TEAGUE, [facility] 11/16/17 2321: Attending MD Review Statement Attending Statement Attending MD Statement: examined this patient, discuss w/resident/PA/ADVERTISING JOB TITLES, agreed w/resident/PA/ADVERTISING JOB TITLES, reviewed images, amended to note Attending Assessment/Plan: 77 yo morbidly obese M who is a resident of [facility], has a h/o paroxysmal Afib not on AC, CKD stage 3B, COPD on 2L O2, OHS, chronic garza due to BPH/ incontinence and strictures, HTN, CAD, chronic diastolic heart failure, depression, is sent in for lethargy, altered mentation and hypoxia. Per [facility], patient was found off his oxygen with sats 77% on RA--> improved with O2 supplementation. He was responsive only to painful stimuli. He was placed on Bipap in the ER. Patient is very hard of hearing and demented. He is unable to provide a history due to his clinical condition. Patient was recently here (Nov 09) for respiratory failure requiring Bipap use but seems to remain noncompliant with medications and oxygen supplementation or Bipap use at the facility. Vitals: afebrile, HR 50-70's, BP 127/60 --> 94/64 -->120/70, sats 95% on 4L --> 96% on Bipap FiO2 35%. Exam: lethargic but arousable only to painful stimuli and loud verbal stimuli but does not follow commands, he is very hard of hearing. PERRL, Neck difficult to appreciate JVD given body habitus, Chest b/l scattered rhonchi and bibasilar crackles+, Heart S1S2 regular, Abd: soft, obese, nontender, LE: bilateral 1+ pitting edema. Labs: no leukocytosis, H/H 10/32.8, D-dimer 664, INR 1.05, BUN 29, creat 1.7 ( baseline), lactic acid 1.5, trop 0.05, proBNP 4820. UA cloudy, proteinuria, mod leukocyte esterase, packed WBC, many bacteria. AB.23/76/92/32 on 4L --> Bipap --> 7.28/67/87/31. CXR: low lung volumes with moderate presumed pulmonary edema, nonspecific superimposed left lung base opacity ?atelectasis. Marked cardiomegaly. Small bilateral pleural effusions. CT head: no acute pathology. LE dopplers: no DVT. EKG: sinus rhythm, HR 50's, PAC's, RBBB, LAFB, no acute changes. Echo (2018): EF >60%, mild concentric LVH, mild aortic stenosis. Assessment and plan: 1. Altered mental status 2. Acute on chronic hypercarbic and hypoxic respiratory failure 3. Acute on chronic diastolic heart failure 4. Mild acute exacerbation of COPD with underlying obesity hypoventilation syndrome 5. No evidence of pneumonia, left lung base opacity likely atelectasis was present previously 6. PE remains a possibility, elevated D-dimer, LE dopplers negative, unable to do CTA due to CKD 7. Chronic garza catheter with urine contamination - Admit to ICU - Vitals Q 1 hour - Neurochecks Q2 - ABG settings adjusted, recheck ABG in 1 hour - CRCU consult placed (Dr. Parker) - IV lasix 40 daily - Serial EKG and troponin - No need to repeat Echo - Cardio consult in AM - Check TSH, free T4 - TRC nebs - IV steroids with rapid prednisone taper - IV ceftriaxone was given in ER for possible UTI, we will hold antibiotics, follow urine culture. - Please check with ECF when was the garza last changed? - LLL opacity on CXR seems to be persistent from previous Xray. - If persistently hypoxic, consider VQ scan to rule out PE - NPO for now. - Swallow eval in AM patient was on puree and regular thin diet previously. - Hold trazodone, gabapentin, mirtazapine, sertraline and amlodipine. Resume when BP stabilizes and patient more awake/alert. - Resume amiodarone. - GI ppx IV PPI DVT ppx Hep SC. DNR/I (Resident discussed this with ) TTS > 55 mins
--- NOTE | 2017-11-17 01:58 | Admission Certification ---
Admission Certification Certification Statement - As attending physician, I certify that at the time of - admission, based on clinical presentation, severity of - symptoms, need for further diagnostic testing and - therapeutic interventions, and risk of adverse outcomes - without in-hospital treatment, in my clinical assessment, - this patient requires an acute hospital stay for a minimum - of two nights or longer. I have also considered psychsocial - factors such as support system, advanced age, financial - issues, cognitive issues, and failed out-patient treatments, - past re-admission history, safety of patient, and lack of - compliance as applicable. Specific rationale supporting this admission is: Acute on chronic hypercarbic and hypoxic respiratory failure, acute on chronic diastolic CHF with COPD.
[2017-11-17 03:35] LABS: ABSOLUTE BASOPHIL COUNT 0 /CUMM (0.0-0.2); ABSOLUTE EOSINOPHIL COUNT 0.3 /CUMM (0.0-0.7); ABSOLUTE GRANULOCYTE CT 5.3 /CUMM (1.4-6.5); ABSOLUTE LYMPH COUNT 0.8 /CUMM (1.2-3.4); ABSOLUTE MONOCYTE COUNT 0.4 /CUMM (0.10-0.60); BASOPHIL % 0.7 % (0.0-2.0); EOSINOPHIL % 3.9 % (0-5); GRANULOCYTE % 78.8 % (42.2-75.2); HEMATOCRIT 28.8 % (42-52); MEAN CORPUSCULAR HGB 24.2 PG (27.0-31.0); MEAN CORPUSCULAR HGB CONC 30.4 G/DL (33.0-37.0); MEAN CORPUSCULAR VOLUME 79.7 FL (80.0-94.0); MEAN PLATELET VOLUME 10.1 FL (7.4-10.4); PLATELET COUNT 194 /CUMM (130-400); RBC DISTRIBUTION WIDTH 18.9 % (11.5-14.5); RED BLOOD CELL CT 3.61 /CUMM (4.70-6.10); WHITE BLOOD CELL COUNT 6.8 /CUMM (4.8-10.8)
--- NOTE | 2017-11-17 07:38 | Cons- CRCU ---
General Information and HPI Allergies/Medications Allergies: Coded Allergies: No Known Allergies (07/02/17) Home Med List: Acetaminophen 325 MG TABLET 2 TAB PO Q6-8P PAIN CONTROL (Reported) Allopurinol 100 MG TABLET 1 TAB PO DAILY GOUT (Reported) Amiodarone (Cordarone) 200 MG TAB 1 TAB PO DAILY AFIB (Reported) Amlodipine Besylate 5 MG TABLET 1 TAB PO DAILY HTN (Reported) Calcium Carbonate/Vitamin D3 (Caltrate 600 + D Tablet) 600 MG-800 TABLET 1 TAB PO DAILY SUPPLEMENT (Reported) Calcium Polycarbophil (Fibercon) 625 MG TABLET 1 TAB PO BID PRN CONSTIPATION (Reported) Gabapentin 300 MG CAPSULE 1 CAP PO BID NEUROPATHY (Reported) Lidocaine (Aspercreme) 4 % ADH..PATCH 1 PATCH TD DAILY PAIN CONTROL (Reported ) Mirtazapine (Remeron) 30 MG TABLET 0.5 TAB PO QPM MENTAL HEALTH (Reported) Naloxone HCl 0.4 MG/ML VIAL 1 YOCASTA MAYUR NEEDED OPOID INDUCED RESP DISTRESS ( Reported) Sertraline HCl (Zoloft) 100 MG TABLET 1 TAB PO DAILY DEPRESSION (Reported) Trazodone HCl 50 MG TABLET 0.5 TAB PO QHS MENTAL HEALTH (Reported) Past History Travel History Traveled to [place] past 21 day No Medical History Neurological: dementia, migraine, metabolic encephalopathy EENT: hearing loss Cardiovascular: AFIB, CHF (diastolic dysfunction), myocardial infarction Respiratory: COPD Gastrointestinal: diverticulitis, GERD, C DIFF Hepatic: NONE Renal: benign prost hyperplasia, chronic kidney disease (h/o CARISA), RENAL FAILURE CKD ARF CHRONIC INDWELLING GARZA hematuria UTI (h/o CARISA episodes) Musculoskeletal: gout Psychiatric: anxiety, depression Endocrine: obesity Blood Disorders: anemia Cancer(s): NONE 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 Surgical History Surgical History: 1 . Family History Relations & Conditions If Any: BROTHER (Brain tumor). FATHER Relation not specified for: FH: hypertension Psychosocial History Where Do You Live? Extended Care Facility Who Do You Live With? spouse Services at Home: Nursing Smoking Status: Unknown If Ever Smoked Functional Ability ADLs Needs Assist: dressing, eating, toileting, bathing. Ambulation: OFTEN USES WHEELCHAIR IADLs Independent: shopping, housework, finances, food prep, telephone, transportation , medication admin. Assessment/Plan CRCU Consult Acknowledgment - Thank you for your consult request.
--- NOTE | 2017-11-17 07:50 | Cons- CRCU ---
Ramon TEAGUE,[facility] 11/17/17 0749: General Information and HPI Consulting Request Date of Consult: 11/17/17 Requested By: Source of Information: old records Exam Limitations: unable to give history History of Present Illness: The patient is 77-year-old gentleman with past medical history of morbid obesity , paroxysmal atrial fibrillation not on any anticoagulation, COPD on 2 L home oxygen, OHS, CAD, hypertension, chronic diastolic heart failure, CKD stage III, chronic Garza due to BPH/incontinence and strictures and depression. Patient is resident of [facility] and was sent in with complaint of lethargy, altered mental status and hypoxia. The patient to be satting at 77% on room air , improved somewhat with oxygen supplementation. Patient on presentation was only responding to painful stimulus and was placed on BiPAP in ER. He was unable to provide history. As per the admitting resident note patient is noncompliant with medication and oxygen supplementation/BiPAP use at the facility. Of note patient was recently admitted in [facility] from November 09 to November 13 for respiratory failure requiring BiPAP. In the morning patient remains on BiPAP easily arousable with loud voice and painful stimulus. Tmax 96 70s to 50s Sinus rhythm to sinus bradycardia with few PACs. Blood pressure ranging 130s/40s to 50s Currently on BiPAP 28 FiO2 35% 23/03 Allergies/Medications Allergies: Coded Allergies: No Known Allergies (07/02/17) Home Med List: Acetaminophen 325 MG TABLET 2 TAB PO Q6-8P PAIN CONTROL (Reported) Allopurinol 100 MG TABLET 1 TAB PO DAILY GOUT (Reported) Amiodarone (Cordarone) 200 MG TAB 1 TAB PO DAILY AFIB (Reported) Amlodipine Besylate 5 MG TABLET 1 TAB PO DAILY HTN (Reported) Calcium Carbonate/Vitamin D3 (Caltrate 600 + D Tablet) 600 MG-800 TABLET 1 TAB PO DAILY SUPPLEMENT (Reported) Calcium Polycarbophil (Fibercon) 625 MG TABLET 1 TAB PO BID PRN CONSTIPATION (Reported) Gabapentin 300 MG CAPSULE 1 CAP PO BID NEUROPATHY (Reported) Lidocaine (Aspercreme) 4 % ADH..PATCH 1 PATCH TD DAILY PAIN CONTROL (Reported ) Mirtazapine (Remeron) 30 MG TABLET 0.5 TAB PO QPM MENTAL HEALTH (Reported) Naloxone HCl 0.4 MG/ML VIAL 1 YOCATSA MAYUR NEEDED OPOID INDUCED RESP DISTRESS ( Reported) Sertraline HCl (Zoloft) 100 MG TABLET 1 TAB PO DAILY DEPRESSION (Reported) Trazodone HCl 50 MG TABLET 0.5 TAB PO QHS MENTAL HEALTH (Reported) Review of Systems Review of Systems Constitutional: Reports: see HPI. 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 Surgical History Surgical History: 1 . Family History Relations & Conditions If Any: BROTHER (Brain tumor). FATHER Relation not specified for: FH: hypertension Psychosocial History Where Do You Live? Extended Care Facility Who Do You Live With? spouse Services at Home: Nursing Smoking Status: Unknown If Ever Smoked Functional Ability ADLs Needs Assist: dressing, eating, toileting, bathing. Ambulation: OFTEN USES WHEELCHAIR IADLs Independent: shopping, housework, finances, food prep, telephone, transportation , medication admin. Exam & Diagnostic Data Last 24 Hrs of Vital Signs/I&O Vital Signs Date Time Temp Pulse Resp B/P B/P Pulse O2 O2 Flow FiO2 Mean Ox Delivery Rate 11/17 0643 70 95 11/17 0400 95 BIPAP 35% 11/17 0339 56 95 11/17 0200 97 BIPAP 35% 11/17 0132 97.3 54 22 120/57 95 BIPAP 35% 11/17 0031 54 26 120/70 95 BIPAP 11/17 0018 66 96 11/16 2349 62 26 94/64 95 BIPAP 11/16 2256 97.8 65 26 92/65 95 BIPAP 35% 11/16 2226 95.0 57 18 93/52 96 BIPAP 11/16 2208 67 95 11/16 2011 97.8 65 26 127/60 94 BIPAP 35% 11/16 1945 64 95 11/16 1942 95 Nasal 4.0L Cannula 11/16 1842 98.3 74 20 151/84 93 Nasal 3.0L Cannula Intake & Output 11/17 1600 11/17 0800 11/17 0000 Intake Total 0 Output Total 450 100 Balance -450 -100 Intake, IV 0 Intake, Oral 0 Number 0 Bowel Movements Output, Urine 450 100 Patient 306 lb 300 lb Weight Weight Bed scale Estimated Measurement Method Physical Exam General Appearance: on bipap Head: atraumatic Neck: normal inspection, JVD could not be assessed due to obesity Respiratory: chest non-tender, crackles, rhonchi Cardiovascular: s1 s2 Gastrointestinal: normal bowel sounds, soft, non-tender Extremities: pedal edema Last 48 Hrs of Labs/Aurelio: Laboratory Tests 11/17/17 0310: Troponin I 0.05 11/17/17 031: Anion Gap 11, Estimated GFR 39 L, Glucose 75, Calcium 8.8, Phosphorus 5.7 H, Magnesium 2.1, Total Bilirubin 0.3, AST 11 L, ALT 16 L, Albumin 3.1 L, CBC w Diff NO MAN DIFF REQ, RBC 3.61 L, MCV 79.7 L, MCH 24.2 L, MCHC 30.4 L, RDW 18.9 H, MPV 10.1, Gran % 78.8 H, Lymphocytes % 11.3 L, Monocytes % 5.3, Eosinophils % 3.9, Basophils % 0.7, Absolute Granulocytes 5.3, Absolute Lymphocytes 0.8 L, Absolute Monocytes 0.4, Absolute Eosinophils 0.3, Absolute Basophils 0 11/17/17 0145: pH 7.31 L, pCO2 61 *H, pO2 71 L, HCO3 30 H, ABG O2 Sat (Measured) 93.0 L, P- 50 (Temp Corrected) N, Carboxyhemoglobin 0.9 L, O2 Concentration % .35, Respiration Rate 28, O2 Delivery Method BIPAP, Vent Mode ST, Expiratory Pressure 6, Inspiratory Pressure 26, Phlebotomy Draw Site LEFT RADIAL 11/16/172109: pH 7.28 *L, pCO2 67 *H, pO2 87, HCO3 31 H, ABG O2 Sat (Measured) 95.0 L, P-50 (Temp Corrected) Y, Carboxyhemoglobin 1.2 L, O2 Concentration % 35%, Temperature 97.8, Respiration Rate 26, O2 Delivery Method BIPAP, Vent Mode ST, Expiratory Pressure 4, Inspiratory Pressure 24, Phlebotomy Draw Site RIGHT RADIAL 11/16/172108: CBC w Diff NO MAN DIFF REQ, RBC 4.09 L, MCV 80.2, MCH 24.4 L, MCHC 30.4 L, RDW 18.8 H, MPV 9.6, Gran % 79.0 H, Lymphocytes % 11.2 L, Monocytes % 6.2, Eosinophils % 2.6, Basophils % 1.0, Absolute Granulocytes 6.5, Absolute Lymphocytes 0.9 L, Absolute Monocytes 0.5, Absolute Eosinophils 0.2, Absolute Basophils 0.1 11/16/172009: Lactic Acid 1.5 11/16/172009: Anion Gap 12, Estimated GFR 39 L, BUN/Creatinine Ratio 17.1, Glucose 86, Calcium 9.0, Magnesium 2.1, Total Bilirubin 0.3, AST 14 L, ALT 11 L, Alkaline Phosphatase 54, Troponin I 0.05, Tvt-M-Sjlesubeswj Pept 4820 H, Total Protein 7.0, Albumin 3.6, Globulin 3.4, Albumin/Globulin Ratio 1.1, PT 11.0, INR 1.05, APTT 22 L, D-Dimer High Sensitivty 664 H 11/16/171929: Urinalysis LIGHT H, Urine Color YEL, Urine Clarity CLDY H, Urine pH 6.5, Ur Specific Lanse 1.025, Urine Protein 100 H, Urine Ketones NEG, Urine Nitrite NEG, Urine Bilirubin NEG, Urine Urobilinogen 0.2, Ur Leukocyte Esterase MOD H, Ur Microscopic SEDIMENT EXAMINED, Urine RBC 5-10 H, Urine WBC PACKD H, Urine Bacteria MANY H, Urine Hemoglobin LARGE H, Urine Glucose NEG 11/16/171919: pH 7.23 *L, pCO2 76 *H, pO2 92, HCO3 32 H, ABG O2 Sat (Measured) 95.0 L, P-50 (Temp Corrected) Y, Carboxyhemoglobin 0.9 L, O2 Concentration % 4L, Temperature 97.8, O2 Delivery Method NC, Phlebotomy Draw Site RIGHT RADIAL 11/16/171901: D-Dimer High Sensitivty Cancelled 11/16/17 1856: Lactic Acid Cancelled Diagnostic Data EKG Results sinus rhythm, HR 50's, PAC's, RBBB, LAFB, no acute changes CXR Results low lung volumes with moderate presumed pulmonary edema, nonspecific superimposed left lung base opacity ?atelectasis. Marked cardiomegaly. Small bilateral pleural effusions. Other Results CT head: no acute pathology. LE dopplers: no DVT. Echo (2018): EF >60%, mild concentric LVH, mild aortic stenosis. ABGs 7.23/76/92/32 on 4L ---> 7.28/67/87/31 on Bipap RR 26 (24/4) ---> 7.31/61/ 71/30 on Bipap RR 28 (/) Assessment/Plan CRCU Impression/Plan: The patient is 77-year-old gentleman with past medical history of morbid obesity , paroxysmal atrial fibrillation not on any anticoagulation, COPD on 2 L home oxygen, OHS, CAD, hypertension, chronic diastolic heart failure, CKD stage III, chronic Garza due to BPH/incontinence and strictures and depression. Patient is resident of [facility] and was sent in with complaint of lethargy, altered mental status and hypoxia. The patient was being evaluated and treated for altered mental status likely secondary to acute on chronic hypercarbic and hypoxic respiratory failure ( multifactorial) in ICU #Acute on chronic hypercapnic and hypoxic respiratory failure multifactorial; acute on chronic diastolic heart failure, Mild acute exacerbation of COPD with underlying MICAH/OHA Patient was admitted to ICU overnight and started on BiPAP. He also received 40 mg IV Lasix. -Continue TRC nebs -IV steroids tapered Solu-Medrol every 12 -Continue IV Lasix BID -Cardiology consult with Dr. Luther -ABGs improving 7.32/60/106 -Reinforce compliance with oxygen therapy. -Continue BiPAP and transition to nasal cannula -If persistently hypoxic, consider VQ scan to rule out PE, LE dopplers negative, unable to do CTA due to CKD #Altered mental status likely secondary to hypercapnia and hypoxia - Resolved -Continue BiPAP and transition to nasal cannula -Gabapentin, trazodone, mirtazapine on hold #Left lung base opacity likely atelectasis Present on previous admission as well. Pneumonia unlikely in setting of No fever/white count. -Monitor fever and WBC curve -Monitor off antibiotics #Chronic garza catheter with urine contamination Patient received IV ceftriaxone in the ER for possible UTI -Monitor fever and WBC curve -Follow up with the cultures -Monitor off antibiotics #CKD stage III: Creatinine at baseline around 1.7 -Avoid nephrotoxins medications. #Chronic medical conditions hypertension, CAD, atrial fibrillation and depression -Continue amiodrone, amlodpine on hold 2/2 borderline blood pressure -Consider restarting sertraline #DVT prophylaxis with subcutaneous heparin #Diet advanced to pure/regular liquids after swallow evaluation #DNR/DNI Consult Acknowledgment - Thank you for your consult request. Keith TEAGUE,Erwin 11/17/17 1025: Assessment/Plan CRCU Other Findings/Comments: Erwin García M.D. have examined this patient, reviewed available EMR data, personally reviewed images, discussed with resident/PA/OPERATIONS EXAMINER, discussed management plan with housestaff and nursing staff, discussed managment plan all of healthcare providers, discussed management plan with patient and/or family, agreed with resident/PA/OPERATIONS EXAMINER. The past history and parts of the chart have been autopopulated. Impression 77 year old man * acute on chronic hypercarbic and hypoxemic respiratory failure, hx of chf, micah /ohs, copd, non-adherence to therapy Plan -reduce solumedrol to 40mg iv q12h, doubt sig exacerbation -will d/w family goals of care - pt declines therapy at nursing facility -DNR/DNI, no pressors -f/u cardiology, if okay with consultants will DG to GM -TRC/Nebs DVT prophylaxis at all times TTS 40 min Consult Acknowledgment - Thank you for your consult request.
[2017-11-17 08:00] VITALS: BP 120/70
--- NOTE | 2017-11-17 12:15 | Cons- Cardiology ---
General Information and HPI Consulting Request Date of Consult: 11/17/17 Requested By: Emanuel TEAGUE,Bladimir Reason for Consult: Paroxysmal atrial fibrillation, shortness of breath History of Present Illness: The patient is a 77-year-old male with history of hypertension, COPD, paroxysmal atrial fibrillation, and chronic renal insufficiency. He was previously admitted 1 week ago with acute hypoxic respiratory failure. He improved clinically and was discharged back to his half-way. He is now sent back to the hospital because he was found to be unresponsive at the half-way with an oxygen saturation in the 70s, not responding to nonrebreather mask. The patient is able to give only limited history. He reports that he is feeling well. He is not currently complaining of shortness of breath. No chest pain. No palpitations. No diaphoresis. No lightheadedness or dizziness. No nausea or vomiting. He has been reported to be noncompliant with his oxygen and medications. Allergies/Medications Allergies: Coded Allergies: No Known Allergies (07/02/17) Home Med List: Acetaminophen 325 MG TABLET 2 TAB PO Q6-8P PAIN CONTROL (Reported) Allopurinol 100 MG TABLET 1 TAB PO DAILY GOUT (Reported) Amiodarone (Cordarone) 200 MG TAB 1 TAB PO DAILY AFIB (Reported) Amlodipine Besylate 5 MG TABLET 1 TAB PO DAILY HTN (Reported) Calcium Carbonate/Vitamin D3 (Caltrate 600 + D Tablet) 600 MG-800 TABLET 1 TAB PO DAILY SUPPLEMENT (Reported) Calcium Polycarbophil (Fibercon) 625 MG TABLET 1 TAB PO BID PRN CONSTIPATION (Reported) Gabapentin 300 MG CAPSULE 1 CAP PO BID NEUROPATHY (Reported) Lidocaine (Aspercreme) 4 % ADH..PATCH 1 PATCH TD DAILY PAIN CONTROL (Reported ) Mirtazapine (Remeron) 30 MG TABLET 0.5 TAB PO QPM MENTAL HEALTH (Reported) Naloxone HCl 0.4 MG/ML VIAL 1 YOCASTA MAYUR NEEDED OPOID INDUCED RESP DISTRESS ( Reported) Sertraline HCl (Zoloft) 100 MG TABLET 1 TAB PO DAILY DEPRESSION (Reported) Trazodone HCl 50 MG TABLET 0.5 TAB PO QHS MENTAL HEALTH (Reported) Current Medications: Current Medications Sig/Frandy Start time Last Medication Dose Route Stop Time Status Admin Albuterol Sulfate 3 ML Q4P PRN 11/17 1100 AC INH Amiodarone HCl 200 MG DAILY 11/17 1000 AC 11/17 PO 1017 Amlodipine Besylate 5 MG DAILY 11/17 1000 AC 11/17 PO 1016 Ceftriaxone Sodium 0 .STK-MED ONE 11/16 2203 DC .ROUTE Ceftriaxone Sodium 1,000 MG ONCE ONE 11/16 2114 DC 11/16 IV 11/16 Furosemide 40 MG DAILY 11/17 1000 AC 11/17 IV 1017 Furosemide 40 MG ONCE ONE 11/16 2044 DC 11/16 IV 11/16 Furosemide 0 .STK-MED ONE 11/16 2044 DC IV Gabapentin 300 MG BID 11/17 1000 CAN PO Heparin Sodium 5,000 UNIT Q8 11/17 0600 AC 11/17 (Porcine) SC 0644 Methylprednisolone 40 MG Q12 11/17 0145 AC 11/17 IV 1017 Mirtazapine 15 MG QPM 11/17 2199 CAN PO Nitroglycerin 0 .STK-MED ONE 11/16 2203 DC TOP Nitroglycerin 1 GM ONCE ONE 11/16 2114 DC 11/16 TOP 11/16 Pantoprazole Sodium 40 MG DAILY 11/17 1000 AC 11/17 IV 1017 Sertraline HCl 100 MG DAILY 11/17 1000 CAN PO Trazodone HCl 25 MG .[QHS] 11/17 0300 DC PO Review of Systems Review of Systems: No rash. No tremor. No melena. All other systems were reviewed, and were noted to be negative. 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 Surgical History Surgical History: 1 . Family History Relations & Conditions If Any: BROTHER (Brain tumor). FATHER Relation not specified for: FH: hypertension Psychosocial History Where Do You Live? Extended Care Facility Who Do You Live With? spouse Services at Home: Nursing Smoking Status: Unknown If Ever Smoked Functional Ability ADLs Needs Assist: dressing, eating, toileting, bathing. Ambulation: OFTEN USES WHEELCHAIR IADLs Independent: shopping, housework, finances, food prep, telephone, transportation , medication admin. Exam & Diagnostic Data Vital Signs and I&O Vital Signs Date Time Temp Pulse Resp B/P B/P Pulse O2 O2 Flow FiO2 Mean Ox Delivery Rate 11/17 1049 Nasal 3.0L Cannula 11/17 1017 61 127/88 11/17 1016 61 127/88 11/17 0845 93 Nasal 3.0L Cannula 11/17 0845 50 96 11/17 0643 70 95 11/17 0400 95 BIPAP 35% 11/17 0339 56 95 11/17 0200 97 BIPAP 35% 11/17 0132 97.3 54 22 120/57 95 BIPAP 35% 11/17 0031 54 26 120/70 95 BIPAP 11/17 0018 66 96 11/16 2349 62 26 94/64 95 BIPAP 11/16 2256 97.8 65 26 92/65 95 BIPAP 35% 11/16 2226 95.0 57 18 93/52 96 BIPAP 11/16 2209 67 95 11/16 2011 97.8 65 26 127/60 94 BIPAP 35% 11/16 1946 64 95 11/16 1943 95 Nasal 4.0L Cannula 11/16 1843 98.3 74 20 151/84 93 Nasal 3.0L Cannula Intake & Output 11/17 1600 11/17 0800 11/17 0000 11/16 1600 11/16 0800 11/16 0000 Intake Total 0 Output Total 450 100 Balance -450 -100 Intake, IV 0 Intake, Oral 0 Number 0 Bowel Movements Output, Urine 450 100 Patient 306 lb 300 lb Weight Weight Bed scale Estimated Measurement Method Physical Exam: Gen: The patient is in no acute distress HEENT: Normal nose, ears, and oropharynx. Pupils equal bilaterally. Conjunctiva normal. Neck: Supple with no JVD, no masses, and no thyromegaly Lungs: Decreased breath sounds with normal respiratory effort Heart: RRR, S1, S2, no murmurs. No peripheral edema, 2+ pulses in the lower extremities bilaterally Abdomen: Soft, nontender, no masses. No hepatomegaly. No splenomegaly Extremities: No clubbing or cyanosis. Normal muscle strength in the upper and lower extremities Skin: Normal skin turgor with no skin ulcers or lesions noted. Neuro: Cranial nerves intact. Sensation intact Psych: Alert and oriented - 3 with appropriate affect Labs/Aurelio Results: Laboratory Tests 11/17 11/17 11/17 11/17 1010 0850 0600 0310 Blood Gas pH (7.35 - 7.45 PH) 7.32 L pCO2 (35 - 45 TORR) 60 *H pO2 (80 - 100 TORR) 106 H HCO3 (21 - 28 MEQ/L) 31 H ABG O2 Sat (Measured) (>96.0 %) 97.0 Carboxyhemoglobin (1.5 - 5.0 %) 0.5 L O2 Concentration % 35% Respiration Rate (BPM) 28 O2 Delivery Method BIPAP Vent Mode ST Expiratory Pressure (CM H2O P) 6 Inspiratory Pressure (CM H2O P) 26 Chemistry Troponin I (<0.11 ng/ml) Pending 0.05 TSH Pending Cancelled Free T4 Pending Cancelled Miscellaneous Phlebotomy Draw Site LEFT RADIAL 11/17 11/17 0310 0145 Blood Gas pH (7.35 - 7.45 PH) 7.31 L pCO2 (35 - 45 TORR) 61 *H pO2 (80 - 100 TORR) 71 L HCO3 (21 - 28 MEQ/L) 30 H ABG O2 Sat (Measured) (>96.0 %) 93.0 L P-50 (Temp Corrected) N Carboxyhemoglobin (1.5 - 5.0 %) 0.9 L O2 Concentration % .35 Respiration Rate (BPM) 28 O2 Delivery Method BIPAP Vent Mode ST Expiratory Pressure (CM H2O P) 6 Inspiratory Pressure (CM H2O P) 26 Chemistry Sodium (137 - 145 mmol/L) 143 Potassium (3.5 - 5.1 mmol/L) 4.5 Chloride (98 - 107 mmol/L) 104 Carbon Dioxide (22 - 30 mmol/L) 29 Anion Gap (5 - 16) 11 BUN (9 - 20 mg/dL) 29 H Creatinine (0.7 - 1.2 mg/dL) 1.7 H Estimated GFR (>60 ml/min) 39 L Glucose (65 - 99 mg/dL) 75 Calcium (8.4 - 10.2 mg/dL) 8.8 Phosphorus (2.5 - 4.5 mg/dL) 5.7 H Magnesium (1.6 - 2.3 mg/dL) 2.1 Total Bilirubin (0.2 - 1.3 mg/dL) 0.3 AST (17 - 59 U/L) 11 L ALT (21 - 72 U/L) 16 L Albumin (3.5 - 5.0 g/dL) 3.1 L Hematology CBC w Diff NO MAN DIFF REQ WBC (4.8 - 10.8 /CUMM) 6.8 RBC (4.70 - 6.10 /CUMM) 3.61 L Hgb (14.0 - 18.0 G/DL) 8.7 L Hct (42 - 52 %) 28.8 L MCV (80.0 - 94.0 FL) 79.7 L MCH (27.0 - 31.0 PG) 24.2 L MCHC (33.0 - 37.0 G/DL) 30.4 L RDW (11.5 - 14.5 %) 18.9 H Plt Count (130 - 400 /CUMM) 194 MPV (7.4 - 10.4 FL) 10.1 Gran % (42.2 - 75.2 %) 78.8 H Lymphocytes % (20.5 - 51.1 %) 11.3 L Monocytes % (1.7 - 9.3 %) 5.3 Eosinophils % (0 - 5 %) 3.9 Basophils % (0.0 - 2.0 %) 0.7 Absolute Granulocytes (1.4 - 6.5 /CUMM) 5.3 Absolute Lymphocytes (1.2 - 3.4 /CUMM) 0.8 L Absolute Monocytes (0.10 - 0.60 /CUMM) 0.4 Absolute Eosinophils (0.0 - 0.7 /CUMM) 0.3 Absolute Basophils (0.0 - 0.2 /CUMM) 0 Miscellaneous Phlebotomy Draw Site LEFT RADIAL 11/16 Blood Gas pH (7.35 - 7.45 PH) 7.28 *L pCO2 (35 - 45 TORR) 67 *H pO2 (80 - 100 TORR) 87 HCO3 (21 - 28 MEQ/L) 31 H ABG O2 Sat (Measured) (>96.0 %) 95.0 L P-50 (Temp Corrected) Y Carboxyhemoglobin (1.5 - 5.0 %) 1.2 L O2 Concentration % 35% Temperature (97.0 - 100.0 FARH) 97.8 Respiration Rate (BPM) 26 O2 Delivery Method BIPAP Vent Mode ST Expiratory Pressure (CM H2O P) 4 Inspiratory Pressure (CM H2O P) 24 Chemistry Lactic Acid (0.7 - 2.1 mmol/L) 1.5 Hematology CBC w Diff NO MAN DIFF REQ WBC (4.8 - 10.8 /CUMM) 8.2 RBC (4.70 - 6.10 /CUMM) 4.09 L Hgb (14.0 - 18.0 G/DL) 10.0 L Hct (42 - 52 %) 32.8 L MCV (80.0 - 94.0 FL) 80.2 MCH (27.0 - 31.0 PG) 24.4 L MCHC (33.0 - 37.0 G/DL) 30.4 L RDW (11.5 - 14.5 %) 18.8 H Plt Count (130 - 400 /CUMM) 192 MPV (7.4 - 10.4 FL) 9.6 Gran % (42.2 - 75.2 %) 79.0 H Lymphocytes % (20.5 - 51.1 %) 11.2 L Monocytes % (1.7 - 9.3 %) 6.2 Eosinophils % (0 - 5 %) 2.6 Basophils % (0.0 - 2.0 %) 1.0 Absolute Granulocytes (1.4 - 6.5 /CUMM) 6.5 Absolute Lymphocytes (1.2 - 3.4 /CUMM) 0.9 L Absolute Monocytes (0.10 - 0.60 /CUMM) 0.5 Absolute Eosinophils (0.0 - 0.7 /CUMM) 0.2 Absolute Basophils (0.0 - 0.2 /CUMM) 0.1 Miscellaneous Phlebotomy Draw Site RIGHT RADIAL 11/16 193 Chemistry Sodium (137 - 145 mmol/L) 143 Potassium (3.5 - 5.1 mmol/L) 5.0 Chloride (98 - 107 mmol/L) 101 Carbon Dioxide (22 - 30 mmol/L) 29 Anion Gap (5 - 16) 12 BUN (9 - 20 mg/dL) 29 H Creatinine (0.7 - 1.2 mg/dL) 1.7 H Estimated GFR (>60 ml/min) 39 L BUN/Creatinine Ratio (7 - 25 %) 17.1 Glucose (65 - 99 mg/dL) 86 Calcium (8.4 - 10.2 mg/dL) 9.0 Magnesium (1.6 - 2.3 mg/dL) 2.1 Total Bilirubin (0.2 - 1.3 mg/dL) 0.3 AST (17 - 59 U/L) 14 L ALT (21 - 72 U/L) 11 L Alkaline Phosphatase (< 127 U/L) 54 Troponin I (<0.11 ng/ml) 0.05 [id number] Pept (<125 pg/mL) 4820 H Total Protein (6.3 - 8.2 g/dL) 7.0 Albumin (3.5 - 5.0 g/dL) 3.6 Globulin (1.9 - 4.2 gm/dL) 3.4 Albumin/Globulin Ratio (1.1 - 2.2 %) 1.1 Coagulation PT (9.4 - 12.5 SEC) 11.0 INR (0.90 - 1.17) 1.05 APTT (25 - 37 SEC) 22 L D-Dimer High Sensitivty (0 - 243 ng/ml) 664 H Urines Urinalysis LIGHT H Urine Color (YEL,AMB,STR) YEL Urine Clarity (CLEAR) CLDY H Urine pH (5.0 - 8.0) 6.5 Ur Specific [place] (1.001 - 1.035) 1.025 Urine Protein (NEG,<30 MG/DL) 100 H Urine Ketones (NEG) NEG Urine Nitrite (NEG) NEG Urine Bilirubin (NEG) NEG Urine Urobilinogen (0.1 - 1.0 EU/dl) 0.2 Ur Leukocyte Esterase (NEG) MOD H Ur Microscopic SEDIMENT EXAMINED Urine RBC (0 - 5 /HPF) 5-10 H Urine WBC (0 - 2 /HPF) PACKD H Urine Bacteria (NEG/NONE) MANY H Urine Hemoglobin (NEG) LARGE H Urine Glucose (N MG/DL) NEG 11/16 190 1856 Blood Gas pH (7.35 - 7.45 PH) 7.23 *L pCO2 (35 - 45 TORR) 76 *H pO2 (80 - 100 TORR) 92 HCO3 (21 - 28 MEQ/L) 32 H ABG O2 Sat (Measured) (>96.0 %) 95.0 L P-50 (Temp Corrected) Y Carboxyhemoglobin (1.5 - 5.0 %) 0.9 L O2 Concentration % 4L Temperature (97.0 - 100.0 FARH) 97.8 O2 Delivery Method NC Chemistry Lactic Acid Cancelled Coagulation D-Dimer High Sensitivty Cancelled Miscellaneous Phlebotomy Draw Site RIGHT RADIAL Diagnostic Data EKG Results EKG tracing is independently reviewed, and reveals sinus rhythm at a rate of 60 with baseline artifact CXR Results Chest x-ray: Low lung volumes with moderate presumed pulmonary edema. Nonspecific superimposed opacity at the left lung base. Other Results Head CT: Negative Bilateral lower extremity Doppler study 11/16/17: Normal triplex scan without evidence of deep venous thrombosis involving the lower extremities. Echocardiogram 11/12/17: Normal size left ventricle. Mild concentric left ventricular hypertrophy. Normal left ventricular ejection fraction visually estimated at >60 Mild mitral annular calcification. Trace mitral regurgitation. Mild aortic stenosis. Mildly dilated ascending aorta. Mild tricuspid regurgitation. Assessment/Plan Assessment/Plan The patient is a 77-year-old male with history of severe COPD paroxysmal atrial fibrillation, chronic kidney disease, and chronic diastolic heart failure who is admitted with altered mental status, which is likely secondary to acute hypoxic and hypercarbic respiratory failure secondary to COPD. His troponin level is normal. ProBNP is mildly elevated, and is similar to the level during his prior admission. Renal function is at his baseline. Chest x-ray is consistent with possible acute on chronic diastolic heart failure. Recommendations: * I recommend diuresis with Lasix 40 mg IV every 12 hours * Monitor input and output with daily weights * Given the recent hypotension, I recommend discontinuing amlodipine for now, and restarting if elevated blood pressure develops. Consult Acknowledgment - Thank you for your consult request.
[2017-11-17 12:30] VITALS: BP 102/78
[2017-11-17 16:00] VITALS: BP 108/80
[2017-11-17 18:11] VITALS: BP 114/68
[2017-11-17 22:46] VITALS: BP 120/68
[2017-11-18 05:28] VITALS: BP 118/70
--- NOTE | 2017-11-18 07:29 | PN- Housestaff ---
See Addendum Subjective Follow-up For: acute on chronic chf Subjective: Patient transferred from ICU last night. He is very hard of hearing. He was requesting food this morning, saying he is starving. No CP, SOB, or other complaints. Review of Systems Constitutional: Reports: no symptoms. EENTM: Reports: no symptoms. Cardiovascular: Reports: no symptoms. Respiratory: Reports: no symptoms. Gastrointestinal: Reports: no symptoms. Genitourinary: Reports: see HPI. Musculoskeletal: Reports: no symptoms. Skin: Reports: no symptoms. Neurological/Psychological: Reports: no symptoms. Hematologic/Endocrine: Reports: no symptoms. Immunologic/Allergic: Reports: no symptoms. Objective Last 24 Hrs of Vital Signs/I&O Vital Signs Date Time Temp Pulse Resp B/P B/P Pulse O2 O2 Flow FiO2 Mean Ox Delivery Rate 11/18 0528 98.5 57 22 118/70 94 Nasal 2.0L Cannula 11/18 0316 55 93 11/18 0000 Nasal 2.0L Cannula 11/17 2246 98.8 65 20 120/68 92 Nasal 2.0L Cannula 11/17 1811 98.9 66 20 114/68 92 Nasal 2.0L Cannula 11/17 1600 98.2 75 24 108/80 93 Nasal 2.0L Cannula 11/17 1600 93 Nasal 2.0L Cannula 11/17 1445 93 Nasal 2.0L Cannula 11/17 1230 97.3 56 16 102/78 96 Nasal 2.0L Cannula 11/17 1049 Nasal 3.0L Cannula 11/17 1017 61 127/88 11/17 1016 61 127/88 11/17 0845 93 Nasal 3.0L Cannula 11/17 0845 50 96 11/17 0800 96.0 60 27 120/70 95 BIPAP 35% 11/17 0800 95 BIPAP 35% Intake & Output 11/18 0800 11/18 0000 11/17 1600 Intake Total 340 505 Output Total 800 250 850 Balance -800 90 -345 Intake, IV 45 Intake, Oral 340 460 Number 1 0 Bowel Movements Output, Urine 800 250 850 Patient 136.078 kg Weight Physical Exam General Appearance: Alert, Oriented X3, Cooperative, No Acute Distress Cardiovascular: Regular Rate, Normal S1, Normal S2 Lungs: difficult to assess given body habitus Abdomen: Normal Bowel Sounds, Soft, No Tenderness, obese Neurological: Normal Speech Extremities: tender ankles with pitting edema Current Medications: Current Medications Sig/Frandy Start time Last Medication Dose Route Stop Time Status Admin Acetaminophen 650 MG ONCE ONE 11/18 0645 DC 11/18 PO 11/18 0646 0657 Acetaminophen 650 MG ONCE ONE 11/18 0100 DC 11/18 PO 11/18 0101 0109 Albuterol Sulfate 3 ML Q4P PRN 11/17 1100 AC INH Amiodarone HCl 200 MG DAILY 11/17 1000 AC 11/17 PO 1017 Amlodipine Besylate 5 MG DAILY 11/17 1000 DC 11/17 PO 1016 Furosemide 40 MG BID 11/17 2200 AC 11/17 IV 2227 Furosemide 40 MG DAILY 11/17 1000 DC 11/17 IV 1017 Heparin Sodium 5,000 UNIT Q8 11/17 0600 AC 11/18 (Porcine) SC 0626 Melatonin 5 MG 11/18 DC PO Melatonin 5 MG 11/18 0230 AC 11/18 PO 0259 Methylprednisolone 40 MG Q12 11/17 0145 AC 11/17 IV 2227 Pantoprazole Sodium 40 MG DAILY 11/17 1000 AC 11/17 IV 1017 Last 24 Hrs of Lab/Aurelio Results Last 24 Hrs of Labs/Mics: Laboratory Tests 11/18/17 0710: Sodium Pending, Potassium Pending, Chloride Pending, Carbon Dioxide Pending, Anion Gap Pending, BUN Pending, Creatinine Pending, BUN/Creatinine Ratio Pending , CBC w Diff Pending, WBC Pending, RBC Pending, Hgb Pending, Hct Pending, MCV Pending, MCH Pending, MCHC Pending, RDW Pending, Plt Count Pending, MPV Pending 11/18/17 0500: Sodium Cancelled, Potassium Cancelled, Chloride Cancelled, Carbon Dioxide Cancelled, Anion Gap Cancelled, BUN Cancelled, Creatinine Cancelled, Glucose Cancelled, Calcium Cancelled, Phosphorus Cancelled, Magnesium Cancelled, Total Bilirubin Cancelled, AST Cancelled, ALT Cancelled, Albumin Cancelled, CBC w Diff Cancelled, WBC Cancelled, RBC Cancelled, Hgb Cancelled, Hct Cancelled, MCV Cancelled, MCH Cancelled, MCHC Cancelled, RDW Cancelled, Plt Count Cancelled, MPV Cancelled 11/17/17 1010: Troponin I 0.05, TSH 0.608, Free T4 2.07 11/17/17 0850: pH 7.32 L, pCO2 60 *H, pO2 106 H, HCO3 31 H, ABG O2 Sat (Measured) 97.0, Carboxyhemoglobin 0.5 L, O2 Concentration % 35%, Respiration Rate 28, O2 Delivery Method BIPAP, Vent Mode ST, Expiratory Pressure 6, Inspiratory Pressure 26, Phlebotomy Draw Site LEFT RADIAL Assessment/Plan Assessment: The patient is 77-year-old gentleman with past medical history of morbid obesity , paroxysmal atrial fibrillation not on any anticoagulation, COPD on 2 L home oxygen, OHS, CAD, hypertension, chronic diastolic heart failure, CKD stage III, chronic Fleming due to BPH/incontinence and strictures and depression who presented from [facility] with lethargy, altered mental status and hypoxia. He was initially admitted to the ICU for acute hypoxic respiratory failure secondary to acute on chronic heart failure and was transferred to general medicine yesterday. Problem list: 1. Acute on chronic hypercapnic hypoxic respiratory failure 2. Acute on chronic heart failure 3. Altered mental status #Acute on chronic hypercapnic and hypoxic respiratory failure: Patient presented with respiratory failure. It seems like he was not using his oxygen or CPAP machine at home. Cardiology evaluated and thinks it was likely secondary to heart failure. -Continue TRC nebs -Taper steroids -Continue IV Lasix BID -Appreciate cardiology recommendations -Reinforce compliance with oxygen therapy #Altered mental status likely secondary to hypercapnia and hypoxia - Resolved -CTM #Chronic medical conditions: hypertension, CAD, atrial fibrillation and depression -Continue home meds DVT prophylaxis with subcutaneous heparin pure/regular liquids DNR/DNI Problem List: 1. Acute exacerbation of CHF (congestive heart failure) Pain Ratin Pain Location: no Pain Goal: Remain pain free Pain Plan: see a/p Tomorrow's Labs & Rationales: no
[2017-11-18 08:02] LABS: ABSOLUTE BASOPHIL COUNT 0 /CUMM (0.0-0.2); ABSOLUTE EOSINOPHIL COUNT 0 /CUMM (0.0-0.7); ABSOLUTE GRANULOCYTE CT 5.6 /CUMM (1.4-6.5); ABSOLUTE LYMPH COUNT 0.5 /CUMM (1.2-3.4); ABSOLUTE MONOCYTE COUNT 0 /CUMM (0.10-0.60); BASOPHIL % 0 % (0.0-2.0); EOSINOPHIL % 0.1 % (0-5); GRANULOCYTE % 90.9 % (42.2-75.2); HEMATOCRIT 27.3 % (42-52); MEAN CORPUSCULAR HGB 24.5 PG (27.0-31.0); MEAN CORPUSCULAR HGB CONC 31.1 G/DL (33.0-37.0); MEAN CORPUSCULAR VOLUME 78.9 FL (80.0-94.0); MEAN PLATELET VOLUME 10.5 FL (7.4-10.4); PLATELET COUNT 193 /CUMM (130-400); RED BLOOD CELL CT 3.46 /CUMM (4.70-6.10)
--- NOTE | 2017-11-18 08:14 | PN- Pulmonary ---
Subjective HPI/Critical Care Issues: Patient is awake alert and able to feed himself. Arterial blood gases likely at baseline Objective Current Medications: Current Medications Sig/Frandy Start time Last Medication Dose Route Stop Time Status Admin Acetaminophen 650 MG ONCE ONE 11/18 0645 DC 11/18 PO 11/18 0646 0657 Acetaminophen 650 MG ONCE ONE 11/18 0100 DC 11/18 PO 11/18 0101 0109 Albuterol Sulfate 3 ML Q4P PRN 11/17 1100 AC INH Amiodarone HCl 200 MG DAILY 11/17 1000 AC 11/17 PO 1017 Amlodipine Besylate 5 MG DAILY 11/17 1000 DC 11/17 PO 1016 Furosemide 40 MG BID 11/17 2200 AC 11/17 IV 2227 Furosemide 40 MG DAILY 11/17 1000 DC 11/17 IV 1017 Heparin Sodium 5,000 UNIT Q8 11/17 0600 AC 11/18 (Porcine) SC 0626 Melatonin 5 MG 2200 11/18 2200 DC PO Melatonin 5 MG 2200 11/18 0230 AC 11/18 PO 0259 Methylprednisolone 40 MG Q12 11/17 0145 AC 11/17 IV 2227 Pantoprazole Sodium 40 MG DAILY 11/17 1000 AC 11/17 IV 1017 Vital Signs & I&O Last 24 Hrs of Vitals and I&O: Vital Signs Date Time Temp Pulse Resp B/P B/P Pulse O2 O2 Flow FiO2 Mean Ox Delivery Rate 11/18 0528 98.5 57 22 118/70 94 Nasal 2.0L Cannula 11/18 0316 55 93 11/18 0000 Nasal 2.0L Cannula 11/17 2246 98.8 65 20 120/68 92 Nasal 2.0L Cannula 11/17 1811 98.9 66 20 114/68 92 Nasal 2.0L Cannula 11/17 1600 98.2 75 24 108/80 93 Nasal 2.0L Cannula 11/17 1600 93 Nasal 2.0L Cannula 11/17 1445 93 Nasal 2.0L Cannula 11/17 1230 97.3 56 16 102/78 96 Nasal 2.0L Cannula 11/17 1049 Nasal 3.0L Cannula 11/17 1017 61 127/88 11/17 1016 61 127/88 11/17 0845 93 Nasal 3.0L Cannula 11/17 0845 50 96 Intake & Output 11/18 1600 11/18 0800 11/18 0000 Intake Total 340 Output Total 800 250 Balance -800 90 Intake, Oral 340 Number 1 Bowel Movements Output, Urine 800 250 Patient 300 lb Weight Since saturation 2 L 94% exam of his chest shows decreased breath sounds the bases there are no wheezes cardiac exam shows a regular rhythm Impression/Plan Impression/Plan Impression/Plan: 77-year-old gentleman admitted with recurrent acute on chronic hypercapnic respiratory failure is improved. Recommendations: DC Solu-Medrol begin prednisone taper continue negative fluid balance Taper FiO2 his saturations allow continue nocturnal BiPAP.
[2017-11-18 09:24] LABS: WHITE BLOOD CELL COUNT 6.2 /CUMM (4.8-10.8)
--- NOTE | 2017-11-18 09:57 | RADIOLOGY REPORT ---
EXAMINATION: XR PORTABLE CHEST CLINICAL INFORMATION: CHF acute on chronic. COMPARISON: Portable chest x-ray dated 11/16/2017, at 6:56 PM. TECHNIQUE: Portable frontal view of the chest was obtained. FINDINGS: Stable cardiomegaly. Again noted is fluid within both major and minor fissures. There is increased pulmonary interstitial markings with peribronchial cuffing and slightly decreased right lung volume, consistent with minimally worsening pulmonary edema. IMPRESSION: Minimally increasing pulmonary edema by comparison with the prior study of 11/16/2017.
--- NOTE | 2017-11-18 10:26 | Patient Discharge Instructions ---
Discharge Instructions General Discharge Information You were seen/treated for: Acute on chronic heart failure Watch for these problems: Fever, chest pain, shortness of breath Special Instructions: Please take all medications as directed. Please follow-up with primary care. Please follow up with cardiology. Please check basic metabolic panel in a few days. Diet Continue normal diet: Yes Activity Full Activity/No Limits: Yes Acute Coronary Syndrome Inclusion Criteria At DC or during hospital stay patient has or had the following: ACS DIAGNOSIS No Discharge Core Measures Meds if any: Prescribed or Continued at Discharge Meds if any: NOT Prescribed or Continued at Discharge Congestive Heart Failure Inclusion Criteria At DC or during hospital stay patient has or had the following: CHF DIAGNOSIS Yes Discharge Core Measures Meds if any: Prescribed or Continued at Discharge Meds if any: NOT Prescribed or Continued at Discharge Cerebrovascular accident Inclusion Criteria At DC or during hospital stay patient has or had the following: CVA/TIA Diagnosis No Discharge Core Measures Meds if any: Prescribed or Continued at Discharge Meds if any: NOT Prescribed or Continued at Discharge Venous thromboembolism Inclusion Criteria VTE Diagnosis No VTE Type NONE VTE Confirmed by (Test) NONE Discharge Core Measures - Per Current guidelines, there needs to be overlap - treatment for the first 5 days of Warfarin therapy. - If discharged on Warfarin prior to 5 days of - overlap therapy, the patient will need to be - assessed for post discharge needs including - *Post discharge parental anticoagulation - *Warfarin and/or parental anticoagulation education - *Follow up date to check INR post discharge At least 5 days overlap therapy as Inpatient No Meds if any: Prescribed or Continued at Discharge Note: Overlap Therapy is Warfarin and Anticoagulant Meds if any: NOT Prescribed or Continued at Discharge
[2017-11-18] MEDS ORDERED: PREDNISONE10 M2 PO (10:32)
[2017-11-18] MEDS ORDERED: FUROSEMIDE20 M1 PO (11:49)
--- NOTE | 2017-11-18 12:53 | PN- Cardiology ---
Subjective Subjective: no significant clinical changes. Respiratory status stable. Intake/output about 1200 cc negative since admission. Objective Vital Signs and I&Os Vital Signs Date Time Temp Pulse Resp B/P B/P Pulse O2 O2 Flow FiO2 Mean Ox Delivery Rate 11/18 1056 93 Nasal 2.0L Cannula 11/18 1022 57 118/70 11/18 0528 98.5 57 22 118/70 94 Nasal 2.0L Cannula 11/18 0316 55 93 11/18 0000 Nasal 2.0L Cannula 11/17 2246 98.8 65 20 120/68 92 Nasal 2.0L Cannula 11/17 1811 98.9 66 20 114/68 92 Nasal 2.0L Cannula 11/17 1600 98.2 75 24 108/80 93 Nasal 2.0L Cannula 11/17 1600 93 Nasal 2.0L Cannula 11/17 1445 93 Nasal 2.0L Cannula Intake & Output 11/18 1600 11/18 0800 11/18 0000 11/17 1600 11/17 0800 11/17 0000 Intake Total 340 505 0 Output Total 800 250 850 450 100 Balance -800 90 -345 -450 -100 Intake, IV 45 0 Intake, Oral 340 460 0 Number 1 1 0 0 Bowel Movements Output, Urine 800 250 850 450 100 Patient 300 lb 306 lb 300 lb Weight Weight Bed scale Estimated Measurement Method Current Medications: Current Medications Sig/Frandy Start time Last Medication Dose Route Stop Time Status Admin Acetaminophen 650 MG ONCE ONE 11/18 0645 DC 11/18 PO 11/18 0646 0657 Acetaminophen 650 MG ONCE ONE 11/18 0100 DC 11/18 PO 11/18 0101 0109 Albuterol Sulfate 3 ML Q4P PRN 11/17 1100 AC INH Allopurinol 100 MG DAILY 11/18 1036 AC PO Amiodarone HCl 200 MG DAILY 11/17 1000 AC 11/18 PO 1022 Furosemide 20 MG DAILY 11/19 1000 AC PO Furosemide 40 MG BID 11/17 2200 DC 11/18 IV 1024 Heparin Sodium 5,000 UNIT Q8 11/17 0600 AC 11/18 (Porcine) SC 0626 Melatonin 5 MG 11/18 DC PO Melatonin 5 MG 11/18 0230 AC 11/18 PO 0259 Methylprednisolone 40 MG Q12 11/17 0145 DC 11/18 IV 1021 Omeprazole 40 MG DAILY AC 11/19 0700 AC PO Pantoprazole Sodium 40 MG DAILY 11/17 1000 DC 11/18 IV 1024 Prednisone 40 MG DAILY 11/19 1000 AC PO Sertraline HCl 100 MG DAILY 11/18 1037 AC PO Results Last 48 Hrs of Labs/Mics: Laboratory Tests 11/18/17 0710: Anion Gap 11, Estimated GFR 33 L, BUN/Creatinine Ratio 20.5, CBC w Diff NO MAN DIFF REQ, RBC 3.46 L, MCV 78.9 L, MCH 24.5 L, MCHC 31.1 L, RDW 18.0 H, MPV 10.5 H, Gran % 90.9 H, Lymphocytes % 8.5 L, Monocytes % 0.5 L, Eosinophils % 0.1, Basophils % 0, Absolute Granulocytes 5.6, Absolute Lymphocytes 0.5 L, Absolute Monocytes 0 L, Absolute Eosinophils 0, Absolute Basophils 0 11/18/17 0500: Sodium Cancelled, Potassium Cancelled, Chloride Cancelled, Carbon Dioxide Cancelled, Anion Gap Cancelled, BUN Cancelled, Creatinine Cancelled, Glucose Cancelled, Calcium Cancelled, Phosphorus Cancelled, Magnesium Cancelled, Total Bilirubin Cancelled, AST Cancelled, ALT Cancelled, Albumin Cancelled, CBC w Diff Cancelled, WBC Cancelled, RBC Cancelled, Hgb Cancelled, Hct Cancelled, MCV Cancelled, MCH Cancelled, MCHC Cancelled, RDW Cancelled, Plt Count Cancelled, MPV Cancelled 11/17/17 1010: Troponin I 0.05, TSH 0.608, Free T4 2.07 11/17/17 0850: pH 7.32 L, pCO2 60 *H, pO2 106 H, HCO3 31 H, ABG O2 Sat (Measured) 97.0, Carboxyhemoglobin 0.5 L, O2 Concentration % 35%, Respiration Rate 28, O2 Delivery Method BIPAP, Vent Mode ST, Expiratory Pressure 6, Inspiratory Pressure 26, Phlebotomy Draw Site LEFT RADIAL 11/17/17 0600: TSH Cancelled, Free T4 Cancelled 11/17/17 0310: Troponin I 0.05 11/17/17 0310: Anion Gap 11, Estimated GFR 39 L, Glucose 75, Calcium 8.8, Phosphorus 5.7 H, Magnesium 2.1, Total Bilirubin 0.3, AST 11 L, ALT 16 L, Albumin 3.1 L, CBC w Diff NO MAN DIFF REQ, RBC 3.61 L, MCV 79.7 L, MCH 24.2 L, MCHC 30.4 L, RDW 18.9 H, MPV 10.1, Gran % 78.8 H, Lymphocytes % 11.3 L, Monocytes % 5.3, Eosinophils % 3.9, Basophils % 0.7, Absolute Granulocytes 5.3, Absolute Lymphocytes 0.8 L, Absolute Monocytes 0.4, Absolute Eosinophils 0.3, Absolute Basophils 0 11/17/17 0145: pH 7.31 L, pCO2 61 *H, pO2 71 L, HCO3 30 H, ABG O2 Sat (Measured) 93.0 L, P- 50 (Temp Corrected) N, Carboxyhemoglobin 0.9 L, O2 Concentration % .35, Respiration Rate 28, O2 Delivery Method BIPAP, Vent Mode ST, Expiratory Pressure 6, Inspiratory Pressure 26, Phlebotomy Draw Site LEFT RADIAL 11/16/172109: pH 7.28 *L, pCO2 67 *H, pO2 87, HCO3 31 H, ABG O2 Sat (Measured) 95.0 L, P-50 (Temp Corrected) Y, Carboxyhemoglobin 1.2 L, O2 Concentration % 35%, Temperature 97.8, Respiration Rate 26, O2 Delivery Method BIPAP, Vent Mode ST, Expiratory Pressure 4, Inspiratory Pressure 24, Phlebotomy Draw Site RIGHT RADIAL 11/16/172108: CBC w Diff NO MAN DIFF REQ, RBC 4.09 L, MCV 80.2, MCH 24.4 L, MCHC 30.4 L, RDW 18.8 H, MPV 9.6, Gran % 79.0 H, Lymphocytes % 11.2 L, Monocytes % 6.2, Eosinophils % 2.6, Basophils % 1.0, Absolute Granulocytes 6.5, Absolute Lymphocytes 0.9 L, Absolute Monocytes 0.5, Absolute Eosinophils 0.2, Absolute Basophils 0.1 11/16/172009: Lactic Acid 1.5 11/16/172009: Anion Gap 12, Estimated GFR 39 L, BUN/Creatinine Ratio 17.1, Glucose 86, Calcium 9.0, Magnesium 2.1, Total Bilirubin 0.3, AST 14 L, ALT 11 L, Alkaline Phosphatase 54, Troponin I 0.05, Xjz-C-Pbblyefpvaz Pept 4820 H, Total Protein 7.0, Albumin 3.6, Globulin 3.4, Albumin/Globulin Ratio 1.1, PT 11.0, INR 1.05, APTT 22 L, D-Dimer High Sensitivty 664 H 11/16/171929: Urinalysis LIGHT H, Urine Color YEL, Urine Clarity CLDY H, Urine pH 6.5, Ur Specific [place] 1.025, Urine Protein 100 H, Urine Ketones NEG, Urine Nitrite NEG, Urine Bilirubin NEG, Urine Urobilinogen 0.2, Ur Leukocyte Esterase MOD H, Ur Microscopic SEDIMENT EXAMINED, Urine RBC 5-10 H, Urine WBC PACKD H, Urine Bacteria MANY H, Urine Hemoglobin LARGE H, Urine Glucose NEG 11/16/171919: pH 7.23 *L, pCO2 76 *H, pO2 92, HCO3 32 H, ABG O2 Sat (Measured) 95.0 L, P-50 (Temp Corrected) Y, Carboxyhemoglobin 0.9 L, O2 Concentration % 4L, Temperature 97.8, O2 Delivery Method NC, Phlebotomy Draw Site RIGHT RADIAL 11/16/171901: D-Dimer High Sensitivty Cancelled 11/16/17 1856: Lactic Acid Cancelled Microbiology 11/17 201 UPPER RESP: Surveillance Culture - COMP 11/17 201 GI: Surveillance Culture - COMP VANC RESIST ENTEROCOCCUS 11/16 1929 URINE ROUT: Urine Culture - COMP PSEUDOMONAS AERUGINOSA Assessment/Plan Assessment/Plan assessment: 1. Shortness of breath; multifactorial 2. History of chronic diastolic heart failure with mild exacerbation 3. Severe COPD 4. Paroxysmal atrial fibrillation Recommendations: -Continue current medication regimen -In view of the patient's reported pending discharge, consider transitioning to low-dose oral Lasix prior to discharge. I would probably discharge the patient on 20 mg oral daily for close follow-up at the extended [facility] with repeat metabolic profile later this week and close monitoring of the patient's daily weights, intakes, outputs, etc. -Follow-up with cardiology as outpatient. -Close monitoring of blood pressure [facility] facility with plans to reinstitute amlodipine if necessary. Continue telemetry? No
[2017-11-18 13:49] VITALS: BP 120/70
[2017-11-18 21:40] VITALS: BP 124/82
[2017-11-19 05:41] VITALS: BP 132/86
--- NOTE | 2017-11-19 07:15 | PN- Housestaff ---
See Addendum Subjective Follow-up For: CHF Subjective: No overnight events. Patient was asking to call his this morning. No other complaints. Review of Systems Constitutional: Reports: no symptoms. EENTM: Reports: no symptoms. Cardiovascular: Reports: no symptoms. Respiratory: Reports: no symptoms. Gastrointestinal: Reports: no symptoms. Genitourinary: Reports: no symptoms. Musculoskeletal: Reports: no symptoms. Skin: Reports: no symptoms. Neurological/Psychological: Reports: no symptoms. Hematologic/Endocrine: Reports: no symptoms. Immunologic/Allergic: Reports: no symptoms. Objective Last 24 Hrs of Vital Signs/I&O Vital Signs Date Time Temp Pulse Resp B/P B/P Pulse O2 O2 Flow FiO2 Mean Ox Delivery Rate 11/19 0541 99.4 88 20 132/86 95 Nasal 2.0L Cannula 11/19 0000 Nasal 2.0L Cannula 11/18 2140 99.2 86 20 124/82 94 Nasal 2.0L Cannula 11/18 1349 98.6 80 18 120/70 94 Nasal 2.0L Cannula 11/18 1056 93 Nasal 2.0L Cannula 11/18 1022 57 118/70 11/18 0800 94 Nasal 2.0L Cannula Intake & Output 11/19 0800 11/19 0000 11/18 1600 Intake Total 860 Output Total 800 850 300 Balance -800 -850 560 Intake, Oral 860 Number 4 Bowel Movements Output, Urine 800 850 300 Patient 131.088 kg Weight Physical Exam General Appearance: Alert, Oriented X3, Cooperative, No Acute Distress Cardiovascular: Regular Rate, Normal S1, Normal S2 Lungs: distent breath sounds Abdomen: Soft, No Tenderness, obese Extremities: Normal Pulses Current Medications: Current Medications Sig/Frandy Start time Last Medication Dose Route Stop Time Status Admin Albuterol Sulfate 3 ML Q4P PRN 11/17 1100 AC INH Allopurinol 100 MG DAILY 11/18 1036 AC 11/18 PO 1200 Amiodarone HCl 200 MG DAILY 11/17 1000 AC 11/18 PO 1022 Calcium Carbonate 500 MG ONCE ONE 11/18 2014 DC 11/18 PO 11/18 Furosemide 20 MG DAILY 11/19 1000 AC PO Furosemide 40 MG BID 11/17 220 DC 11/18 IV 1024 Heparin Sodium 5,000 UNIT Q8 11/17 0600 AC 11/19 (Porcine) SC 0639 Melatonin 5 MG 11/18 0230 AC 11/18 PO 2218 Methylprednisolone 40 MG Q12 11/17 0145 DC 11/18 IV 1021 Omeprazole 40 MG DAILY AC 11/19 0700 AC 11/19 PO 0639 Pantoprazole Sodium 40 MG DAILY 11/17 1000 DC 11/18 IV 1024 Prednisone 40 MG DAILY 11/19 1000 AC PO Sertraline HCl 100 MG DAILY 11/18 1037 AC 11/18 PO 1200 Assessment/Plan Assessment: The patient is 77-year-old gentleman with past medical history of morbid obesity , paroxysmal atrial fibrillation not on any anticoagulation, COPD on 2 L home oxygen, OHS, CAD, hypertension, chronic diastolic heart failure, CKD stage III, 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 with lethargy, altered mental status and hypoxia. He was initially admitted to the ICU for acute hypoxic respiratory failure secondary to acute on chronic heart failure and was transferred to general medicine yesterday. He is cleared for discharge medically and is waiting for insurance approval. Problem list: 1. Acute on chronic hypercapnic hypoxic respiratory failure 2. Acute on chronic heart failure 3. Altered mental status #Acute on chronic hypercapnic and hypoxic respiratory failure: Patient presented with respiratory failure. It seems like he was not using his oxygen or CPAP machine at home. Cardiology evaluated and thinks it was likely secondary to heart failure. -Continue TRC nebs -Taper steroids -Continue furosemide 20 mg daily, BEP a few days post discharge -Appreciate cardiology recommendations -Reinforce compliance with oxygen therapy #Altered mental status likely secondary to hypercapnia and hypoxia - Resolved -CTM #Chronic medical conditions: hypertension, CAD, atrial fibrillation and depression -Continue home meds DVT prophylaxis with subcutaneous heparin pure/regular liquids DNR/DNI Problem List: 1. Acute exacerbation of CHF (congestive heart failure) Pain Ratin Pain Location: no Pain Goal: Remain pain free Pain Plan: see a/p Tomorrow's Labs & Rationales: no
--- NOTE | 2017-11-19 08:40 | PN- Pulmonary ---
Subjective HPI/Critical Care Issues: Patient is awake alert and comfortable Objective Current Medications: Current Medications Sig/Frandy Start time Last Medication Dose Route Stop Time Status Admin Albuterol Sulfate 3 ML Q4P PRN 11/17 1100 AC INH Allopurinol 100 MG DAILY 11/18 1036 AC 11/18 PO 1200 Amiodarone HCl 200 MG DAILY 11/17 1000 AC 11/18 PO 1022 Calcium Carbonate 500 MG ONCE ONE 11/18 2014 DC 11/18 PO 11/18 Furosemide 20 MG DAILY 11/19 1000 AC PO Furosemide 40 MG BID 11/17 2200 DC 11/18 IV 1024 Heparin Sodium 5,000 UNIT Q8 11/17 0600 AC 11/19 (Porcine) SC 0639 Melatonin 5 MG 2200 11/18 0230 AC 11/18 PO 2218 Methylprednisolone 40 MG Q12 11/17 0145 DC 11/18 IV 1021 Omeprazole 40 MG DAILY AC 11/19 0700 AC 11/19 PO 0639 Pantoprazole Sodium 40 MG DAILY 11/17 1000 DC 11/18 IV 1024 Prednisone 40 MG DAILY 11/19 1000 AC PO Sertraline HCl 100 MG DAILY 11/18 1037 AC 11/18 PO 1200 Vital Signs & I&O Last 24 Hrs of Vitals and I&O: Vital Signs Date Time Temp Pulse Resp B/P B/P Pulse O2 O2 Flow FiO2 Mean Ox Delivery Rate 11/19 0541 99.4 88 20 132/86 95 Nasal 2.0L Cannula 11/19 0000 Nasal 2.0L Cannula 11/18 2140 99.2 86 20 124/82 94 Nasal 2.0L Cannula 11/18 1349 98.6 80 18 120/70 94 Nasal 2.0L Cannula 11/18 1056 93 Nasal 2.0L Cannula 11/18 1022 57 118/70 Intake & Output 11/19 1600 11/19 0800 11/19 0000 Intake Total 240 Output Total 800 1150 Balance -800 -910 Intake, Oral 240 Output, Urine 800 1150 Patient 289 lb Weight Since saturation 2 L 95% exam of his chest shows diminished breath sounds at the bases there are no wheezes cardiac exam shows regular S1 and S2 without murmurs Impression/Plan Impression/Plan Impression/Plan: 77-year-old with COPD sleep apnea has improved acute on chronic hypercapnic respiratory failure. He has baseline chronic hypercapnic respiratory failure. Recommendations: Taper FiO2 Taper prednisone. Patient appears stable for discharge from pulmonary standpoint
--- NOTE | 2017-11-19 09:33 | Discharge Summary ---
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 with lethargy, AMS and hypoxia. He was initially admitted to the ICU for acute hypoxic respiratory failure secondary to acute on chronic heart failure( on admission oxygen saturation was 77% and pCO2 was 76 on ABG), the patient was also not compliant with his CPAP and oxygen at home. On admission BNP was elevated up to 4820 and chest x-ray showed pulmonary edema. The Patient was managed IV furosemide that was switched to oral furosemide prior to discharge. Cardiology recommended discharging the patient on 20 mg furosemide daily. Potassium and creatinine was monitor while in furosemide. Cardiology also recommended repeating BEP within a week of discharge. The patient will be instructed to follow with police clerk within 1 week of discharge. The patient was given IV Solu-Medrol in the first day of admission to optimize his COPD, he will be discharged on prednisone taper as per medication CMR. For the obstructive sleep apnea patient need to be encouraged to use nighttime CPAP. Altered mental status most likely secondary to hypercapnia and hypoxia, resolved with the above-mentioned interventions. For chronic medical conditions including hypertension, COPD, A. fib, and depression we continued all home medications. Allergies: Coded Allergies: No Known Allergies (07/02/17) Disposition Summary Disposition Principal Diagnosis: Acute hypercarbic respiratory failure secondary to decompensated diastolic heart failure. Additional Diagnosis: Decompensated heart failure Hypertension AMS Discharge Disposition: SNF Discharge Instructions General Discharge Information Code Status: Do Not Resucitate/Intubat Patient's Diet: Heart healthy with the pure consistency and regular thin liquid Patient's Activity: As tolerated Follow-Up Instructions/Appts: Please follow with primary care doctor within 1 week Please follow-up with police clerk within 1 week Please repeat BEP with 1 week of discharge Please monitor weight and urine output post discharge until sees police clerk Medications at Discharge Discharge Medications: Continue taking these medications: Trazodone HCl (Trazodone HCl) 50 MG TABLET 0.5 Tablet ORAL TAKE AT BEDTIME Comments: Last Taken: 11/13/17 Time: 10:30 AM Lidocaine (Aspercreme) 4 % ADH..PATCH 1 PATCH TRANSDERM DAILY Comments: Last Taken: 11/13/17 Time: 10:30 AM Calcium Polycarbophil (Fibercon) 625 MG TABLET 1 Tablet ORAL TWICE DAILY as needed for CONSTIPATION Comments: NOT GIVEN IN HOSPITAL Gabapentin (Gabapentin) 300 MG CAPSULE 1 Capsule ORAL TWICE DAILY Comments: Last Taken: 11/13/17 Time: 10:30 AM Calcium Carbonate/Vitamin D3 (Caltrate 600 + D Tablet) 600 MG-800 TABLET 1 Tablet ORAL DAILY Comments: NOT GIVEN IN HOSPITAL Mirtazapine (Remeron) 30 MG TABLET 0.5 Tablet ORAL Every night Comments: Last Taken: 11/12/17 Time: 8:30 PM Acetaminophen (Acetaminophen) 325 MG TABLET 2 Tablet ORAL Every 6-8 Hours as Needed Comments: NOT GIVEN IN HOSPITAL Naloxone HCl (Naloxone HCl) 0.4 MG/ML VIAL 1 Application In the nose NEEDED Comments: NOT GIVEN IN HOSPITAL Sertraline HCl (Zoloft) 100 MG TABLET 1 Tablet ORAL DAILY Qty = 30 Comments: NOT GIVEN IN HOSPITAL Amiodarone (Cordarone) 200 MG TAB 1 Tablet ORAL DAILY Qty = 30 Comments: NOT GIVEN IN HOSPITAL Allopurinol (Allopurinol) 100 MG TABLET 1 Tablet ORAL DAILY Qty = 30 Comments: NOT GIVEN IN HOSPITAL Amlodipine Besylate (Amlodipine Besylate) 5 MG TABLET 1 Tablet ORAL DAILY Qty = 30 Comments: NOT GIVEN IN HOSPITAL Start taking the following new medications: Prednisone (Prednisone) 10 MG TABLET 1 Tablet ORAL DAILY Qty = 10 No Refills Instructions: Take 40mg on 11/19/17, 30mg on 11/20/17, 20mg on 11/21/17, and 10mg on 11/22/17, then stop. Furosemide (Furosemide) 20 MG TABLET 1 Tablet ORAL DAILY Qty = 30 No Refills Copies To: [place],Fredy Pinto
--- NOTE | 2017-11-19 10:14 | PN- Cardiology ---
Subjective Subjective: The patient is awake and comfortable. Shortness of breath has improved. No chest pain. No palpitations. No diaphoresis. Objective Vital Signs and I&Os Vital Signs Date Time Temp Pulse Resp B/P B/P Pulse O2 O2 Flow FiO2 Mean Ox Delivery Rate 11/19 0935 65 136/86 11/19 0541 99.4 88 20 132/86 95 Nasal 2.0L Cannula 11/19 0000 Nasal 2.0L Cannula 11/18 2140 99.2 86 20 124/82 94 Nasal 2.0L Cannula 11/18 1349 98.6 80 18 120/70 94 Nasal 2.0L Cannula 11/18 1056 93 Nasal 2.0L Cannula 11/18 1022 57 118/70 Intake & Output 11/19 1600 11/19 0800 11/19 0000 11/18 1600 11/18 0800 11/18 0000 Intake Total 860 340 Output Total 800 850 300 800 250 Balance -800 -850 560 -800 90 Intake, Oral 860 340 Number 4 1 Bowel Movements Output, Urine 800 850 300 800 250 Patient 289 lb 300 lb Weight Physical Exam: Gen: The patient is in no acute distress HEENT: Normal nose, ears, and oropharynx. Pupils equal bilaterally. Conjunctiva normal. Neck: Supple with no JVD, no masses, and no thyromegaly Lungs: Decreased breath sounds with normal respiratory effort Heart: RRR, S1, S2, no murmurs. No peripheral edema, 2+ pulses in the lower extremities bilaterally Abdomen: Soft, nontender, no masses. No hepatomegaly. No splenomegaly Extremities: No clubbing or cyanosis. Normal muscle strength in the upper and lower extremities Skin: Normal skin turgor with no skin ulcers or lesions noted. Neuro: Cranial nerves intact. Sensation intact Current Medications: Current Medications Sig/Frandy Start time Last Medication Dose Route Stop Time Status Admin Albuterol Sulfate 3 ML Q4P PRN 11/17 1100 AC INH Allopurinol 100 MG DAILY 11/18 1036 AC 11/19 PO 0935 Amiodarone HCl 200 MG DAILY 11/17 1000 AC 11/19 PO 0935 Calcium Carbonate 500 MG ONCE ONE 11/18 2014 DC 11/18 PO 11/18 Furosemide 20 MG DAILY 11/19 1000 AC 11/19 PO 0934 Furosemide 40 MG BID 11/17 2199 DC 11/18 IV 1024 Heparin Sodium 5,000 UNIT Q8 11/17 0600 AC 11/19 (Porcine) SC 0639 Melatonin 5 MG 2200 11/18 0230 AC 11/18 PO 2218 Methylprednisolone 40 MG Q12 11/17 0145 DC 11/18 IV 1021 Omeprazole 40 MG DAILY AC 11/19 0700 AC 11/19 PO 0639 Pantoprazole Sodium 40 MG DAILY 11/17 1000 DC 11/18 IV 1024 Prednisone 40 MG DAILY 11/19 1000 AC 11/19 PO 0935 Sertraline HCl 100 MG DAILY 11/18 1037 AC 11/19 PO 0935 Results Last 48 Hrs of Labs/Mics: Laboratory Tests 11/18/17 0710: Anion Gap 11, Estimated GFR 33 L, BUN/Creatinine Ratio 20.5, CBC w Diff NO MAN DIFF REQ, RBC 3.46 L, MCV 78.9 L, MCH 24.5 L, MCHC 31.1 L, RDW 18.0 H, MPV 10.5 H, Gran % 90.9 H, Lymphocytes % 8.5 L, Monocytes % 0.5 L, Eosinophils % 0.1, Basophils % 0, Absolute Granulocytes 5.6, Absolute Lymphocytes 0.5 L, Absolute Monocytes 0 L, Absolute Eosinophils 0, Absolute Basophils 0 11/18/17 0500: Sodium Cancelled, Potassium Cancelled, Chloride Cancelled, Carbon Dioxide Cancelled, Anion Gap Cancelled, BUN Cancelled, Creatinine Cancelled, Glucose Cancelled, Calcium Cancelled, Phosphorus Cancelled, Magnesium Cancelled, Total Bilirubin Cancelled, AST Cancelled, ALT Cancelled, Albumin Cancelled, CBC w Diff Cancelled, WBC Cancelled, RBC Cancelled, Hgb Cancelled, Hct Cancelled, MCV Cancelled, MCH Cancelled, MCHC Cancelled, RDW Cancelled, Plt Count Cancelled, MPV Cancelled Recent Imaging Studies: Chest x-ray 11/18/17: Minimally increasing pulmonary edema by comparison with the prior study of 11/16/2017. Assessment/Plan Assessment/Plan Assessment: 1. Shortness of breath; multifactorial 2. History of chronic diastolic heart failure with mild exacerbation 3. Severe COPD 4. Paroxysmal atrial fibrillation Recommendations: * Continue current medications * Would discharge on Lasix 20 mg daily. * Follow up with cardiology as an outpatient. * Basic metabolic profile to be checked within a week at extended care facility Continue telemetry? Yes
[2017-11-19 14:51] VITALS: BP 136/86
== END 2017-11-19 14:57 | DRG 291 ==
LOC: ERH 18:31 → 2NB 22:50 → ERHI 22:50 → CRI 22:50 → EDBEDREQ 23:47 → CRI 11-17 01:46 → ENTRNSPT 11-17 16:48 → EDTRNSPT 11-17 17:15 → EDTRNSPTSTS 11-17 17:15 → 2NB 11-17 17:38 → CMPTRNSPT 11-17 17:52 → 2NB 11-18 08:49 → ENPENDDIS 11-19 12:44 → 2NB 11-19 14:57
PROVIDERS: Physician Assistant Medical; Student in an Organized Health Care Education/Training Program
DX: I13.0 Hypertensive heart and chronic kidney disease with heart failure and stage 1 through stage 4 chronic kidney disease, or unspecified chronic kidney disease (principal); J96.21 Acute and chronic respiratory failure with hypoxia; I48.0 Paroxysmal atrial fibrillation; I50.33 Acute on chronic diastolic (congestive) heart failure; J96.22 Acute and chronic respiratory failure with hypercapnia; E66.2 Morbid (severe) obesity with alveolar hypoventilation; J44.1 Chronic obstructive pulmonary disease with (acute) exacerbation; Z68.42 Body mass index [BMI] 45.0-49.9, adult; N13.8 Other obstructive and reflux uropathy; Z99.81 Dependence on supplemental oxygen; N18.3 Chronic kidney disease, stage 3 (moderate); Z96.0 Presence of urogenital implants; F03.90 Unspecified dementia, unspecified severity, without behavioral disturbance, psychotic disturbance, mood disturbance, and anxiety; I25.10 Atherosclerotic heart disease of native coronary artery without angina pectoris; F32.9 Major depressive disorder, single episode, unspecified; N40.1 Benign prostatic hyperplasia with lower urinary tract symptoms; N39.498 Other specified urinary incontinence; Z91.19 Patient's noncompliance with other medical treatment and regimen; H91.90 Unspecified hearing loss, unspecified ear; F41.9 Anxiety disorder, unspecified; I25.2 Old myocardial infarction
CPT/HCPCS: 2NBP; ERO; 36415; 71045; 81001; 82436; 87086; 93005; 93010; 93970; 96374; 96375; 99291; J0696; J1644; J1940; J2920